=== PATIENT | male | born 1950 | race African-American/Black ===

== ENCOUNTER 2016-07-05 12:36 | Inpatient (IN) | payer MEDICARE, OTHER ==
[2016-07-05 13:51] LABS: ABSOLUTE BASOPHILS # (AUTO) 0.1 10^3/uL (0.0-0.2); ABSOLUTE LYMPHOCYTES (AUTO) 0.8 10^3/uL (0.5-4.7); ABSOLUTE MONOCYTES (AUTO) 1.4 10^3/uL (0.1-1.4); ABSOLUTE NEUT (AUTO) 6.7 10^3/uL (1.7-8.2); BASOPHILS % (AUTO) 0.9 % (0-2); EOSINOPHILS % (AUTO) 0.1 % (0-6); HEMATOCRIT 21.9 % (37.9-51.0); HGB HCT DIFFERENCE -2.1; LYMPHOCYTES % (AUTO) 8.6 % (13-45); MEAN CORPUSCULAR HEMOGLOBIN 18.8 pg (27.0-33.4); MEAN CORPUSCULAR VOLUME 63 fl (80-97); MONOCYTES % (AUTO) 15.8 % (3-13); RED BLOOD COUNT 3.49 10^6/uL (4.35-5.55); RED CELL DISTRIBUTION WIDTH 22.3 % (11.5-14.0); SEGMENTED NEUTROPHILS % (AUTO) 74.6 % (42-78)
[2016-07-05 13:55] LABS: ALANINE AMINOTRANSFERASE 21 U/L (21-72); ALKALINE PHOSPHATASE 37 U/L (38-126); ANION GAP 12 (5-19); ASPARTATE AMINO TRANSFERASE 22 U/L (17-59); BILIRUBIN,TOTAL 0.4 mg/dL (0.2-1.3); BLOOD UREA NITROGEN 18 mg/dL (7-20); CARBON DIOXIDE 23 mmol/L (22-30); CHLORIDE 106 mmol/L (98-107); CREATINE KINASE 77 U/L (55-170); CREATININE RESULT 1.38 mg/dL (0.52-1.25); GLUCOSE 97 mg/dL (75-110); POTASSIUM 4.1 mmol/L (3.6-5.0); SODIUM 140.6 mmol/L (137-145); TOTAL PROTEIN 6.3 g/dL (6.3-8.2)
[2016-07-05 13:56] LABS: APPEARANCE,URINE SLIGHTLY-CLOUDY; BILIRUBIN,URINE NEGATIVE (NEGATIVE); GLUCOSE, URINE NEGATIVE (NEGATIVE); KETONES,URINE TRACE mg/dL (NEGATIVE); LEUKOCYTE ESTERASE,URINE NEGATIVE (NEGATIVE); NITRITE,URINE NEGATIVE (NEGATIVE); PROTEIN,URINE NEGATIVE (NEGATIVE); URINE SPECIFIC GRAVITY 1.016; UROBILINOGEN,URINE NEGATIVE mg/dL (<2.0)
[2016-07-05 14:00] LABS: HEMOGLOBIN 6.6 g/dL (13.5-17.0)
--- NOTE | 2016-07-05 14:01 | ER Document Report ---
ED Dizziness/Weakness - General Chief Complaint: Dizziness Stated Complaint: DIZZINESS Mode of Arrival: Medic Information source: Patient, Emergency Med Personnel, Outside Facility Records TRAVEL OUTSIDE OF THE [place] IN LAST 30 DAYS: No - HPI Patient complains to provider of: Near-syncope - TODAY, IN WAITING ROOM @ [facility] Onset: This afternoon Onset/Duration: Sudden Quality of pain: No pain Context: denies: Chronic dizziness, Trauma, Vertigo Associated symptoms: Fainted, Lightheaded, Palpitations, Weak all over. denies : Chest pain Exacerbated by: Change in position - STANDING Baseline gait: Walks w/o assistance - Related Data Allergies/Adverse Reactions: amoxicillin [Amoxicillin] Allergy (Mild, Verified 02/11/16 14:02) diarrhea,vomiting,SOB Past Medical History - General Information source: Patient, Relative - Social History Smoking Status: Former Smoker Cigarette use (# per day): No Lives with: Spouse/Significant other Family History: CVA - MOTHER Patient has suicidal ideation: No Patient has homicidal ideation: No - Past Medical History Cardiac Medical History: Reports: Hx Coronary Artery Disease - 2 stents in legs ', Hx Hypercholesterolemia, Hx Hypertension - meds x many yrs, Hx Peripheral Vascular Disease, Other - TEMPORAL ARTERITIS Denies: Hx DVT, Hx Heart Attack Pulmonary Medical History: Reports: Hx Pneumonia Denies: Hx Asthma, Hx Bronchitis, Hx COPD - lung collapsed 1983 ,surgery , Hx Tuberculosis Neurological Medical History: Denies: Hx Cerebrovascular Accident, Hx Seizures Endocrine Medical History: Reports: Hx Diabetes Mellitus Type 2 Renal/ Medical History: Reports: None GI Medical History: Reports: Hx Hiatal Hernia Musculoskeltal Medical History: Reports Hx Arthritis - knees Skin Medical History: Reports None Psychiatric Medical History: Reports: None Past Surgical History: Reports: Hx Cardiac Surgery, Hx Orthopedic Surgery - left knee surgery, Hx Vascular Surgery - [facility] BYPASS 2004, Other - COLONOSCOPY 5-6 YRS AGO, NEG.. Denies: Hx Pacemaker - Immunizations Hx Diphtheria, Pertussis, Tetanus Vaccination: No Hx Pneumococcal Vaccination: 10/15/11 Review of Systems - Review of Systems Constitutional: See HPI EENT: No symptoms reported Cardiovascular: See HPI Respiratory: Short of breath Gastrointestinal: No symptoms reported. denies: Rectal bleeding Genitourinary: No symptoms reported. denies: Hematuria Musculoskeletal: No symptoms reported Skin: No symptoms reported Neurological/Psychological: No symptoms reported Physical Exam - Vital signs Vitals: Pulse Resp BP Pulse Ox 103 H 16 106/73 97 07/05/16 12:50 07/05/16 12:50 07/05/16 12:50 07/05/16 12:50 Interpretation: Hypotensive, Tachycardic - General General appearance: Appears well, Alert In distress: None - HEENT Head: Normocephalic Eyes: Pale conjunctiva Ears: Normal Nasal: Normal Mouth/Lips: Normal Mucous membranes: Normal Pharynx: Normal Neck: Normal - Respiratory Respiratory status: No respiratory distress Breath sounds: Normal - Cardiovascular Rhythm: Regular Heart sounds: Normal auscultation Murmur: No - Abdominal Inspection: Normal Distension: No distension Bowel sounds: Normal - Rectal Tenderness: No Hemorrhoids: None Prostate: Normal - Extremities General upper extremity: Normal inspection General lower extremity: Normal inspection. No: Edema - Neurological Neuro grossly intact: Yes Cognition: Normal Orientation: AAOx4 - Psychological Associated symptoms: Normal affect, Normal mood - Skin Skin Temperature: Warm Skin Moisture: Dry Skin Color: Normal Skin Turgor: Elastic Course - Vital Signs Vital signs: Temp Pulse Resp BP Pulse Ox 98.7 F 103 H 18 119/64 98 07/05/16 14:01 07/05/16 12:50 07/05/16 14:01 07/05/16 14:01 07/05/16 14:01 - Laboratory Result Diagrams: 07/05/16 12:50 07/05/16 12:50 Laboratory results interpreted by me: 07/05/16 07/05/16 07/05/16 12:50 12:50 13:28 RBC 3.49 L Hgb 6.6 L Hct 21.9 L MCV 63 L MCH 18.8 L MCHC 30.0 L RDW 22.3 H Lymphocytes % 8.6 L Monocytes % 15.8 H Creatinine 1.38 H Est GFR (Non-Af Amer) 51 L Alkaline Phosphatase 37 L Urine Ketones TRACE H Urine Ascorbic Acid 40 H Crossmatch 07/05/16 15:00 RBC Hgb Hct MCV MCH MCHC RDW Lymphocytes % Monocytes % Creatinine Est GFR (Non-Af Amer) Alkaline Phosphatase Urine Ketones Urine Ascorbic Acid Crossmatch See Detail - Diagnostic Test Radiology reviewed: Image reviewed, Reports reviewed - EKG Interpretation by Me EKG shows normal: Sinus rhythm, [place], Intervals, QRS Complexes, ST-T Waves Rate: Tachycardia - Consults DR. GUZMAN Time consulted: 16:20 Consulted provider: will see as inpatient Discharge - Discharge Clinical Impression: Hx of temporal arteritis Anemia Qualifiers: Anemia type: unspecified type Qualified Code(s): D64.9 - Anemia, unspecified Syncope Qualifiers: Syncope type: unspecified Qualified Code(s): R55 - Syncope and collapse Diabetes mellitus type II, controlled Qualifiers: Diabetes mellitus complication status: with kidney complications Diabetes mellitus complication detail: with chronic kidney disease Diabetes mellitus detention insulin use: without detention use Chronic kidney disease stage: unspecified stage Qualified Code(s): E11.22 - Type 2 diabetes mellitus with diabetic chronic kidney disease Condition: Good Disposition: ADMITTED INPATIENT Admitting Provider: Walter Unit Admitted: Telemetry
[2016-07-05 14:07] LABS: CREATINE KINASE MB 0.8 ng/mL (<4.55)
[2016-07-05 14:12] LABS: HYPOCHROMASIA 1+; POLYCHROMASIA SLIGHT; TOXIC GRANULATION SLIGHT
[2016-07-05 14:13] LABS: ANISOCYTOSIS 2+; SCHISTOCYTES SLIGHT
[2016-07-05 14:15] LABS: MICROCYTOSIS 2+
[2016-07-05 14:20] LABS: TROPONIN I 0.164 ng/mL
[2016-07-05] MEDS ORDERED: NORMAL SALINE 250 ML IV PRN (14:57)
[2016-07-05 15:32] LABS: PROTHROMBIN TIME 13.2 SEC (11.4-15.4)
[2016-07-05 17:38] LABS: LIPASE 41.6 U/L (23-300); PHOSPHORUS 3.8 mg/dL (2.5-4.5)
[2016-07-05 18:09] LABS: CARCINOEMBRYONIC ANTIGEN 2.7 ng/mL (<3.0)
--- NOTE | 2016-07-05 22:13 | EKG REPORT ---
SEVERITY:- OTHERWISE NORMAL ECG - SINUS TACHYCARDIA : Confirmed by: oRbert Blas 05-Jul-2016 22:11:33
[2016-07-06] MEDS ORDERED: FOLIC ACID 1 MG TABLET PO ONE (00:15)
[2016-07-06] MEDS ORDERED: GLIPIZIDE 10 MG TABLET PO ONE (00:15)
[2016-07-06] MEDS ORDERED: ATORVASTATIN CALCIUM 10 MG TABLET PO ONE (00:15)
[2016-07-06] MEDS ORDERED: HYDROCHLOROTHIAZIDE 25 MG TABLET PO ONE (00:15)
[2016-07-06] MEDS ORDERED: LISINOPRIL 10 MG TABLET PO ONE (00:15)
[2016-07-06] MEDS ORDERED: OMEGA-3 ACID ETHYL ESTERS 1 GM CAPSULE PO ONE (00:15)
[2016-07-06] MEDS ORDERED: LANSOPRAZOLE 15 MG TAB.RAP.DR PO ONE (00:15)
[2016-07-06] MEDS ORDERED: ASPIRIN 81 MG TABLET, CHEWABLE PO ONE (00:15)
[2016-07-06] MEDS ORDERED: CLOPIDOGREL BISULFATE 75 MG TABLET PO ONE (00:15)
[2016-07-06] MEDS ORDERED: METOPROLOL SUCCINATE 25 MG TAB.SR.24H PO ONE (00:15)
[2016-07-06] MEDS ORDERED: METFORMIN HCL 500 MG TABLET PO ONE (01:00)
[2016-07-06] MEDS ORDERED: DOXAZOSIN MESYLATE 2 MG TABLET PO ONE (01:00)
[2016-07-06] MEDS: NORMAL SALINE 1000 ML 1,000 ML IV PRN ×3 (01:38→12:14)
[2016-07-06 04:40] LABS: HEMATOCRIT 25.7 % (37.9-51.0); HGB HCT DIFFERENCE -1.7; MEAN CORPUSCULAR HEMOGLOBIN 20.5 pg (27.0-33.4); MEAN CORPUSCULAR HGB CONC 31.2 g/dL (32.0-36.0); MEAN CORPUSCULAR VOLUME 66 fl (80-97); RED BLOOD COUNT 3.91 10^6/uL (4.35-5.55); RED CELL DISTRIBUTION WIDTH 26.6 % (11.5-14.0); WHITE BLOOD COUNT 5.7 10^3/uL (4.0-10.5)
[2016-07-06 04:41] LABS: ANION GAP 9 (5-19); BLOOD UREA NITROGEN 13 mg/dL (7-20); CALCIUM 8.8 mg/dL (8.4-10.2); CARBON DIOXIDE 25 mmol/L (22-30); CHLORIDE 104 mmol/L (98-107); CREATININE RESULT 1.27 mg/dL (0.52-1.25); GLUCOSE 108 mg/dL (75-110); POTASSIUM 4.1 mmol/L (3.6-5.0); SODIUM 138.3 mmol/L (137-145)
[2016-07-06 04:53] LABS: BASOPHILS % (MANUAL) 0 % (0-2); EOSINOPHILS % (MANUAL) 0 % (0-6); LYMPHOCYTES % (MANUAL) 22 % (13-45); TOTAL CELLS COUNTED 100
[2016-07-06 04:57] LABS: ANISOCYTOSIS 3+; HYPOCHROMASIA 2+; MICROCYTOSIS 2+; OVALOCYTES 1+; POIKILOCYTOSIS 1+; POLYCHROMASIA 1+; SCHISTOCYTES 1+; TOXIC GRANULATION SLIGHT
[2016-07-06 04:58] LABS: TARGET CELLS SLIGHT
[2016-07-06 05:17] LABS: FERRITIN 9.08 ng/mL (17.9-464.0)
[2016-07-06 05:52] LABS: FOLATE > 20.00 ng/mL (>2.76)
[2016-07-06] MEDS: GLIPIZIDE 10 MG TABLET PO SCH ×3 (09:16→17:45)
[2016-07-06] MEDS: METFORMIN HCL 500 MG TABLET PO SCH ×3 (09:16→17:45)
[2016-07-06] MEDS: HYDROCHLOROTHIAZIDE 25 MG TABLET PO SCH (09:17)
[2016-07-06] MEDS: LANSOPRAZOLE 15 MG TAB.RAP.DR PO SCH (09:18)
[2016-07-06] MEDS: OMEGA-3 ACID ETHYL ESTERS 1 GM CAPSULE PO SCH (09:19)
[2016-07-06] MEDS: METOPROLOL SUCCINATE 25 MG TAB.SR.24H PO SCH (09:20)
[2016-07-06] MEDS: CLOPIDOGREL BISULFATE 75 MG TABLET PO SCH (09:20)
[2016-07-06] MEDS ORDERED: CINNAMON BARK 1000 MG PO SCH (10:00)
[2016-07-06] MEDS ORDERED: ASPIRIN 81 MG TABLET, CHEWABLE PO SCH (10:00)
[2016-07-06] MEDS ORDERED: FOLIC ACID 1 MG TABLET PO SCH (10:00)
[2016-07-06] MEDS ORDERED: ATORVASTATIN CALCIUM 10 MG TABLET PO SCH (10:00)
[2016-07-06] MEDS: POTASSIUM CHLORIDE 10 MEQ TABLET.SA PO SCH ×2 (10:37→17:45)
[2016-07-06] MEDS ORDERED: PREDNISONE 1 MG TABLET PO ONE (11:00)
[2016-07-06] MEDS ORDERED: PREDNISONE 5 MG TABLET PO ONE (11:00)
[2016-07-06] MEDS: FOLIC ACID 1 MG TABLET PO SCH (12:13)
[2016-07-06] MEDS: LISINOPRIL 10 MG TABLET PO SCH (12:16)
--- NOTE | 2016-07-06 15:52 | PDOC H&P ---
History of Present Illness Admission Date/PCP: 07/05/16 16:58 JOSEPH AKINS MD History of Present Illness: JOSE GAMEZ is a 65 year old male with history of peripheral vascular disease , status post aorto- bifemoral bypass graft many years ago, he was in the waiting room of Dr. Akins's office when he had episode of a near syncope spell. He was then transferred from the urgent care to the emergency room for evaluation. In the emergency room he was evaluated he was found to have hemoglobin of 6.6 with very low MCV, subsequentl blood work revealed severe iron deficiency with low ferritin, serum iron. Patient denies any passage of black tarry stool or any hematochezia, he had colonoscopy about 5 years ago, but he admitted to having episodic epistaxis almost on a regular basis the last couple of weeks. He believes that could have been the reason for the anemia,in the emergency room cardiac enzymes drawn and it was elevated at 0.1. He denied any chest pain or any chest symptoms, he has risk factors for ischemic heart disease, he has diabetes mellitus, peripheral vascular disease. 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, he said the vessel of the scalp was biopsied, he is on tapering dose of prednisone for that Past Medical History Cardiac Medical History: Reports: Hyperlipidema, Hypertension - meds x many yrs , Peripheral Vascular Disease, Other - TEMPORAL ARTERITIS Pulmonary Medical History: Reports: Pneumonia Endocrine Medical History: Reports: Diabetes Mellitus Type 2 Renal/ Medical History: Reports: None GI Medical History: Reports: Hiatal Hernia Musculoskeltal Medical History: Reports: Arthritis - knees Skin Medical History: Reports: None Psychiatric Medical History: Reports: None Past Surgical History Past Surgical History: Reports: Orthopedic Surgery - left knee surgery, Vascular Surgery - [facility] BYPASS 2004, Other - COLONOSCOPY 5-6 YRS AGO, NEG. Social History Lives with: Spouse/Significant other Smoking Status: Former Smoker Frequency of Alcohol Use: None Hx Recreational Drug Use: No Hx Prescription Drug Abuse: No - Advance Directive Resuscitation Status: Full Code Family History Family History: CVA - MOTHER Parental Family History Reviewed: Yes Children Family History Reviewed: Yes Sibling(s) Family History Reviewed.: Yes Medication/Allergy Home Medications: Aspirin [Aspirin 81 mg Chewable Tablet] 81 mg PO 1600 10/13/11 Clopidogrel Bisulfate [Plavix 75 Mg Tablet] 75 mg PO DAILY 10/13/11 Docosahexanoic Acid/Epa [Fish Oil Softgel] 1 each PO DAILY 10/13/11 Glipizide 10 mg PO TID 10/13/11 Lisinopril/Hydrochlorothiazide [Zestoretic 20-25 Mg Tablet] 1 each PO DAILY 14/05 Metformin HCl [Glucophage] 1,000 mg PO TID 10/13/11 Metoprolol Succinate [Toprol-Xl 25 Mg Tab.Sr] 25 mg PO DAILY 10/13/11 Temazepam [Restoril] 30 mg PO QHS 10/13/11 Terazosin HCl [Hytrin] 2 mg PO QHS 10/13/11 Potassium Chloride [Klor-Con 10 Meq Tablet.sa] 10 meq PO BID 10/17/12 Atorvastatin Calcium [Lipitor 10 mg Tablet] 10 mg PO DAILY 02/11/16 Cinnamon Bark [Cinnamon Bark 500 mg Capsule] 1,000 mg PO DAILY 02/11/16 Folic Acid [Folic Acid] 1 mg PO DAILY 07/05/16 Omeprazole [Omeprazole] 20 mg PO DAILY 07/05/16 Prednisone [Prednisone] 1 mg PO DAILY 07/05/16 Prednisone [Prednisone] 5 mg PO DAILY 07/05/16 Allergies/Adverse Reactions: amoxicillin [Amoxicillin] Allergy (Mild, Verified 02/11/16 14:02) diarrhea,vomiting,SOB Review of Systems Constitutional: PRESENT: fatigue, weakness Eyes: ABSENT: visual disturbances Ears: ABSENT: hearing changes Cardiovascular: ABSENT: chest pain, dyspnea on exertion, edema, orthropnea, palpitations Respiratory: ABSENT: cough, hemoptysis Gastrointestinal: ABSENT: abdominal pain, constipation, diarrhea, hematemesis, hematochezia, nausea, vomiting Genitourinary: ABSENT: dysuria, hematuria Musculoskeletal: ABSENT: joint swelling Integumentary: ABSENT: rash, wounds Neurological: PRESENT: other - Near syncope Psychiatric: ABSENT: anxiety, depression, homidical ideation, suicidal ideation Endocrine: ABSENT: cold intolerance, heat intolerance, menstrual abnormalities, polydipsia, polyuria Hematologic/Lymphatic: ABSENT: easy bleeding, easy bruising, lymphadenopathy Physical Exam Vital Signs: Temp Pulse Resp BP Pulse Ox 97.9 F 101 H 18 117/71 98 07/06/16 12:13 07/06/16 14:00 07/06/16 12:13 07/06/16 12:13 07/06/16 12:13 Intake & Output 07/05/16 07/06/16 07/07/16 06:59 06:59 06:59 Intake Total 1360 Output Total 250 Balance 1110 Weight 87.9 kg General appearance: PRESENT: no acute distress, well-developed, well-nourished Head exam: PRESENT: atraumatic, normocephalic Eye exam: PRESENT: conjunctiva pink, EOMI, PERRLA Neck exam: PRESENT: full ROM Respiratory exam: PRESENT: clear to auscultation aurora, rhonchi Cardiovascular exam: PRESENT: RRR, +S1, +S2 GI/Abdominal exam: PRESENT: normal bowel sounds, soft Rectal exam: PRESENT: deferred Neurological exam: PRESENT: alert, awake, oriented to person, oriented to place , oriented to time, oriented to situation, CN II-XII grossly intact Psychiatric exam: PRESENT: appropriate affect, normal mood Skin exam: PRESENT: dry, intact, warm Results Laboratory Results: 07/06/16 03:58 07/06/16 03:58 07/06/16 07/06/16 03:58 03:58 WBC 5.7 RBC 3.91 L Hgb 8.0 L Hct 25.7 L MCV 66 L MCH 20.5 L MCHC 31.2 L RDW 26.6 H Plt Count 314 Seg Neutrophils % Not Reportable Lymphocytes % Not Reportable Monocytes % Not Reportable Eosinophils % Not Reportable Basophils % Not Reportable Absolute Neutrophils Not Reportable Absolute Lymphocytes Not Reportable Absolute Monocytes Not Reportable Absolute Eosinophils Not Reportable Absolute Basophils Not Reportable Retic Count (auto) 1.35 Absolute Retic 0.053 Sodium 138.3 Potassium 4.1 Chloride 104 Carbon Dioxide 25 Anion Gap 9 BUN 13 Creatinine 1.27 H Est GFR ( Amer) > 60 Est GFR (Non-Af Amer) 57 L Glucose 108 Calcium 8.8 Iron 12 L TIBC 357 % Saturation 3 Ferritin 9.08 L Vitamin B12 606.0 Folate > 20.00 07/05/16 07/06/16 07/06/16 22:06 03:58 10:21 Troponin I 0.134 0.112 0.082 Impressions: Renal Ultrasound 07/06/16 00:00 IMPRESSION: UNREMARKABLE RENAL AND BLADDER ULTRASOUND. NO OBSTRUCTIVE UROPATHY. Assessment & Plan - Diagnosis (1) Anemia Qualifiers: Anemia type: iron deficiency Iron deficiency anemia type: chronic blood loss Qualified Code(s): D50.0 - Iron deficiency anemia secondary to blood loss (chronic) Is this a current diagnosis for this admission?: YesPlan: He has severe symptomatic iron deficiency anemia with hemoglobin of 6, this is most likely from chronic blood loss, patient stated that he has been experiencing nosebleeds on a regular basis for the last couple of months, he denies passage of black tarry stool. He is on antiplatelet medication, dual therapy, with Plavix and aspirin. We will request CT of the sinuses to rule out any pathology. (2) Elevated troponin Is this a current diagnosis for this admission?: YesPlan: I am not sure what this means, he has no chest pain, the troponin is marginally elevated, he has risk factors of vascular disease, he has PAD status post aortic femoral bypass, we will request for a 2-D echo to assess wall motion and also ejection fraction of the left ventricle. (3) Temporal arteritis Is this a current diagnosis for this admission?: YesPlan: He has a history of left temporal arteritis and he is on prednisone (4) Diabetes mellitus type II, controlled Qualifiers: Diabetes mellitus complication status: with kidney complications Diabetes mellitus complication detail: with chronic kidney disease Diabetes mellitus custodial insulin use: without technician terminal and repeater use Chronic kidney disease stage: unspecified stage Qualified Code(s): E11.22 - Type 2 diabetes mellitus with diabetic chronic kidney disease; N18.1 - Chronic kidney disease, stage 1; Z79.4 - watermelon inspector (current) use of insulin Is this a current diagnosis for this admission?: Yes (5) Hx of temporal arteritis Is this a current diagnosis for this admission?: Yes (6) Acute kidney injury Is this a current diagnosis for this admission?: YesPlan: This is most likely prerenal, the kidney ultrasound did not show any hydronephrosis.
--- NOTE | 2016-07-06 15:55 | PDOC PROGRESS REPORT ---
Subjective Progress Note for:: 07/06/16 Subjective:: Patient was seen by the bedside, the posttransfusion hemoglobin is 8, he may need 2 more units of blood. We will request CT scan of the sinuses to rule out any pathology of the sinus, the troponin is on the decline Physical Exam Vital Signs: Temp Pulse Resp BP Pulse Ox 97.9 F 101 H 18 117/71 98 07/06/16 12:13 07/06/16 14:00 07/06/16 12:13 07/06/16 12:13 07/06/16 12:13 Intake & Output 07/05/16 07/06/16 07/07/16 06:59 06:59 06:59 Intake Total 1360 Output Total 250 Balance 1110 Weight 87.9 kg General appearance: PRESENT: no acute distress Eye exam: PRESENT: PERRLA Respiratory exam: PRESENT: clear to auscultation aurora Cardiovascular exam: PRESENT: +S1, +S2 Neurological exam: PRESENT: alert, CN II-XII grossly intact Results Laboratory Results: 07/06/16 03:58 07/06/16 03:58 07/06/16 07/06/16 03:58 03:58 WBC 5.7 RBC 3.91 L Hgb 8.0 L Hct 25.7 L MCV 66 L MCH 20.5 L MCHC 31.2 L RDW 26.6 H Plt Count 314 Seg Neutrophils % Not Reportable Lymphocytes % Not Reportable Monocytes % Not Reportable Eosinophils % Not Reportable Basophils % Not Reportable Absolute Neutrophils Not Reportable Absolute Lymphocytes Not Reportable Absolute Monocytes Not Reportable Absolute Eosinophils Not Reportable Absolute Basophils Not Reportable Retic Count (auto) 1.35 Absolute Retic 0.053 Sodium 138.3 Potassium 4.1 Chloride 104 Carbon Dioxide 25 Anion Gap 9 BUN 13 Creatinine 1.27 H Est GFR ( Amer) > 60 Est GFR (Non-Af Amer) 57 L Glucose 108 Calcium 8.8 Iron 12 L TIBC 357 % Saturation 3 Ferritin 9.08 L Vitamin B12 606.0 Folate > 20.00 07/05/16 07/06/16 07/06/16 22:06 03:58 10:21 Troponin I 0.134 0.112 0.082 Impressions: Renal Ultrasound 07/06/16 00:00 IMPRESSION: UNREMARKABLE RENAL AND BLADDER ULTRASOUND. NO OBSTRUCTIVE UROPATHY. Assessment & Plan - Diagnosis (1) Anemia Qualifiers: Anemia type: iron deficiency Iron deficiency anemia type: chronic blood loss Qualified Code(s): D50.0 - Iron deficiency anemia secondary to blood loss (chronic) Is this a current diagnosis for this admission?: YesPlan: Transfuse 2 more units of blood (2) Elevated troponin Is this a current diagnosis for this admission?: Yes (3) Temporal arteritis Is this a current diagnosis for this admission?: Yes (4) Diabetes mellitus type II, controlled Qualifiers: Diabetes mellitus complication status: with kidney complications Diabetes mellitus complication detail: with chronic kidney disease Diabetes mellitus detention insulin use: without detention use Chronic kidney disease stage: unspecified stage Qualified Code(s): E11.22 - Type 2 diabetes mellitus with diabetic chronic kidney disease; N18.1 - Chronic kidney disease, stage 1; Z79.4 - retirement (current) use of insulin Is this a current diagnosis for this admission?: Yes (5) Hx of temporal arteritis Is this a current diagnosis for this admission?: Yes (6) Acute kidney injury Is this a current diagnosis for this admission?: Yes
[2016-07-06] MEDS ORDERED: NORMAL SALINE 250 ML IV PRN ×2 (15:56)
[2016-07-06] MEDS: ASPIRIN 81 MG TABLET, CHEWABLE PO SCH (16:58)
[2016-07-06] MEDS ORDERED: DOXAZOSIN MESYLATE 2 MG TABLET PO SCH (22:00)
[2016-07-06] MEDS: TEMAZEPAM 15 MG CAPSULE PO SCH (22:39)
[2016-07-06] MEDS: ATORVASTATIN CALCIUM 10 MG TABLET PO SCH (22:39)
[2016-07-06] MEDS: DOXAZOSIN MESYLATE 2 MG TABLET PO SCH ×2 (22:40→23:26)
[2016-07-07 08:03] LABS: ABSOLUTE BASOPHILS # (AUTO) 0.1 10^3/uL (0.0-0.2); ABSOLUTE EOSINOPHILS # (AUTO) 0.1 10^3/uL (0.0-0.6); ABSOLUTE LYMPHOCYTES (AUTO) 1.4 10^3/uL (0.5-4.7); ABSOLUTE NEUT (AUTO) 4.3 10^3/uL (1.7-8.2); BASOPHILS % (AUTO) 0.8 % (0-2); EOSINOPHILS % (AUTO) 1.4 % (0-6); HEMATOCRIT 28.8 % (37.9-51.0); HEMOGLOBIN 9.1 g/dL (13.5-17.0); HGB HCT DIFFERENCE -1.5; LYMPHOCYTES % (AUTO) 20.9 % (13-45); MEAN CORPUSCULAR HEMOGLOBIN 21.2 pg (27.0-33.4); MEAN CORPUSCULAR HGB CONC 31.7 g/dL (32.0-36.0); MEAN CORPUSCULAR VOLUME 67 fl (80-97); MONOCYTES % (AUTO) 15.1 % (3-13); RED CELL DISTRIBUTION WIDTH 25.8 % (11.5-14.0); SEGMENTED NEUTROPHILS % (AUTO) 61.8 % (42-78); WHITE BLOOD COUNT 6.9 10^3/uL (4.0-10.5)
[2016-07-07 08:08] LABS: ALANINE AMINOTRANSFERASE 28 U/L (21-72); ALBUMIN 3.2 g/dL (3.5-5.0); ALKALINE PHOSPHATASE 36 U/L (38-126); ANION GAP 12 (5-19); ASPARTATE AMINO TRANSFERASE 21 U/L (17-59); BILIRUBIN,TOTAL 0.6 mg/dL (0.2-1.3); BLOOD UREA NITROGEN 13 mg/dL (7-20); CARBON DIOXIDE 22 mmol/L (22-30); CHLORIDE 107 mmol/L (98-107); GLUCOSE 42 mg/dL (75-110); POTASSIUM 4.1 mmol/L (3.6-5.0); SODIUM 140.5 mmol/L (137-145); TOTAL PROTEIN 5.6 g/dL (6.3-8.2)
[2016-07-07 08:19] LABS: ANISOCYTOSIS 3+; HYPOCHROMASIA 2+; MICROCYTOSIS 3+; OVALOCYTES 1+; POIKILOCYTOSIS 2+; POLYCHROMASIA 1+; SCHISTOCYTES 1+; TEAR DROP CELLS SLIGHT
[2016-07-07] MEDS: NORMAL SALINE 1000 ML 1,000 ML IV PRN (10:28)
[2016-07-07] MEDS: POTASSIUM CHLORIDE 10 MEQ TABLET.SA PO SCH ×2 (10:29→18:25)
[2016-07-07] MEDS: METFORMIN HCL 500 MG TABLET PO SCH ×3 (10:30→18:25)
[2016-07-07] MEDS: PREDNISONE 5 MG TABLET PO SCH (10:30)
[2016-07-07] MEDS: LANSOPRAZOLE 15 MG TAB.RAP.DR PO SCH (10:30)
[2016-07-07] MEDS: HYDROCHLOROTHIAZIDE 25 MG TABLET PO SCH (10:30)
[2016-07-07] MEDS: PREDNISONE 1 MG TABLET PO SCH (10:31)
[2016-07-07] MEDS: LISINOPRIL 10 MG TABLET PO SCH (10:31)
[2016-07-07] MEDS: GLIPIZIDE 10 MG TABLET PO SCH ×3 (10:31→18:26)
[2016-07-07] MEDS: CLOPIDOGREL BISULFATE 75 MG TABLET PO SCH (10:31)
[2016-07-07] MEDS: METOPROLOL SUCCINATE 25 MG TAB.SR.24H PO SCH (10:32)
[2016-07-07] MEDS: OMEGA-3 ACID ETHYL ESTERS 1 GM CAPSULE PO SCH (10:36)
[2016-07-07] MEDS: FOLIC ACID 1 MG TABLET PO SCH (12:46)
[2016-07-07] MEDS: ASPIRIN 81 MG TABLET, CHEWABLE PO SCH (16:35)
--- NOTE | 2016-07-07 19:06 | PDOC PROGRESS REPORT ---
Subjective Progress Note for:: 07/07/16 Subjective:: Patient was seen by the bedside, he was admitted because of severe iron deficiency anemia, he was transfused with 4 units of packed red blood cells, he indicated that he had epistasis, CT scan of the sinuses was done and it was negative for any acute pathology. I am not convinced that the epistasis with explain the severe iron deficiency anemia. I believe he needs to have GI endoscopy and patient is in agreement with that plan, GI consultation will be requested for GI endoscopy including EGD and colonoscopy. Physical Exam Vital Signs: Temp Pulse Resp BP Pulse Ox 98 F 85 15 105/53 L 98 07/07/16 16:00 07/07/16 16:00 07/07/16 16:00 07/07/16 16:00 07/07/16 16:00 Intake & Output 07/06/16 07/07/16 07/08/16 06:59 06:59 06:59 Intake Total 1360 3543 940 Output Total 250 1700 1100 Balance 1110 1843 -160 Weight 87.9 kg 91.1 kg General appearance: PRESENT: no acute distress Eye exam: PRESENT: PERRLA Respiratory exam: PRESENT: clear to auscultation aurora Cardiovascular exam: PRESENT: +S1, +S2 GI/Abdominal exam: PRESENT: soft Neurological exam: PRESENT: alert, CN II-XII grossly intact Results Laboratory Results: 07/07/16 07:31 07/07/16 07:31 07/07/16 07/07/16 07:31 07:31 WBC 6.9 RBC 4.30 L Hgb 9.1 L Hct 28.8 L MCV 67 L MCH 21.2 L MCHC 31.7 L RDW 25.8 H Plt Count 284 Seg Neutrophils % 61.8 Lymphocytes % 20.9 Monocytes % 15.1 H Eosinophils % 1.4 Basophils % 0.8 Absolute Neutrophils 4.3 Absolute Lymphocytes 1.4 Absolute Monocytes 1.0 Absolute Eosinophils 0.1 Absolute Basophils 0.1 Sodium 140.5 Potassium 4.1 Chloride 107 Carbon Dioxide 22 Anion Gap 12 BUN 13 Creatinine 1.10 Est GFR ( Amer) > 60 Est GFR (Non-Af Amer) > 60 Glucose 42 L Calcium 9.0 Total Bilirubin 0.6 AST 21 ALT 28 Alkaline Phosphatase 36 L Total Protein 5.6 L Albumin 3.2 L 07/05/16 07/06/16 07/06/16 22:06 03:58 10:21 Troponin I 0.134 0.112 0.082 Impressions: Renal Ultrasound 07/06/16 00:00 IMPRESSION: UNREMARKABLE RENAL AND BLADDER ULTRASOUND. NO OBSTRUCTIVE UROPATHY. Sinuses CT 07/06/16 00:00 IMPRESSION: NO EVIDENCE OF ACUTE OR CHRONIC SINUSITIS. Assessment & Plan - Diagnosis (1) Anemia Qualifiers: Anemia type: iron deficiency Iron deficiency anemia type: chronic blood loss Qualified Code(s): D50.0 - Iron deficiency anemia secondary to blood loss (chronic) Is this a current diagnosis for this admission?: Yes (2) Elevated troponin Is this a current diagnosis for this admission?: YesPlan: The 2-D echo was reviewed, it looks normal (3) Temporal arteritis Is this a current diagnosis for this admission?: Yes (4) Diabetes mellitus type II, controlled Qualifiers: Diabetes mellitus complication status: with kidney complications Diabetes mellitus complication detail: with chronic kidney disease Diabetes mellitus long term care administrator insulin use: without long term care administrator use Chronic kidney disease stage: unspecified stage Qualified Code(s): E11.22 - Type 2 diabetes mellitus with diabetic chronic kidney disease; N18.1 - Chronic kidney disease, stage 1; Z79.4 - terminologist (current) use of insulin Is this a current diagnosis for this admission?: Yes (5) Hx of temporal arteritis Is this a current diagnosis for this admission?: Yes (6) Acute kidney injury Is this a current diagnosis for this admission?: YesPlan: This is resolved
--- NOTE | 2016-07-07 19:36 | XCELERA REPORT ---
[address] [address] Transthoracic Echocardiogram Report Name: JOSE GAMEZ Age: 65 yrs Gender: Male : 1950 Patient Status: Inpatient Patient Location: 5\S\536\S\A Study Date: 07/07/2016 10:49 AM Height: 72 in Weight: 196 lb BSA: 2.1 m2 Reason For Study: elevated troponin Ordering Physician: RAVEN GUZMAN Performed By: Anam Olvera Interpretation Summary , LV = not all LV segments visualised, mary the basal lat and basal anterior arriola. there is definite hypokinetic segments. unable to assess chronicity. Overal LVEF is 55-60% with no LV enlargement.Patient has Stage I LVDD seen. Normal AV, normal MV except for mitral annular calcification. No LA enlargement. RH is normal RVSP is 31 mm Hg, No ASD. 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 Mild NM MMode/2D Measurements \T\ Calculations RVDd: 2.6 cm LVIDd: 5.2 cm FS: 33.1 % Ao root diam: 3.7 cm IVSd: 0.99 cm LVIDs: 3.5 cm EDV(Teich): 128.8 ml LVPWd: 1.0 cm ESV(Teich): 49.8 ml Ao root area: 10.9 cm2 EF(Teich): 61.3 % LA dimension: 3.5 cm Doppler Measurements \T\ Calculations MV E max salome: MV P1/2t max salome: Ao V2 max: LV V1 max P.0 cm/sec 79.0 cm/sec 149.3 cm/sec 3.8 mmHg MV A max salome: MV P1/2t: 59.2 msec Ao max PG: LV V1 max: 102.2 cm/sec 8.9 mmHg 97.2 cm/sec MV E/A: 0.77 MVA(P1/2t): 3.7 cm2 MV dec slope: 391.0 cm/sec2 MV dec time: 0.20 sec PA V2 max: PI end-d salome: TR max salome: RAP systole: 68.1 cm/sec 118.1 cm/sec 254.9 cm/sec 10.0 mmHg PA max P.9 mmHg TR max P.0 mmHg RVSP(TR): 36.0 mmHg Left Ventricle The left ventricle is normal in size. There is normal left ventricular wall thickness. The left ventricular ejection fraction is normal. LV EF is 60%. Doppler measurements suggest impaired left ventricular relaxation, which is associated with grade I/IV or mild diastolic dysfunction. There are regional wall motion abnormalities as specified. There is no thrombus. Right Ventricle The right ventricle is normal in size, thickness and function. The right ventricular systolic function is normal. Atria The right atrium is normal. The left atrial size is normal. The interatrial septum is intact with no evidence for an atrial septal defect. Mitral Valve There is mild mitral annular calcification. The mitral valve is grossly normal. There is no evidence of mitral valve prolapse. There is no vegetation seen on the mitral valve. There is no mitral valve stenosis. There is a trace amount of mitral regurgitation. Aortic Valve The aortic valve is trileaflet. The aortic valve opens well. The aortic valve is normal in structure and function. There is no aortic valvular vegetation. There is no aortic valve stenosis. There is a trace amount of aortic regurgitation. Tricuspid Valve The tricuspid valve is not well visualized, but is grossly normal. There is no tricuspid valve prolapse. There is no tricuspid stenosis. There is a trace to mild amount of tricuspid regurgitation. Right ventricular systolic pressure is estimated to be within upper limit of normal. Pulmonic Valve The pulmonic valve is not well visualized. There is a mild amount of pulmonic regurgitation. Great Vessels The aortic root is normal size. Effusions Minimal pericardial effusion. I WMSI = 1.29 % Normal = 71 Segments Size X - Cannot 1 - Normal 2 - 3 - Akinetic4 - 1-2 small Interpret Hypokinetic Dyskinetic 3-5 moderate 5 - 6-14 large Aneurysmal 15-16 diffuse : RAVEN GUZMAN > Tristin Roman
[2016-07-07] MEDS: TEMAZEPAM 15 MG CAPSULE PO SCH (22:28)
[2016-07-07] MEDS: ATORVASTATIN CALCIUM 10 MG TABLET PO SCH (22:28)
[2016-07-08 05:41] LABS: ANION GAP 13 (5-19); BLOOD UREA NITROGEN 11 mg/dL (7-20); CALCIUM 9.1 mg/dL (8.4-10.2); CARBON DIOXIDE 24 mmol/L (22-30); CHLORIDE 106 mmol/L (98-107); CREATININE RESULT 1.04 mg/dL (0.52-1.25); GLUCOSE 95 mg/dL (75-110); POTASSIUM 3.9 mmol/L (3.6-5.0); SODIUM 143.1 mmol/L (137-145)
[2016-07-08 06:02] LABS: ABSOLUTE EOSINOPHILS # (AUTO) 0.2 10^3/uL (0.0-0.6); ABSOLUTE LYMPHOCYTES (AUTO) 1.8 10^3/uL (0.5-4.7); ABSOLUTE MONOCYTES (AUTO) 0.8 10^3/uL (0.1-1.4); ABSOLUTE NEUT (AUTO) 4.7 10^3/uL (1.7-8.2); BASOPHILS % (AUTO) 0.5 % (0-2); EOSINOPHILS % (AUTO) 2.1 % (0-6); HEMATOCRIT 28.6 % (37.9-51.0); HEMOGLOBIN 9.2 g/dL (13.5-17.0); LYMPHOCYTES % (AUTO) 23.6 % (13-45); MEAN CORPUSCULAR HEMOGLOBIN 21.3 pg (27.0-33.4); MEAN CORPUSCULAR HGB CONC 32.1 g/dL (32.0-36.0); MEAN CORPUSCULAR VOLUME 66 fl (80-97); MONOCYTES % (AUTO) 11.1 % (3-13); RED BLOOD COUNT 4.31 10^6/uL (4.35-5.55); RED CELL DISTRIBUTION WIDTH 25.7 % (11.5-14.0); SEGMENTED NEUTROPHILS % (AUTO) 62.7 % (42-78); WHITE BLOOD COUNT 7.5 10^3/uL (4.0-10.5)
[2016-07-08 06:14] LABS: ACANTHOCYTES SLIGHT; ANISOCYTOSIS 3+; HYPOCHROMASIA 2+; MICROCYTOSIS 2+; OVALOCYTES 1+; POIKILOCYTOSIS 1+; POLYCHROMASIA 1+; TEAR DROP CELLS SLIGHT
[2016-07-08] MEDS: LANSOPRAZOLE 15 MG TAB.RAP.DR PO SCH (09:23)
[2016-07-08] MEDS: HYDROCHLOROTHIAZIDE 25 MG TABLET PO SCH (09:23)
[2016-07-08] MEDS: CLOPIDOGREL BISULFATE 75 MG TABLET PO SCH (09:23)
[2016-07-08] MEDS: LISINOPRIL 10 MG TABLET PO SCH (09:24)
[2016-07-08] MEDS: PREDNISONE 5 MG TABLET PO SCH (09:24)
[2016-07-08] MEDS: POTASSIUM CHLORIDE 10 MEQ TABLET.SA PO SCH ×2 (09:24→19:04)
[2016-07-08] MEDS: OMEGA-3 ACID ETHYL ESTERS 1 GM CAPSULE PO SCH (09:24)
[2016-07-08] MEDS: METFORMIN HCL 500 MG TABLET PO SCH ×3 (09:24→19:06)
[2016-07-08] MEDS: GLIPIZIDE 10 MG TABLET PO SCH ×3 (09:24→19:04)
[2016-07-08] MEDS: METOPROLOL SUCCINATE 25 MG TAB.SR.24H PO SCH (09:25)
[2016-07-08] MEDS: PREDNISONE 1 MG TABLET PO SCH (09:26)
[2016-07-08] MEDS ORDERED: TERAZOSIN PO SCH (10:00)
[2016-07-08] MEDS ORDERED: ACETAMINOPHEN 325 MG TABLET ONE (12:04)
[2016-07-08] MEDS: FOLIC ACID 1 MG TABLET PO SCH (12:07)
[2016-07-08] MEDS ORDERED: ACETAMINOPHEN 325 MG TABLET PO PRN (12:22)
--- NOTE | 2016-07-08 15:18 | PDOC CONSULTATION ---
Consultation Consult Date: 07/08/16 Attending physician:: PAM KIM Consult reason:: Iron deficiency anemia. patient required 4 units of PRBC transfusion. history of GERD. early satiety History of Present Illness Admission Date/PCP: 07/05/16 16:58 JOSEPH AKINS MD History of Present Illness: Patient was admitted by . Patient was admitted for iron deficiency anemia and weakness. He did require for unit blood transfusion. In talking to him he says that he's had a colonoscopy many years ago he cannot remember when. Patient states that he does have some gastroesophageal reflux disease and some early satiety. He denies any changes of bowel habits. He says he does not see any blood in the stools. He denies any family history of colorectal cancer. His states his appetite has been good this been no significant weight loss although he does feel full and he consumes food. He currently denies any chest pain or shortness of breath. GI consultation is requested to perform a GI evaluation for his iron deficiency anemia. Past Medical History Cardiac Medical History: Reports: Coronary Artery Disease - 2 stents in legs ', Hyperlipidema, Hypertension - meds x many yrs, Peripheral Vascular Disease, Other - TEMPORAL ARTERITIS Denies: DVT, Myocardial Infarction Pulmonary Medical History: Reports: Pneumonia Denies: Asthma, Bronchitis, Chronic Obstructive Pulmonary Disease (COPD) - lung collapsed 1983 ,surgery , Tuberculosis Neurological Medical History: Denies: Seizures Endocrine Medical History: Reports: Diabetes Mellitus Type 2 Renal/ Medical History: Reports: None GI Medical History: Reports: Hiatal Hernia Musculoskeltal Medical History: Reports: Arthritis - knees Skin Medical History: Reports: None Psychiatric Medical History: Reports: None Hematology: Denies: Anemia Past Surgical History Past Surgical History: Reports: Orthopedic Surgery - left knee surgery, Vascular Surgery - AOTOB[facility] BYPASS 2004, Other - COLONOSCOPY 5-6 YRS AGO, NEG. Denies: Pacemaker Social History Lives with: Spouse/Significant other Smoking Status: Former Smoker Frequency of Alcohol Use: None Hx Recreational Drug Use: No Hx Prescription Drug Abuse: No - Advance Directive Resuscitation Status: Full Code Family History Family History: CVA - MOTHER Parental Family History Reviewed: Yes Children Family History Reviewed: Unknown Sibling(s) Family History Reviewed.: Unknown Medication/Allergy Home Medications: Aspirin [Aspirin 81 mg Chewable Tablet] 81 mg PO 1600 10/13/11 Clopidogrel Bisulfate [Plavix 75 Mg Tablet] 75 mg PO DAILY 10/13/11 Docosahexanoic Acid/Epa [Fish Oil Softgel] 1 each PO DAILY 10/13/11 Glipizide 10 mg PO TID 10/13/11 Lisinopril/Hydrochlorothiazide [Zestoretic 20-25 Mg Tablet] 1 each PO DAILY 14/05 Metformin HCl [Glucophage] 1,000 mg PO TID 10/13/11 Metoprolol Succinate [Toprol-Xl 25 Mg Tab.Sr] 25 mg PO DAILY 10/13/11 Temazepam [Restoril] 30 mg PO QHS 10/13/11 Terazosin HCl [Hytrin] 2 mg PO QHS 10/13/11 Potassium Chloride [Klor-Con 10 Meq Tablet.sa] 10 meq PO BID 10/17/12 Atorvastatin Calcium [Lipitor 10 mg Tablet] 10 mg PO DAILY 02/11/16 Cinnamon Bark [Cinnamon Bark 500 mg Capsule] 1,000 mg PO DAILY 02/11/16 Folic Acid [Folic Acid] 1 mg PO DAILY 07/05/16 Omeprazole [Omeprazole] 20 mg PO DAILY 07/05/16 Prednisone [Prednisone] 1 mg PO DAILY 07/05/16 Prednisone [Prednisone] 5 mg PO DAILY 07/05/16 Allergies/Adverse Reactions: amoxicillin [Amoxicillin] Allergy (Mild, Verified 02/11/16 14:02) diarrhea,vomiting,SOB Review of Systems Constitutional: ABSENT: fever(s), headache(s), night sweats, weakness Eyes: ABSENT: visual disturbances Ears: ABSENT: hearing changes Cardiovascular: ABSENT: chest pain, dyspnea on exertion, orthropnea, palpitations Respiratory: ABSENT: dyspnea, hemoptysis Gastrointestinal: PRESENT: heartburn. ABSENT: coffee ground emesis, diarrhea, melena, nausea, vomiting Genitourinary: ABSENT: dysuria, hematuria Musculoskeletal: ABSENT: joint swelling Integumentary: ABSENT: lesions, pruritus Neurological: PRESENT: restless legs. ABSENT: focal weakness, paresthesias, tremor(s), vertigo Endocrine: ABSENT: polydipsia, polyphagia, polyuria Hematologic/Lymphatic: ABSENT: easy bruising Physical Exam Vital Signs: Temp Pulse Resp BP Pulse Ox 98.1 F 98 18 133/70 H 97 07/08/16 07:58 07/08/16 07:58 07/08/16 07:58 07/08/16 07:58 07/08/16 07:58 Intake & Output 07/07/16 07/08/16 07/09/16 06:59 06:59 06:59 Intake Total 3543 1825 1150 Output Total 1700 1100 Balance 5921 413 0273 Weight 91.1 kg 88.5 kg General appearance: PRESENT: no acute distress, well-developed, well-nourished Head exam: PRESENT: atraumatic, normocephalic Eye exam: PRESENT: EOMI, PERRLA. ABSENT: nystagmus, periorbital swelling Mouth exam: PRESENT: moist Throat exam: ABSENT: tonsillar exudate, tonsillogmegaly Neck exam: ABSENT: meningismus, tenderness, thyromegaly Respiratory exam: PRESENT: clear to auscultation aurora, symmetrical. ABSENT: tachypnea, wheezes Cardiovascular exam: PRESENT: RRR, +S1, +S2. ABSENT: gallop, rubs Gentrourinary exam: ABSENT: lesions, scrotal swelling Extremities exam: ABSENT: joint swelling Musculoskeletal exam: PRESENT: full ROM Neurological exam: PRESENT: oriented to time, oriented to situation, reflexes normal, CN II-XII grossly intact Psychiatric exam: PRESENT: appropriate affect Skin exam: PRESENT: normal color. ABSENT: mottled, pallor, petechiae, urticaria , vesicles Results Laboratory Results: 07/08/16 04:09 07/08/16 04:09 07/06/16 07/08/16 07/08/16 03:58 04:09 04:09 WBC 7.5 RBC 4.31 L Hgb 9.2 L Hct 28.6 L MCV 66 L MCH 21.3 L MCHC 32.1 RDW 25.7 H Plt Count 284 Seg Neutrophils % 62.7 Lymphocytes % 23.6 Monocytes % 11.1 Eosinophils % 2.1 Basophils % 0.5 Absolute Neutrophils 4.7 Absolute Lymphocytes 1.8 Absolute Monocytes 0.8 Absolute Eosinophils 0.2 Absolute Basophils 0.0 Sodium 143.1 Potassium 3.9 Chloride 106 Carbon Dioxide 24 Anion Gap 13 BUN 11 Creatinine 1.04 Est GFR ( Amer) > 60 Est GFR (Non-Af Amer) > 60 Glucose 95 Calcium 9.1 Transferrin 259 07/05/16 07/06/16 07/06/16 22:06 03:58 10:21 Troponin I 0.134 0.112 0.082 Impressions: Renal Ultrasound 07/06/16 00:00 IMPRESSION: UNREMARKABLE RENAL AND BLADDER ULTRASOUND. NO OBSTRUCTIVE UROPATHY. Sinuses CT 07/06/16 00:00 IMPRESSION: NO EVIDENCE OF ACUTE OR CHRONIC SINUSITIS. Assessment & Plan - Diagnosis (1) Anemia Qualifiers: Anemia type: unspecified type Qualified Code(s): D64.9 - Anemia, unspecified Plan: Patient has iron deficiency anemia and has required blood transfusion. He cannot remember when his last GI workup was done. He'll need to have both upper as well as lower evaluation. The risks, benefits and alternatives of the procedure including risks of bleeding, perforation requiring surgery I explained to the patient detail and informed consent is obtained. Further recommendations will follow. He could possibly have peptic ulcer disease to explain some of his symptoms. He'll need to be excluded for Helicobacter pylori. We'll try and get records from his all colonoscopy however it may be more than 10 years unless he seems to recall. - Time Time Spent: 50 to 70 Minutes
[2016-07-08] MEDS: ASPIRIN 81 MG TABLET, CHEWABLE PO SCH (15:41)
[2016-07-08] MEDS ORDERED: PEG 3350/NA SULF,BICARB,CL/KCL 4000 ML PO ONE (18:00)
--- NOTE | 2016-07-08 20:01 | PDOC PROGRESS REPORT ---
Subjective Progress Note for:: 07/08/16 Subjective:: Patient is scheduled for colonoscopy and EGD tomorrow Physical Exam Vital Signs: Temp Pulse Resp BP Pulse Ox 97.8 F 84 18 142/76 H 100 07/08/16 19:22 07/08/16 19:22 07/08/16 19:22 07/08/16 19:22 07/08/16 19:22 Intake & Output 07/07/16 07/08/16 07/09/16 06:59 06:59 06:59 Intake Total 3543 1825 1150 Output Total 1700 1100 Balance 6545 283 0928 Weight 91.1 kg 88.5 kg General appearance: PRESENT: no acute distress, well-developed, well-nourished Head exam: PRESENT: atraumatic, normocephalic Eye exam: PRESENT: conjunctiva pink, EOMI, PERRLA. ABSENT: scleral icterus Ear exam: PRESENT: normal external ear exam Mouth exam: PRESENT: moist, tongue midline Neck exam: PRESENT: full ROM Cardiovascular exam: PRESENT: RRR, +S1, +S2 Vascular exam: PRESENT: normal capillary refill GI/Abdominal exam: PRESENT: normal bowel sounds, soft Rectal exam: PRESENT: deferred Neurological exam: PRESENT: alert, awake, oriented to person, oriented to place , oriented to time, oriented to situation, CN II-XII grossly intact. ABSENT: motor sensory deficit Psychiatric exam: PRESENT: appropriate affect, normal mood. ABSENT: homicidal ideation, suicidal ideation Skin exam: PRESENT: dry, intact, warm. ABSENT: cyanosis, rash Results Laboratory Results: 07/08/16 04:09 07/08/16 04:09 07/06/16 07/08/16 07/08/16 03:58 04:09 04:09 WBC 7.5 RBC 4.31 L Hgb 9.2 L Hct 28.6 L MCV 66 L MCH 21.3 L MCHC 32.1 RDW 25.7 H Plt Count 284 Seg Neutrophils % 62.7 Lymphocytes % 23.6 Monocytes % 11.1 Eosinophils % 2.1 Basophils % 0.5 Absolute Neutrophils 4.7 Absolute Lymphocytes 1.8 Absolute Monocytes 0.8 Absolute Eosinophils 0.2 Absolute Basophils 0.0 Sodium 143.1 Potassium 3.9 Chloride 106 Carbon Dioxide 24 Anion Gap 13 BUN 11 Creatinine 1.04 Est GFR ( Amer) > 60 Est GFR (Non-Af Amer) > 60 Glucose 95 Calcium 9.1 Transferrin 259 07/05/16 07/06/16 07/06/16 22:06 03:58 10:21 Troponin I 0.134 0.112 0.082 Impressions: Renal Ultrasound 07/06/16 00:00 IMPRESSION: UNREMARKABLE RENAL AND BLADDER ULTRASOUND. NO OBSTRUCTIVE UROPATHY. Sinuses CT 07/06/16 00:00 IMPRESSION: NO EVIDENCE OF ACUTE OR CHRONIC SINUSITIS. Assessment & Plan - Diagnosis (1) Anemia Qualifiers: Anemia type: iron deficiency Iron deficiency anemia type: chronic blood loss Qualified Code(s): D50.0 - Iron deficiency anemia secondary to blood loss (chronic) Is this a current diagnosis for this admission?: Yes (2) Elevated troponin Is this a current diagnosis for this admission?: Yes (3) Temporal arteritis Is this a current diagnosis for this admission?: Yes (4) Diabetes mellitus type II, controlled Qualifiers: Diabetes mellitus complication status: with kidney complications Diabetes mellitus complication detail: with chronic kidney disease Diabetes mellitus nursing home insulin use: without nursing home use Chronic kidney disease stage: unspecified stage Qualified Code(s): E11.22 - Type 2 diabetes mellitus with diabetic chronic kidney disease; N18.1 - Chronic kidney disease, stage 1; Z79.4 - director long term care (current) use of insulin Is this a current diagnosis for this admission?: Yes (5) Hx of temporal arteritis Is this a current diagnosis for this admission?: Yes (6) Acute kidney injury Is this a current diagnosis for this admission?: Yes
[2016-07-08] MEDS: ATORVASTATIN CALCIUM 10 MG TABLET PO SCH (22:12)
[2016-07-08] MEDS: TEMAZEPAM 15 MG CAPSULE PO SCH (22:18)
[2016-07-09] MEDS ORDERED: PROMETHAZINE HCL INJ 25 MG/1 ML VIAL ONE (08:59)
[2016-07-09] MEDS ORDERED: NALOXONE HCL INJ/PF 0.4 MG/1 ML SDV ONE (08:59)
[2016-07-09] MEDS ORDERED: DIPHENHYDRAMINE HCL 50 MG/ML VIAL ONE (08:59)
[2016-07-09] MEDS ORDERED: ONDANSETRON HCL INJ/PF 4 MG/2 ML SDV ONE (08:59)
[2016-07-09] MEDS ORDERED: MIDAZOLAM 2 MG/2 ML INJ ONE (09:00)
[2016-07-09] MEDS ORDERED: FENTANYL CITRATE INJ/PF 100 MCG/2 ML AMPUL ONE (09:00)
[2016-07-09] MEDS ORDERED: FLUMAZENIL INJ 0.5 MG/5 ML VIAL IV ONE (09:00)
[2016-07-09] MEDS ORDERED: EPINEPHRINE INJ 1 MG/10 ML DISP.SYRIN ONE (09:01)
[2016-07-09] MEDS ORDERED: GLUCAGON,HUMAN RECOMB 1 MG INJ ONE (09:01)
[2016-07-09] MEDS: MIDAZOLAM 2 MG/2 ML INJ ONE ×2 (09:34→09:40)
--- NOTE | 2016-07-09 10:25 | Operative Report ---
Operative Report DATE OF SURGERY: 07/09/16 Operative Report: The risks, benefits and alternatives of the procedure including risks of bleeding, patient requiring surgery are explained to the patient in detail and informed consent is obtained. Patient is placed in a left, lateral decubital position then brought to the endoscopy suite. Conscious sedation medications are provided. Timeout is called. A rectal examination was done which did not reveal any masses, tears or fissures. An Olympus videoscope was inserted into the patient's rectum. The scope was then carefully advanced all the way to the cecum. The cecum was identified by the usual anatomical landmarks of the ileocecal valve as well as the appendiceal office. Photodocumentation is obtained. Prep is good. Of note the patient has a very spastic colon. The scope was then sequentially pulled back via the various segments of the colon including the ascending colon, hepatic flexure, transverse colon, splenic flexure, descending colon and finally into the rectosigmoid colon. Mucosa does otherwise appeared to be normal. Retroflexion maneuver is performed. Following this the patient's stretcher was turned around and an EGD performed.The risks benefits and alternatives of the procedure explained to the patient in detail and informed consent is obtained that GIF Olympus video scope was inserted into the patient's mouth and hypopharynx the esophagus is identified intubated and insufflated the scope was then advanced through the esophagus stomach and duodenum retroflexion maneuver is done the esophagus stomach and first and second portions of the duodenum examined PREOPERATIVE DIAGNOSIS: Iron deficiency anemia POSTOPERATIVE DIAGNOSIS: Sessile polyp in the sigmoid colon status post biopsy. Occasional diverticulosis. Internal hemorrhoids. Gastritis. No acute bleeding noted OPERATION: Colonoscopy with biopsy. EGD with biopsy SURGEON: PAM KIM ANESTHESIA: Moderate Sedation - 6 mg of Versed, 100 g of fentanyl. TISSUE REMOVED OR ALTERED: Gastric specimen rule out Helicobacter pylori. polyp rule out adenomatous polyp COMPLICATIONS: None. ESTIMATED BLOOD LOSS: none. INTRAOPERATIVE FINDINGS: Gastritis and mild duodenitis. Mild diverticulosis. Internal hemorrhoids. Colonoscopy completed to the cecum PROCEDURE: Patient tolerated the procedure well. No immediate postprocedure complications are noted. Patient was sent back to his room in good condition. Resume previous diet Resume previous activity level Follow-up on biopsy Outpatient follow-up will be adequate Patient can be discharged if no other medical issues We'll call the patient once biopsies are available 2-3 week follow-up outpatient
[2016-07-09] MEDS: PREDNISONE 1 MG TABLET PO SCH (11:01)
[2016-07-09] MEDS: PREDNISONE 5 MG TABLET PO SCH (11:02)
[2016-07-09] MEDS: LISINOPRIL 10 MG TABLET PO SCH (11:03)
[2016-07-09] MEDS: POTASSIUM CHLORIDE 10 MEQ TABLET.SA PO SCH (11:03)
[2016-07-09] MEDS: METFORMIN HCL 500 MG TABLET PO SCH ×2 (11:04→15:36)
[2016-07-09] MEDS: LANSOPRAZOLE 15 MG TAB.RAP.DR PO SCH (11:04)
[2016-07-09] MEDS: GLIPIZIDE 10 MG TABLET PO SCH ×2 (11:04→15:36)
[2016-07-09] MEDS: HYDROCHLOROTHIAZIDE 25 MG TABLET PO SCH (11:05)
[2016-07-09] MEDS: CLOPIDOGREL BISULFATE 75 MG TABLET PO SCH (11:05)
[2016-07-09] MEDS: METOPROLOL SUCCINATE 25 MG TAB.SR.24H PO SCH (11:05)
[2016-07-09] MEDS: OMEGA-3 ACID ETHYL ESTERS 1 GM CAPSULE PO SCH (11:05)
[2016-07-09] MEDS: FOLIC ACID 1 MG TABLET PO SCH (12:26)
--- NOTE | 2016-07-09 15:04 | PDOC DISCHARGE SUMMARY ---
General - Admit/Disc Date/PCP Admission Date/Primary Care Provider: 07/05/16 16:58 PRINCESS AKINS MD Discharge Date: 07/09/16 - Discharge Diagnosis (1) Anemia Is this a current diagnosis for this admission?: Yes (2) Elevated troponin Is this a current diagnosis for this admission?: Yes (3) Temporal arteritis Is this a current diagnosis for this admission?: Yes (4) Diabetes mellitus type II, controlled Is this a current diagnosis for this admission?: Yes (5) Hx of temporal arteritis Is this a current diagnosis for this admission?: Yes (6) Acute kidney injury Is this a current diagnosis for this admission?: YesSummary: Resolved - Additional Information Resuscitation Status: Full Code Discharge Activity: Activity As Tolerated Home Medications: Aspirin [Aspirin 81 mg Chewable Tablet] 81 mg PO 1600 10/13/11 Clopidogrel Bisulfate [Plavix 75 mg Tablet] 75 mg PO DAILY 10/13/11 Docosahexanoic Acid/Epa [Fish Oil Softgel] 1 each PO DAILY 10/13/11 Glipizide 10 mg PO TID 10/13/11 Lisinopril/Hydrochlorothiazide [Zestoretic 20-25 mg Tablet] 1 each PO DAILY 14/05 Metformin HCl [Glucophage 1000 mg Tablet] 1,000 mg PO TID 10/13/11 Metoprolol Succinate [Toprol Xl 25 mg Tab.sr] 25 mg PO DAILY 10/13/11 Temazepam [Restoril] 30 mg PO QHS 10/13/11 Terazosin HCl [Hytrin] 2 mg PO QHS 10/13/11 Potassium Chloride [Klor-Con 10 Meq Tablet.sa] 10 meq PO BID 10/17/12 Atorvastatin Calcium [Lipitor 10 mg Tablet] 10 mg PO DAILY 02/11/16 Cinnamon Bark [Cinnamon Bark 500 mg Capsule] 1,000 mg PO DAILY 02/11/16 Folic Acid 1 mg PO DAILY 07/05/16 Omeprazole 20 mg PO DAILY 07/05/16 Prednisone 1 mg PO DAILY 07/05/16 Prednisone 5 mg PO DAILY 07/05/16 Chlorpheniramine Maleate [Allergy Relief] 1 tab PO Q6 #120 pkg 07/09/16 History of Present Illness History of Present Illness: JOSE GAMEZ is a 65 year old male with history of peripheral vascular disease , status post aorto- bifemoral bypass graft many years ago, he was in the waiting room of Dr. Akins's office when he had episode of a near syncope spell. He was then transferred from the urgent care to the emergency room for evaluation. In the emergency room he was evaluated he was found to have hemoglobin of 6.6 with very low MCV, subsequentl blood work revealed severe iron deficiency with low ferritin, serum iron. Patient denies any passage of black tarry stool or any hematochezia, he had colonoscopy about 5 years ago, but he admitted to having episodic epistaxis almost on a regular basis the last couple of weeks. He believes that could have been the reason for the anemia,in the emergency room cardiac enzymes drawn and it was elevated at 0.1. He denied any chest pain or any chest symptoms, he has risk factors for ischemic heart disease, he has diabetes mellitus, peripheral vascular disease. 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 He presented with near syncope, for details check [facility]. He was transfused with 4 units of packed red blood cells and the posttransfusion hemoglobin was 9. He was seen by GI and he underwent EGD and colonoscopy that was no active bleeding. He was found to have a polyp in the sigmoid colon, diverticulosis and internal hemorrhoids. On admission he was found to have slightly elevated troponin, but he had no chest symptoms and no EKG changes. A 2-D echo was done , 2-D echo showed preserved ejection fraction of the left ventricle. there is aea of hypokinesis of the left ventricle. There is no significant valvular disease. She also had prerenal acute kidney injury, ultrasound of the kidney was done and it was normal, the acute kidney injury was corrected with IV hydration, suggesting a prerenal cause.Discharge him today is advised to see Dr. Princess Akins the office and arrange for outpatient stress test Physical Exam Vital Signs: Temp Pulse Resp BP Pulse Ox 97.8 F 85 16 124/67 95 07/09/16 09:15 07/09/16 10:25 07/09/16 10:25 07/09/16 10:25 07/09/16 10:25 Intake & Output 07/08/16 07/09/16 07/10/16 06:59 06:59 06:59 Intake Total 1825 1150 400 Output Total 1100 8 Balance 725 1142 400 Weight 88.5 kg 85.9 kg General appearance: PRESENT: no acute distress, well-developed, well-nourished Head exam: PRESENT: atraumatic, normocephalic Eye exam: PRESENT: conjunctiva pink, EOMI, PERRLA Ear exam: PRESENT: normal external ear exam Mouth exam: PRESENT: moist, tongue midline Neck exam: PRESENT: full ROM Respiratory exam: PRESENT: clear to auscultation aurora Cardiovascular exam: PRESENT: RRR, +S1, +S2 Pulses: PRESENT: normal dorsalis pedis pul, +2 pedal pulses bilateral Vascular exam: PRESENT: normal capillary refill GI/Abdominal exam: PRESENT: normal bowel sounds, soft Rectal exam: PRESENT: deferred Neurological exam: PRESENT: alert, awake, oriented to person, oriented to place , oriented to time, oriented to situation, CN II-XII grossly intact Psychiatric exam: PRESENT: appropriate affect, normal mood Skin exam: PRESENT: dry, intact, warm Results Laboratory Results: 07/08/16 04:09 07/08/16 04:09 07/05/16 07/06/16 07/06/16 22:06 03:58 10:21 Troponin I 0.134 0.112 0.082 Impressions: Renal Ultrasound 07/06/16 00:00 IMPRESSION: UNREMARKABLE RENAL AND BLADDER ULTRASOUND. NO OBSTRUCTIVE UROPATHY. Sinuses CT 07/06/16 00:00 IMPRESSION: NO EVIDENCE OF ACUTE OR CHRONIC SINUSITIS.
[2016-07-09] MEDS: ASPIRIN 81 MG TABLET, CHEWABLE PO SCH (15:36)
[2016-07-09] MEDS ORDERED: LORATADINE 10 MG TABLET PO ONE (16:00)
[2016-07-09 16:15] VITALS: BP 145/81
== END 2016-07-09 16:35 | disposition home or self-care (01) | DRG 812 ==
LOC: ER 12:36 → EH 16:34 → UNDOADMIN 16:34 → EH 16:58 → 5 07-06 00:13
PROVIDERS: ADMIT Internal Medicine; ATTEND Internal Medicine
PROC: 30233N1 Transfusion of Nonautologous Red Blood Cells into Peripheral Vein, Percutaneous Approach (ICD-10-PCS; principal; 2016-07-05)
PROC: 0DB68ZX Excision of Stomach, Via Natural or Artificial Opening Endoscopic, Diagnostic (ICD-10-PCS; 2016-07-09)
PROC: 0DBN8ZX Excision of Sigmoid Colon, Via Natural or Artificial Opening Endoscopic, Diagnostic (ICD-10-PCS; 2016-07-09 12:30)
DX: D50.0 Iron deficiency anemia secondary to blood loss (chronic) (principal); N17.9 Acute kidney failure, unspecified; D12.5 Benign neoplasm of sigmoid colon; K29.70 Gastritis, unspecified, without bleeding; R42 Dizziness and giddiness; I12.9 Hypertensive chronic kidney disease with stage 1 through stage 4 chronic kidney disease, or unspecified chronic kidney disease; E11.22 Type 2 diabetes mellitus with diabetic chronic kidney disease; N18.1 Chronic kidney disease, stage 1; I25.10 Atherosclerotic heart disease of native coronary artery without angina pectoris; E78.5 Hyperlipidemia, unspecified; I73.9 Peripheral vascular disease, unspecified; K21.9 Gastro-esophageal reflux disease without esophagitis; K64.8 Other hemorrhoids; R79.89 Other specified abnormal findings of blood chemistry; M31.6 Other giant cell arteritis; Z87.891 Personal history of nicotine dependence; Z95.5 Presence of coronary angioplasty implant and graft; Z79.01 Long term (current) use of anticoagulants; Z79.82 Long term (current) use of aspirin; Z79.84 Long term (current) use of oral hypoglycemic drugs; Z88.1 Allergy status to other antibiotic agents
CPT/HCPCS: 36415; 36430; 43239; 45380; 70486; 76770; 80048; 80053; 81001; 82150; 82272; 82378; 82550; 82553; 82607; 82728; 82746; 82962; 83036; 83540; 83550; 83690; 84100; 84466; 84484; 85025; 85045; 85610; 85730; 86850; 86900; 86901; 86920; 88305; 88342; 93005; 93010; 93306; 99285; J0171; J1200; J1610; J2250; J2310; J2405; J2550; J3010; J3490; J7030; J7512; P9016

== ENCOUNTER 2016-08-30 07:18 | Emergency (ER) | payer MEDICARE, OTHER ==
[2016-08-30] MEDS ORDERED: OXYMETAZOLINE HCL 0.05% NASAL SPRAY 15 ML BOTTLE NASL ONE (07:48)
[2016-08-30] MEDS ORDERED: THROMBIN (BOVINE) 5000 UNIT EPITAXIS KIT TP ONE (07:50)
--- NOTE | 2016-08-30 08:16 | ER Document Report ---
ED ENT - General Chief Complaint: Nose Bleed Stated Complaint: NOSE PAIN Mode of Arrival: Ambulatory Information source: Patient Notes: Patient reports waking up with a bloody nose this morning. Patient has had multiple episodes of epistaxis off and on over the past 2-3 years. Patient reports having a cauterization performed last month. Patient denies any lightheadedness or dizziness. Patient denies any nose trauma. Patient does report taking aspirin and Plavix at home. TRAVEL OUTSIDE OF THE [place] IN LAST 30 DAYS: No - HPI Patient complains to provider of: Nose problem Onset: Just prior to arrival Onset/Duration: Sudden Pain Level: Denies Context: denies: Injury Associated symptoms: Nose bleed Similar symptoms previously: Yes Recently seen / treated by doctor: No - Related Data Allergies/Adverse Reactions: amoxicillin [Amoxicillin] Allergy (Mild, Verified 02/11/16 14:02) diarrhea,vomiting,SOB Past Medical History - General Information source: Patient - Social History Smoking Status: Never Smoker Lives with: Spouse/Significant other Family History: CVA - MOTHER Patient has suicidal ideation: No Patient has homicidal ideation: No - Past Medical History Cardiac Medical History: Reports: Hx Coronary Artery Disease - 2 stents in legs ', Hx Hypercholesterolemia, Hx Hypertension - meds x many yrs, Hx Peripheral Vascular Disease Denies: Hx DVT, Hx Heart Attack Pulmonary Medical History: Reports: Hx Pneumonia Denies: Hx Asthma, Hx Bronchitis, Hx COPD - lung collapsed 1983 ,surgery , Hx Tuberculosis Neurological Medical History: Denies: Hx Cerebrovascular Accident, Hx Seizures Endocrine Medical History: Reports: Hx Diabetes Mellitus Type 2 Renal/ Medical History: Denies: Hx Peritoneal Dialysis GI Medical History: Reports: Hx Hiatal Hernia Musculoskeltal Medical History: Reports Hx Arthritis - knees Past Surgical History: Reports: Hx Cardiac Surgery, Hx Orthopedic Surgery - left knee surgery, Hx Vascular Surgery - [facility] 2004, Other - COLONOSCOPY 5-6 YRS AGO, NEG.. Denies: Hx Pacemaker - Immunizations Hx Diphtheria, Pertussis, Tetanus Vaccination: No Hx Pneumococcal Vaccination: 10/15/11 Review of Systems - Review of Systems Constitutional: No symptoms reported. denies: Fever EENT: Other - Epistaxis Cardiovascular: No symptoms reported. denies: Chest pain, Syncope, Dizziness, Lightheaded Respiratory: No symptoms reported. denies: Cough, Short of breath Gastrointestinal: Vomiting Genitourinary: No symptoms reported Male Genitourinary: No symptoms reported Musculoskeletal: No symptoms reported Skin: No symptoms reported Hematologic/Lymphatic: No symptoms reported. denies: Easy bruising Neurological/Psychological: No symptoms reported Physical Exam - Vital signs Vitals: Pulse Resp BP Pulse Ox 100 16 141/77 H 96 08/30/16 07:22 08/30/16 07:22 08/30/16 07:22 08/30/16 07:22 - General General appearance: Appears well, Alert In distress: None - HEENT Head: Normocephalic Eyes: Normal Nasal: Epistaxis. No: Septal hematoma Mouth/Lips: Normal Mucous membranes: Normal Pharynx: Normal Neck: Normal, Supple. No: Lymphadenopathy - Respiratory Respiratory status: No respiratory distress Chest status: Nontender Breath sounds: Normal. No: Rales, Rhonchi, Stridor, Wheezing Chest palpation: Normal - Cardiovascular Rhythm: Regular Heart sounds: S1 appreciated, S2 appreciated Murmur: No - Back Back: Normal - Extremities General upper extremity: Normal inspection, Normal strength General lower extremity: Normal inspection, Normal strength - Neurological Neuro grossly intact: Yes Cognition: Normal [place]aria Coma Scale Eye Opening: Spontaneous [place]aria Coma Scale Verbal: Oriented [place] Coma Scale Motor: Obeys Commands [place] Coma Scale Total: 15 - Psychological Associated symptoms: Normal affect, Normal mood - Skin Skin Temperature: Warm Skin Moisture: Dry Skin Color: Normal Course - Re-evaluation Re-evalutation: 08/30/16 08:14 Dr. Ring to bedside for examination and treatment. Afrin applied intranasally per Dr. Ring and nose packed with cotton swabs. Patient without any obvious active bleeding at this time 08/30/16 09:11 no bleeding noted with packing in place. Dr Ring to bedside, packing removed and small area noted to septum that continues to bleed. Packing replaced per Dr Ring 08/30/16 09:47 Patient without any active bleeding after packing was removed per Dr. Ring. Dr. Ring advises outpatient follow-up with ENT and giving patient return precautions. Patient given cotton balls as well as Afrin nasal spray with instructions on how to use. Dr. Ring advises having patient discontinue his Plavix as well as aspirin and follow-up with his primary care provider for further instructions regarding his daily aspirin use. - Vital Signs Vital signs: Temp Pulse Resp BP Pulse Ox 90 18 128/72 H 96 08/30/16 10:03 08/30/16 10:03 08/30/16 10:03 08/30/16 10:03 - Laboratory Result Diagrams: 08/30/16 08:15 Laboratory results interpreted by me: 08/30/16 08:15 Hgb 10.2 L Hct 33.0 L MCV 71 L MCH 22.0 L MCHC 30.9 L RDW 27.2 H Labs- Entire Visit 08/30/16 08/30/16 08:15 08:15 WBC 9.2 RBC 4.65 Hgb 10.2 L Hct 33.0 L MCV 71 L MCH 22.0 L MCHC 30.9 L RDW 27.2 H Plt Count 436 Seg Neutrophils % 67.2 Lymphocytes % 20.1 Monocytes % 11.0 Eosinophils % 1.0 Basophils % 0.7 Absolute Neutrophils 6.2 Absolute Lymphocytes 1.9 Absolute Monocytes 1.0 Absolute Eosinophils 0.1 Absolute Basophils 0.1 Platelet Comment ADEQUATE Hypochromasia 2+ Poikilocytosis 1+ Anisocytosis 2+ Microcytosis 2+ Tear Drop Cells SLIGHT Ovalocytes SLIGHT PT 12.4 INR 0.90 APTT 27.8 Reviewed patient's previous CBC results 08/30/16 12:57 Discharge - Discharge Clinical Impression: Epistaxis Condition: Stable Disposition: HOME, SELF-CARE Instructions: Nosebleed Instructions ([facility]) Additional Instructions: Return immediately for any new or worsening symptoms Followup with your primary care provider, call tomorrow to make a followup appointment Stop taking your aspirin and Plavix. Follow-up with your primary for recheck, call Thursday for an appointment Follow-up with your ear nose and throat doctor, call Thursday for an appointment time. Referrals: JOSEPH AKINS MD [Primary Care Provider] - 09/01/16
[2016-08-30 08:33] LABS: ABSOLUTE BASOPHILS # (AUTO) 0.1 10^3/uL (0.0-0.2); ABSOLUTE EOSINOPHILS # (AUTO) 0.1 10^3/uL (0.0-0.6); ABSOLUTE LYMPHOCYTES (AUTO) 1.9 10^3/uL (0.5-4.7); ABSOLUTE NEUT (AUTO) 6.2 10^3/uL (1.7-8.2); BASOPHILS % (AUTO) 0.7 % (0-2); HEMOGLOBIN 10.2 g/dL (13.5-17.0); HGB HCT DIFFERENCE -2.4; LYMPHOCYTES % (AUTO) 20.1 % (13-45); MEAN CORPUSCULAR HGB CONC 30.9 g/dL (32.0-36.0); MEAN CORPUSCULAR VOLUME 71 fl (80-97); RED BLOOD COUNT 4.65 10^6/uL (4.35-5.55); RED CELL DISTRIBUTION WIDTH 27.2 % (11.5-14.0); SEGMENTED NEUTROPHILS % (AUTO) 67.2 % (42-78); WHITE BLOOD COUNT 9.2 10^3/uL (4.0-10.5)
[2016-08-30 08:46] LABS: PROTHROMBIN TIME 12.4 SEC (11.4-15.4)
[2016-08-30 08:47] LABS: PARTIAL THROMBOPLASTIN TIME 27.8 SEC (23.5-35.8)
[2016-08-30 08:53] LABS: ANISOCYTOSIS 2+; HYPOCHROMASIA 2+; MICROCYTOSIS 2+; OVALOCYTES SLIGHT; POIKILOCYTOSIS 1+; TEAR DROP CELLS SLIGHT
[2016-08-30 10:04] VITALS: BP 128/72
--- NOTE | 2016-08-30 12:06 | ER Document Report ---
Doctor's Note Notes: 08/30/16 12:01 I was the consulted provider on the patient's case. I did the procedure to control the epistaxis. PROCEDURE: Each nostril was sprayed with Afrin nose spray tip of to provide a stream while the patient sniffed. He was able to sniff and expel the clots. Afrin soaked cotton balls were then inserted into each nostril. After about an hour the cotton balls were removed and there was no active bleeding. There was noted a rather large area on the right nasal septum inferiorly and posteriorly which was the bleeding source. The patient confirms this is the area that the ENT doctor cauterized recently. The patient complained of severe pain with the cotton balls. He was absolutely unwilling to try nasal packing or inflatable balloons if it could be avoided. Bacitracin ointment was placed in each nostril. The patient and family were taught how to do the procedure using the Afrin being sprayed is a stream into the nostril and how to properly pinch it off at the nasal bone. Also shown how to soak the cotton ball with Afrin and placed in 2012 by mouth shape and insert with a rotating motion into the nostril if needed. They are comfortable going home and doing this if necessary. He will stop the aspirin and Plavix for the next few days(he reports his doctor was planning to stop his Plavix in the near future, as he has been on it since 1997 for stents in the lower extremities). He denies a history of coronary artery disease.
== END 2016-08-30 10:03 | disposition home or self-care (01) ==
LOC: ER 07:18
PROC: 2Y41X5Z Packing of Nasal Region using Packing Material (ICD-10-PCS; principal; 2016-08-30)
DX: R04.0 Epistaxis (principal); I10 Essential (primary) hypertension; I25.10 Atherosclerotic heart disease of native coronary artery without angina pectoris; E11.9 Type 2 diabetes mellitus without complications; Z98.890 Other specified postprocedural states; Z79.02 Long term (current) use of antithrombotics/antiplatelets; Z79.82 Long term (current) use of aspirin; Z88.0 Allergy status to penicillin
CPT/HCPCS: 99283; 36415; 85025; 85610; 85730; 30901; J3490

== ENCOUNTER 2018-01-22 16:53 | Emergency (ER) | payer MEDICARE ==
[2018-01-22] MEDS ORDERED: HYDROCODONE/ACETAMINOPHEN 5-325 MG TABLET PO ONE (17:16)
--- NOTE | 2018-01-22 17:18 | ER Document Report ---
HPI - HPI Patient complains to provider of: Shoulder injury Onset: Just prior to arrival Onset/Duration: Sudden Quality of pain: Sharp Pain Level: 5 Context: Patient states he was outside working and tripped falling against an air conditioning unit. Patient complains of left shoulder and upper arm pain. Patient denies any head injury. Patient denies any loss of consciousness nausea or vomiting. Associated Symptoms: Other - Shoulder and arm pain Exacerbated by: Movement Relieved by: Denies Similar symptoms previously: No Recently seen / treated by doctor: No - ROS ROS below otherwise negative: Yes Systems Reviewed and Negative: Yes All other systems reviewed and negative - NEURO Neurology: DENIES: Headache, Weakness - CARDIOVASCULAR Cardiovascular: DENIES: Chest pain - RESPIRATORY Respiratory: DENIES: Coughing - GASTROINTESTINAL Gastrointestinal: DENIES: Nausea, Patient vomiting - REPRODUCTIVE Reproductive: DENIES: : - MUSCULOSKELETAL Musculoskeletal: REPORTS: Extremity pain - DERM Skin Color: Normal Skin Problems: None Past Medical History - General Information source: Patient - Social History Smoking Status: Never Smoker Frequency of alcohol use: None Drug Abuse: None Occupation: Retired Lives with: Spouse/Significant other Family History: Reviewed & Not Pertinent, CVA - MOTHER - Past Medical History Cardiac Medical History: Reports: Hx Coronary Artery Disease - 2 stents in legs ', Hx Hypercholesterolemia, Hx Hypertension - meds x many yrs, Hx Peripheral Vascular Disease Denies: Hx DVT, Hx Heart Attack Pulmonary Medical History: Reports: Hx Pneumonia Denies: Hx Asthma, Hx Bronchitis, Hx COPD - lung collapsed 1983 ,surgery 84, Hx Tuberculosis Neurological Medical History: Denies: Hx Cerebrovascular Accident, Hx Seizures Endocrine Medical History: Reports: Hx Diabetes Mellitus Type 2 Renal/ Medical History: Denies: Hx Peritoneal Dialysis GI Medical History: Reports: Hx Hiatal Hernia Musculoskeletal Medical History: Reports Hx Arthritis - knees Past Surgical History: Reports: Hx Cardiac Surgery, Hx Orthopedic Surgery - left knee surgery, Hx Vascular Surgery - [facility] 2004, Other - COLONOSCOPY 5-6 YRS AGO, NEG.. Denies: Hx Pacemaker - Immunizations Hx Diphtheria, Pertussis, Tetanus Vaccination: No Hx Pneumococcal Vaccination: 10/15/11 Vertical Provider Document - CONSTITUTIONAL Agree With Documented VS: Yes Exam Limitations: No Limitations General Appearance: WD/WN, No Apparent Distress - INFECTION CONTROL TRAVEL OUTSIDE OF THE [place] IN LAST 30 DAYS: No - HEENT HEENT: Atraumatic, Normocephalic - NECK Neck: Normal Inspection, Supple - RESPIRATORY Respiratory: Breath Sounds Normal, No Respiratory Distress - CARDIOVASCULAR Cardiovascular: Regular Rate, Regular Rhythm Pulses: Normal: Radial - BACK Back: Abnormal Inspection - Left trapezius muscle tenderness - MUSCULOSKELETAL/EXTREMETIES Musculoskeletal/Extremeties: Tender - Left shoulder joint tenderness worse with range of motion. Patient unable to abduct and extend due to pain. Notes: Patient with upper extremity tenderness along proximal two thirds left humerus - NEURO Level of Consciousness: Awake, Alert, Appropriate Motor/Sensory: No Motor Deficit - DERM Integumentary: Warm, Dry, No Rash Course - Vital Signs Vital signs: Temp Pulse Resp BP Pulse Ox 98.7 F 78 18 148/104 H 97 01/22/18 17:02 01/22/18 17:02 01/22/18 17:02 01/22/18 17:02 01/22/18 17:02 - Diagnostic Test Radiology reviewed: Image reviewed, Reports reviewed Procedures - Immobilization Left Arm Pre-Proc Neuro Vasc Exam: Normal Immobilizer type: Sling Performed by: PCT Post-Proc Neuro Vasc Exam: Normal Alignment checked and good: Yes Discharge - Discharge Clinical Impression: Fall Qualifiers: Encounter type: initial encounter Qualified Code(s): W19.XXXA - Unspecified fall, initial encounter Fracture of humeral head, left, closed Qualifiers: Encounter type: initial encounter Qualified Code(s): S42.292A - Other displaced fracture of upper end of left humerus, initial encounter for closed fracture Condition: Stable Disposition: HOME, SELF-CARE Instructions: Oral Narcotic Medication ([facility]), Fracture Proximal Humerus, Sling as Treatment ([facility]) Additional Instructions: Return immediately for any new or worsening symptoms Followup with your primary care provider, call tomorrow to make a followup appointment Follow up with orthopedics for further evaluation, call Thursday for an appointment time. Prescriptions: Hydrocodone/Acetaminophen [[place] 5-325 Tablet] 1 each PO Q6 PRN #15 tablet PRN Reason: Referrals: JOSEPH AKINS MD [Primary Care Provider] - Follow up as needed [facility] [Provider Group] - 01/25/18
--- NOTE | 2018-01-22 18:05 | RADIOLOGY REPORT (SQ) ---
EXAM DESCRIPTION: SHOULDER LEFT 2 OR MORE VIEWS COMPLETED DATE/TIME: 01/22/2018 5:46 pm REASON FOR STUDY: fall, left shoulder/LUE pain COMPARISON: None. NUMBER OF VIEWS: Two views. TECHNIQUE: Frontal and lateral images acquired of the left shoulder. LIMITATIONS: None. FINDINGS: MINERALIZATION: Normal. BONES: Nondisplaced fracture of the humeral head and neck. No dislocation. JOINTS: No dislocation. VISUALIZED LUNGS AND RIBS: No pneumothorax. No rib fracture. SOFT TISSUES: No radiopaque foreign body. OTHER: No other significant finding. IMPRESSION: Proximal humeral fracture. No dislocation. TECHNICAL DOCUMENTATION: JOB ID: [id number] [employer]- All Rights Reserved Reading location - IP/workstation name: [email or web address]
--- NOTE | 2018-01-22 18:06 | RADIOLOGY REPORT (SQ) ---
EXAM DESCRIPTION: HUMERUS LEFT COMPLETED DATE/TIME: 01/22/2018 5:46 pm REASON FOR STUDY: fall, left shoulder/LUE pain COMPARISON: None. NUMBER OF VIEWS: Two views. TECHNIQUE: Two radiographic images were acquired of the left humerus to include elbow and shoulder i n at least one projection. LIMITATIONS: None. FINDINGS: MINERALIZATION: Normal. BONES: Comminuted fracture of the humeral head and neck. Remainder of the humerus is intact. SOFT TISSUES: No obvious swelling or foreign body. OTHER: No other significant finding. IMPRESSION: COMMINUTED FRACTURE OF THE HUMERAL HEAD AND NECK. REMAINDER OF THE HUMERUS IS INTACT. TECHNICAL DOCUMENTATION: JOB ID: [id number] [employer]- All Rights Reserved Reading location - IP/workstation name: [email or web address]
[2018-01-22 18:37] VITALS: BP 129/85
== END 2018-01-22 18:38 | disposition home or self-care (01) ==
LOC: ER 16:53
DX: S42.202A Unspecified fracture of upper end of left humerus, initial encounter for closed fracture (principal); W19.XXXA Unspecified fall, initial encounter; W22.09XA Striking against other stationary object, initial encounter; I25.10 Atherosclerotic heart disease of native coronary artery without angina pectoris; I10 Essential (primary) hypertension; J44.9 Chronic obstructive pulmonary disease, unspecified
CPT/HCPCS: 99283; 73060; 73030; A9270; L3650

== ENCOUNTER → 2018-04-16 | Outpatient (CLI) | payer MEDICARE, OTHER ==
--- NOTE | 2018-04-16 17:03 | RADIOLOGY REPORT (SQ) ---
EXAM DESCRIPTION: MRI LT UPPER JOINT WITHOUT COMPLETED DATE/TIME: 04/16/2018 4:45 pm REASON FOR STUDY: PAIN IN LEFT SHOULDER M25.512 PAIN IN LEFT SHOULDER COMPARISON: Plain radiographs TECHNIQUE: Left shoulder images acquired and stored on PACS. Multiplanar imaging to include fat sens itive sequences such as T1, water sensitive sequences such as FST2/STIR, cartilage sensitive sequence s such as FSPD/gradient-echo sequences. LIMITATIONS: None. FINDINGS: BONE MARROW AND CORTEX: Extensive patchy marrow edema of the proximal humerus related to u nderlying fracture. 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 No generalized marrow replacement. JOINT OR BURSAL EFFUSION: No significant joint or bursal fluid. No suggestion of loose bodies. GLENO-HUMERAL ARTICULATION: Normal articulation. No subluxation. No cystic change. No osteophytes or cartilage loss. ACROMION AND AC JOINT: Type 2 acromion. AC joint arthropathy. Distal acromial spur. ROTATOR CUFF AND INTERVAL: Tendinopathy of the supraspinatus. No partial or full-thickness tear. No cuff muscle atrophy. No rotator interval tear. No rotator interval thickening to suggest adhesive capsulitis. LABRUM AND BICEPS LABRAL COMPLEX: No definitive labral tear. Biceps tendon is very poorly seen and likely torn proximally with retraction. REMAINDER OF LABRUM AND IGHL : No gross tear or paralabral cyst formation. Labral evaluation is less than optimal without joint distention. No thickening of IGHL to suggest adhesive capsulitis. PERIARTICULAR AND ADJACENT SOFT TISSUES: No masses or abnormal nodes. OTHER: No other significant finding. IMPRESSION: Healing nondisplaced fracture of the proximal humerus. 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 Tendinopathy of the supraspinatus without full-thickness tear. Suspect biceps tendon tear proximally with retraction. TECHNICAL DOCUMENTATION: JOB ID: [id number] [employer]- All Rights Reserved Reading location - IP/workstation name: [email or web address]
== END ==
LOC: RAD 16:02
PROVIDERS: ATTEND Physician Assistant
DX: M25.512 Pain in left shoulder (principal); Z87.81 Personal history of (healed) traumatic fracture

== ENCOUNTER → 2018-09-10 | Outpatient (CLI) | payer MEDICARE, OTHER ==
--- NOTE | 2018-09-10 09:15 | RADIOLOGY REPORT (SQ) ---
EXAM DESCRIPTION: MRI LT UPPER JOINT WITHOUT COMPLETED DATE/TIME: 09/10/2018 7:55 am REASON FOR STUDY: PAIN IN LEFT SHOULDER (M25.512) M25.512 PAIN IN LEFT SHOULDER COMPARISON: 2018. TECHNIQUE: Left shoulder images acquired and stored on PACS. Multiplanar imaging to include fat sens itive sequences such as T1, water sensitive sequences such as FST2/STIR, cartilage sensitive sequence s such as FSPD/gradient-echo sequences. LIMITATIONS: None. FINDINGS: BONE MARROW AND CORTEX: Improved patchy marrow edema related to previous fracture. Mild d eformity in the humeral head now largely looks like healed fracture. JOINT OR BURSAL EFFUSION: No significant joint or bursal fluid. No suggestion of loose bodies. GLENO-HUMERAL ARTICULATION: Normal articulation. No subluxation. No cystic change. No osteophytes or cartilage loss. ACROMION AND AC JOINT: Mild -moderate AC overgrowth. Secondary to acromial morphology and humeral he ad fracture deformity with superior anterior spurring, there is pronounced focal subacromial narrowin g with probable partial thickness cuff tear through this region. Tendinosis in the posterior cuff. Subscapularis looks grossly intact. Mild muscular atrophy. ROTATOR CUFF AND INTERVAL: As above. LABRUM AND BICEPS LABRAL COMPLEX: Blunted appearance of the superior labrum with nonvisualization o f the proximal biceps tendon, likely disrupted. The tendon does appear to be present within the daniel ps groove, however. REMAINDER OF LABRUM AND IGHL : Generally intact. PERIARTICULAR AND ADJACENT SOFT TISSUES: No masses or abnormal nodes. OTHER: No other significant finding. IMPRESSION: 1. Largely healed fracture deformities through the proximal humerus. Persistent patchy marrow edema. Largely related to the posttraumatic humeral head deformity, there is marked subacromial narrowing with what appears to be at least partial tear of the anterior fibers of the supraspinatus. Tendinosi s otherwise. 2. Potential biceps disruption. TECHNICAL DOCUMENTATION: JOB ID: [id number] [employer]- All Rights Reserved Reading location - IP/workstation name: [email or web address]
== END ==
LOC: RAD 06:49
PROVIDERS: ATTEND Physician Assistant
DX: M25.512 Pain in left shoulder (principal)

== ENCOUNTER 2020-05-26 14:56 | Emergency (ER) | payer MEDICARE, OTHER ==
[2020-05-26] MEDS ORDERED: ACETAMINOPHEN 325 MG TABLET PO ONE (15:54)
--- NOTE | 2020-05-26 15:59 | ER Document Report ---
ED Medical Screen (RME) - General Chief Complaint: Low Back Pain Stated Complaint: LOW BACK PAIN Time Seen by Provider: 05/26/20 15:49 Primary Care Provider: RAMONA PAT PA [Primary Care Provider] - Follow up as needed Mode of Arrival: Ambulatory Information source: Patient Notes: 69-year-old male presented to ED for complaint of upper and lower back pain. He states he had a little bit of a cough but he was tested negative for Covid 2 weeks ago. He does have a fever of 100.7 pulse of 124 respirations of 20. I have ordered a sepsis work-up to be started. I have also ordered a low back x- ray. Patient is alert oriented states he has pain across the upper and lower back. I have greeted and performed a rapid initial assessment of this patient. A comprehensive ED assessment and evaluation of the patient, analysis of test results and completion of medical decision making process will be conducted by an additional ED providers. TRAVEL OUTSIDE OF THE [place] IN LAST 30 DAYS: No - Related Data Allergies/Adverse Reactions: amoxicillin [Amoxicillin] Allergy (Mild, Verified 02/11/16 14:02) diarrhea,vomiting,SOB Past Medical History - Past Medical History Cardiac Medical History: Reports: Hx Coronary Artery Disease - 2 stents in legs ', Hx Hypercholesterolemia, Hx Hypertension - meds x many yrs, Hx Peripheral Vascular Disease Denies: Hx DVT, Hx Heart Attack Pulmonary Medical History: Reports: Hx Pneumonia Denies: Hx Asthma, Hx Bronchitis, Hx COPD - lung collapsed 1983 ,surgery 84, Hx Tuberculosis Neurological Medical History: Denies: Hx Cerebrovascular Accident, Hx Seizures Endocrine Medical History: Reports: Hx Diabetes Mellitus Type 2 Renal/ Medical History: Denies: Hx Peritoneal Dialysis GI Medical History: Reports: Hx Hiatal Hernia Musculoskeltal Medical History: Reports Hx Arthritis - knees Past Surgical History: Reports: Hx Cardiac Surgery, Hx Orthopedic Surgery - left knee surgery, Hx Vascular Surgery - [facility] 2004, Other - COLONOSCOPY 5-6 YRS AGO, NEG.. Denies: Hx Pacemaker - Immunizations Hx Diphtheria, Pertussis, Tetanus Vaccination: No Physical Exam - Vital signs Vitals: Temp Pulse Resp BP Pulse Ox 100.7 F H 122 H 20 149/96 H 94 05/26/20 15:52 05/26/20 15:52 05/26/20 15:52 05/26/20 15:52 05/26/20 15:52 Course - Vital Signs Vital signs: Temp Pulse Resp BP Pulse Ox 100.7 F H 122 H 20 149/96 H 94 05/26/20 15:52 05/26/20 15:52 05/26/20 15:52 05/26/20 15:52 05/26/20 15:52 Doctor's Discharge - Discharge Referrals: RAMONA PAT PA [Primary Care Provider] - Follow up as needed
--- NOTE | 2020-05-26 16:33 | ER Document Report ---
ED Fever - General Chief Complaint: Fever Stated Complaint: LOW BACK PAIN Time Seen by Provider: 05/26/20 15:49 Primary Care Provider: RAMONA PAT PA [Primary Care Provider] - Follow up as needed Mode of Arrival: Ambulatory Notes: CHIEF COMPLAINT: Low back pain, cough, fever HPI: 69-year-old male presenting to the emergency department with multiple complaints. Developed pain across the lower back without incontinence of urine or bowel or trauma 2 weeks ago. States it has continued to ache and has progressively gotten worse. Denies weakness numbness or tingling in the legs. Denies abdominal pain. Denies dysuria. Patient states he developed a cough approximately a week ago has COPD history but does not actively smoke. Patient reports mild shortness of breath. Patient developed a fever last night. ROS: See HPI - all other systems were reviewed and are otherwise negative Constitutional: Positive fever Eyes: no drainage, no blurred vision ENT: no runny nose, no sore throat Cardiovascular: no chest pain Resp: intermittent SOB, positive cough GI: no vomiting, no diarrhea, no abdominal pain : no dysuria Integumentary: no rash Allergy: no hives Musculoskeletal: no extremity pain or swelling, positive low back pain Neurological: no numbness/tingling, no weakness MEDICATIONS: I agree with the patient medications as charted by the RN. ALLERGIES: I agree with the allergies as charted by the RN. PAST MEDICAL HISTORY/PAST SURGICAL HISTORY: Reviewed and agree as charted by RN. SOCIAL HISTORY: Reviewed and agree as charted by RN. FAMILY HISTORY: No significant familial comorbid conditions directly related to patient complaint EXAM: Reviewed vital signs as charted by RN. CONSTITUTIONAL: Alert and oriented and responds appropriately to questions. Wel l-appearing; well-nourished HEAD: Normocephalic; atraumatic EYES: PERRL; Conjunctivae clear, sclerae non-icteric ENT: normal nose; no rhinorrhea; moist mucous membranes; pharynx without lesions noted, no uvula edema or deviation, no tonsillar hypertrophy, phonation normal NECK: Supple without meningismus; non-tender; no cervical lymphadenopathy, no masses CARD: RRR; no murmurs, no clicks, no rubs, no gallops; symmetric distal pulses RESP: Normal chest excursion without splinting or tachypnea; breath sounds clear although decreased and equal bilaterally; no wheezes, no rhonchi, no rales, pulse oximetry 94% on room air not hypoxic ABD/GI: Normal bowel sounds; non-distended; soft, non-tender, no rebound, no guarding; no palpable organomegaly or masses. BACK: The back appears normal and is non-tender to palpation, there is no CVA tenderness EXT: Normal ROM in all joints; non-tender to palpation; no cyanosis, no effusions, no edema SKIN: Normal color for age and race; warm; dry; good turgor; no acute lesions noted NEURO: Moves all extremities equally; Motor and sensory function intact PSYCH: The patient's mood and manner are appropriate. Grooming and personal hygiene are appropriate. MDM: 69-year-old male presenting for evaluation of low back pain for 2 weeks, cough for 1 week, fever for 1 day. Intermittent shortness of breath but no chest pain no abdominal pain no dysuria. Initial screening labs for sepsis placed via triage process. Patient had a negative Covid screening 2 weeks ago but given the cough and fever onset for 1 week we will recheck Covid The patient was evaluated during the global COVID-19 pandemic and that diagnosis was suspected/considered upon their initial presentation. Their evaluation, treatment and testing was consistent with current guidelines for patients who present with complaints or symptoms that may be related to COVID-19 TRAVEL OUTSIDE OF THE [place] IN LAST 30 DAYS: No - Related Data Allergies/Adverse Reactions: amoxicillin [Amoxicillin] Allergy (Mild, Verified 02/11/16 14:02) diarrhea,vomiting,SOB Past Medical History - General Information source: Patient - Social History Smoking Status: Unknown if Ever Smoked Family History: Reviewed & Not Pertinent, CVA - MOTHER - Past Medical History Cardiac Medical History: Reports: Hx Coronary Artery Disease - 2 stents in legs ', Hx Hypercholesterolemia, Hx Hypertension - meds x many yrs, Hx Peripheral Vascular Disease Denies: Hx DVT, Hx Heart Attack Pulmonary Medical History: Reports: Hx Pneumonia Denies: Hx Asthma, Hx Bronchitis, Hx COPD - lung collapsed 1983 ,surgery , Hx Tuberculosis Neurological Medical History: Denies: Hx Cerebrovascular Accident, Hx Seizures Endocrine Medical History: Reports: Hx Diabetes Mellitus Type 2 Renal/ Medical History: Denies: Hx Peritoneal Dialysis GI Medical History: Reports: Hx Hiatal Hernia Musculoskeletal Medical History: Reports Hx Arthritis - knees Past Surgical History: Reports: Hx Cardiac Surgery, Hx Orthopedic Surgery - left knee surgery, Hx Vascular Surgery - [facility] BYPASS 2004, Other - COLONOSCOPY 5-6 YRS AGO, NEG.. Denies: Hx Pacemaker - Immunizations Hx Diphtheria, Pertussis, Tetanus Vaccination: No Hx Pneumococcal Vaccination: 10/15/11 Physical Exam - Vital signs Vitals: Temp Pulse Resp BP Pulse Ox 100.7 F H 122 H 20 149/96 H 94 05/26/20 15:52 05/26/20 15:52 05/26/20 15:52 05/26/20 15:52 05/26/20 15:52 Course - Re-evaluation Re-evalutation: 05/26/20 16:58 I went to speak with the patient about his chest x-ray results with suggest multi lobar pneumonia. Patient has been placed on the monitor now and appears to be in a bigeminal rhythm. He reports no heart or cardiac problems. Nursing will obtain EKG. Will order Rocephin given the likelihood of pneumonia 05/26/20 17:31 EKG sinus tachycardia with a ventricular rate of 114. Ventricular bigeminy is noted. MO 136, QT 312, QTc 430, abnormal EKG. Interpreted by emergency department physicians. 05/26/20 18:[address] Viera, attending. Patient's lactic acid is normal. Magnesium is normal. Patient still throwing multiple PVCs but not bigeminal. Patient maintaining pulse oximetry 96% on room air ambulating around the room. Attempting to give urine specimen. Patient creatinine is elevated from baseline at 1.69 will give additional IV fluids. Have ordered antibiotics for pneumonia. 05/26/20 19:22 I spoke with the patient at length. He has a known irregular heartbeat. He follows with Dr. Crews cardiology. States he saw him last month. Discussed with Dr. Viera attending. Patient looks well. Not hypoxic. Will discharge home with antibiotics steroids albuterol - Vital Signs Vital signs: Temp Pulse Resp BP Pulse Ox 100.7 F H 122 H 23 H 130/82 H 95 05/26/20 15:52 05/26/20 15:52 05/26/20 18:21 05/26/20 18:21 05/26/20 18:21 - Laboratory Results Result Diagrams: 05/26/20 16:55 05/26/20 16:55 Laboratory Results Interpreted: 05/26/20 05/26/20 05/26/20 16:55 16:55 18:23 RDW 15.1 H Lymph % (Auto) 9.8 L [place] % (Auto) 17.3 H Sodium 135.6 L Creatinine 1.69 H Est GFR ( Amer) 49 L Est GFR (MDRD) Non-Af 40 L Glucose 177 H ALT 77 H Urine Protein 100 H Urine Ketones 20 H Urine Ascorbic Acid 20 H Critical Laboratory Results Reviewed: No Critical Results - Radiology Results Critical Radiology Results Reviewed: No Critical Results Discharge - Discharge Clinical Impression: Person under investigation for COVID-19, PVC (premature ventricular co ntraction), Acute kidney injury, Fever in adult Pneumonia Qualifiers: Pneumonia type: due to unspecified organism Laterality: bilateral Lung location: unspecified part of lung Qualified Code(s): J18.9 - Pneumonia, unspecified organism Condition: Stable Disposition: HOME, SELF-CARE Additional Instructions: You are considered a person under investigation for COVID-19 at this time self quarantine at home pending your test results. Use the albuterol inhaler 2 puffs every 4 hours for cough or shortness of breath. Take the Zithromax to treat the pneumonia that was noted on your x-ray. Take the Decadron to decrease the inflammatory changes in your lungs. Follow-up with your primary care provider for reevaluation of symptoms call for appointment. If you have worsening symptoms return to the emergency department for reevaluation. Make sure that you are hydrating well at home. Take Tylenol or ibuprofen for fevers Prescriptions: Dexamethasone [Decadron 4 Mg Tablet] 4 mg PO DAILY #7 tablet Albuterol Sulfate [Proair HFA Inhalation Aerosol 8.5 gm MDI] 2 puff IH Q4H PRN #1 mdi PRN Reason: Azithromycin [Zithromax 250 mg Tablet] 250 mg PO ASDIR PRN #6 tablet PRN Reason: Referrals: RAMONA PAT PA [Primary Care Provider] - Follow up as needed
[2020-05-26] MEDS ORDERED: NORMAL SALINE 1000 ML 1,000 ML IV ONE ×2 (16:40→18:05)
--- NOTE | 2020-05-26 16:45 | RADIOLOGY REPORT (SQ) ---
EXAM DESCRIPTION: CHEST 2 VIEWS IMAGES COMPLETED DATE/TIME: 05/26/2020 4:18 pm REASON FOR STUDY: Back pain fever COMPARISON: 06/27/2015 EXAM PARAMETERS: NUMBER OF VIEWS: two views TECHNIQUE: Digital Frontal and Lateral radiographic views of the chest acquired. RADIATION DOSE: NA LIMITATIONS: none FINDINGS: LUNGS AND PLEURA: Subtle mixed interstitial and airspace opacities involving the lung base s. No pleural effusion or pneumothorax. Chain sutures are seen at the left apex. MEDIASTINUM AND HILAR STRUCTURES: No masses or contour abnormalities. HEART AND VASCULAR STRUCTURES: Heart normal size. No evidence for failure. BONES: No acute findings. HARDWARE: None in the chest. OTHER: No other significant finding. IMPRESSION: In the appropriate clinical setting, findings are consistent with developing multi lobar pneumonia. TECHNICAL DOCUMENTATION: JOB ID: [id number] 2010 [employer]- All Rights Reserved Reading location - IP/workstation name: [email or web address]
--- NOTE | 2020-05-26 16:48 | RADIOLOGY REPORT (SQ) ---
EXAM DESCRIPTION: L SPINE WHOLE IMAGES COMPLETED DATE/TIME: 05/26/2020 4:18 pm REASON FOR STUDY: Upper and lower back pain fever COMPARISON: None. NUMBER OF VIEWS: Five views including obliques. TECHNIQUE: AP, lateral, oblique, and sacral radiographic images acquired of the lumbar spine. LIMITATIONS: None. FINDINGS: MINERALIZATION: Normal. SEGMENTATION: Normal. No transitional anatomy. ALIGNMENT: Normal. VERTEBRAE: Maintained height. No fracture or worrisome bone lesion. DISCS: The intervertebral disc heights appear largely preserved. Marginal osteophytes are seen at th e L4/5 and L5/S1 levels. Mild degenerative changes are noted of the lower thoracic vertebral bodies as well. POSTERIOR ELEMENTS: Pedicles and facets are intact. No pars defect or posterior arch defects. Facet arthropathy is present. HARDWARE: Multiple surgical clips localize to the abdomen. PARASPINAL SOFT TISSUES: Normal. PELVIS: Intact as visualized. No fractures or worrisome bone lesions. SI joints intact. OTHER: No other significant finding. IMPRESSION: No acute findings. Background of multilevel spondylotic changes most significantly invo lving the lumbosacral junction. TECHNICAL DOCUMENTATION: JOB ID: [id number] [employer]- All Rights Reserved Reading location - IP/workstation name: [email or web address]
[2020-05-26] MEDS ORDERED: CEFTRIAXONE 1 GM/D5W RTU 1 GM/50 ML RTUPB IV ONE (17:15)
[2020-05-26 17:31] LABS: VENOUS BLOOD BASE EXCESS 0.7 mmol/L; VENOUS BLOOD HCO3 26.9 mmol/L (20-32); VENOUS BLOOD PCO2 47.8 mmHg (35-63); VENOUS BLOOD PH 7.37 (7.30-7.42)
[2020-05-26 17:33] LABS: ABSOLUTE LYMPHOCYTES (AUTO) 0.5 10^3/uL (0.5-4.7); ABSOLUTE MONOCYTES (AUTO) 0.9 10^3/uL (0.1-1.4); ABSOLUTE NEUT (AUTO) 3.9 10^3/uL (1.7-8.2); BASOPHILS % (AUTO) 0.5 % (0-2); HEMOGLOBIN 14.8 g/dL (13.5-17.0); LYMPHOCYTES % (AUTO) 9.8 % (13-45); MEAN CORPUSCULAR HEMOGLOBIN 28.6 pg (27.0-33.4); MEAN CORPUSCULAR HGB CONC 33.6 g/dL (32.0-36.0); MEAN CORPUSCULAR VOLUME 85 fl (80-97); MONOCYTES % (AUTO) 17.3 % (3-13); PLATELET COUNT 193 10^3/uL (150-450); RED BLOOD COUNT 5.16 10^6/uL (4.35-5.55); RED CELL DISTRIBUTION WIDTH 15.1 % (11.5-14.0); SEGMENTED NEUTROPHILS % (AUTO) 72.4 % (42-78); TOTAL CELLS COUNTED % (AUTO) 100 %; WHITE BLOOD COUNT 5.4 10^3/uL (4.0-10.5)
[2020-05-26 17:39] LABS: INTERNATIONAL RATION (INR) 0.92; PROTHROMBIN TIME 12.6 SEC (11.4-15.4)
[2020-05-26] MEDS ORDERED: FENTANYL CITRATE INJ/PF 100 MCG/2 ML AMPUL IV ONE (17:39)
[2020-05-26 17:48] LABS: ALKALINE PHOSPHATASE 66 U/L (38-126); ANION GAP 12 (5-19); ASPARTATE AMINO TRANSFERASE 55 U/L (17-59); BILIRUBIN,DIRECT 0.2 mg/dL (0.0-0.4); BILIRUBIN,TOTAL 0.8 mg/dL (0.2-1.3); BLOOD UREA NITROGEN 18 mg/dL (7-20); CALCIUM 9.2 mg/dL (8.4-10.2); CARBON DIOXIDE 24 mmol/L (22-30); CHLORIDE 100 mmol/L (98-107); GLUCOSE 177 mg/dL (75-110); POTASSIUM 4.5 mmol/L (3.6-5.0); TOTAL PROTEIN 6.9 g/dL (6.3-8.2)
[2020-05-26 18:47] LABS: APPEARANCE,URINE SLIGHTLY-CLOUDY; BILIRUBIN,URINE NEGATIVE (NEGATIVE); COLOR,URINE AMBER; GLUCOSE, URINE NEGATIVE (NEGATIVE); KETONES,URINE 20 mg/dL (NEGATIVE); LEUKOCYTE ESTERASE,URINE NEGATIVE (NEGATIVE); NITRITE,URINE NEGATIVE (NEGATIVE); PROTEIN,URINE 100 mg/dL (NEGATIVE); URINE SPECIFIC GRAVITY 1.027; UROBILINOGEN,URINE NEGATIVE mg/dL (<2.0)
[2020-05-26] MEDS ORDERED: AZITHROMYCIN 250 MG TABLET PO ONE (18:49)
[2020-05-26] MEDS ORDERED: IPRATROPIUM/ALBUTEROL 0.5-2.5 MG/3 ML AMPUL NEB ONE (18:50)
[2020-05-26 19:55] VITALS: BP 139/95
--- NOTE | 2020-05-26 22:06 | EKG REPORT ---
SEVERITY:- ABNORMAL ECG - SINUS TACHYCARDIA VENTRICULAR BIGEMINY PROMINENT P WAVES, NONDIAGNOSTIC NONSPECIFIC ST-T CHANGES, DIFFUSE : Confirmed by: Tristin Roman MD 26-May-2020 22:06:03
== END 2020-05-26 20:15 | disposition home or self-care (01) ==
LOC: ER 14:56
DX: U07.1 COVID-19 (principal); J18.9 Pneumonia, unspecified organism; I49.3 Ventricular premature depolarization; N17.9 Acute kidney failure, unspecified; R50.9 Fever, unspecified; M54.5 Low back pain; E78.00 Pure hypercholesterolemia, unspecified; I10 Essential (primary) hypertension; E11.9 Type 2 diabetes mellitus without complications; Z95.1 Presence of aortocoronary bypass graft
CPT/HCPCS: 93005; 94640; 99285; 96361; 96374; 96375; 36415; 87040; 87086; 83605; 83735; 85025; 85610; 80053; 81001; 84484; 82803; 71046; 72110; 93010; U0003; A9270 ×2; J3010; J7030; J0696; C9803; 87635

== ENCOUNTER 2020-05-30 09:15 | Inpatient (IN) | payer MEDICARE, OTHER ==
--- NOTE | 2020-05-30 09:28 | ER Document Report ---
ED General - General Stated Complaint: SHORTNESS OF BREATH Time Seen by Provider: 05/30/20 09:25 Notes: 69-year-old male with recent Covid diagnosis on day 5 of illness, was seen here for low back pain but had cough and shortness of breath Covid was sent as an outpatient and came back positive after he was discharged. He returns today with worsening cough shortness of breath generalized fatigue with decreased oral intake. Denies leg swelling, he denies a history of CHF or chest pain. Symptoms are moderate and increasing. No other alleviating factors. TRAVEL OUTSIDE OF THE [place] IN LAST 30 DAYS: No - Related Data Allergies/Adverse Reactions: amoxicillin [Amoxicillin] Allergy (Mild, Verified 05/30/20 16:14) diarrhea,vomiting,SOB Past Medical History - General Information source: Patient Cannot obtain history due to: Unstable vital signs - Social History Smoking Status: Never Smoker Family History: Reviewed & Not Pertinent, CVA - MOTHER - Past Medical History Cardiac Medical History: Reports: Hx Coronary Artery Disease - 2 stents in legs ', Hx Hypercholesterolemia, Hx Hypertension - meds x many yrs, Hx Peripheral Vascular Disease Denies: Hx DVT, Hx Heart Attack Pulmonary Medical History: Reports: Hx Pneumonia Denies: Hx Asthma, Hx Bronchitis, Hx COPD - lung collapsed 1983 ,surgery , Hx Tuberculosis Neurological Medical History: Denies: Hx Cerebrovascular Accident, Hx Seizures Endocrine Medical History: Reports: Hx Diabetes Mellitus Type 2 Renal/ Medical History: Denies: Hx Peritoneal Dialysis GI Medical History: Reports: Hx Hiatal Hernia Musculoskeletal Medical History: Reports Hx Arthritis - knees Past Surgical History: Reports: Hx Cardiac Surgery, Hx Orthopedic Surgery - left knee surgery, Hx Vascular Surgery - [facility] 2004, Other - COLONOSCOPY 5-6 YRS AGO, NEG.. Denies: Hx Pacemaker - Immunizations Hx Diphtheria, Pertussis, Tetanus Vaccination: No Hx Pneumococcal Vaccination: 10/15/11 Review of Systems - Review of Systems Notes: REVIEW OF SYSTEMS Acutely ill PHYSICAL EXAMINATION General: Pale mild distress Head: Atraumatic, normocephalic ENT: Mouth normal, oropharynx moist, no exudates or tonsillar enlargement Eyes: Conjunctiva normal, pupils equal, lids normal Neck: No JVD, supple, no guarding CVS: Tachycardic Resp: Neck with mild accessory muscle use GI: Nondistended, soft, no tenderness to palpation, no rebound or guarding Ext: No deformities, no edema, normal range of motion in upper and lower ext Back: No CVA or midline TTP Skin: No rash, warm Lymphatic: No lymphadeopathy noted Neuro: Awake, alert. Face symmetric. GCS 15. Physical Exam - Vital signs Vitals: Pulse Ox 91 L 05/30/20 09:20 Course - Re-evaluation Re-evalutation: 05/30/20 17:08 COVID-19, fifth day in not requiring oxygen CT was done for PE which is negative but confirms Covid-like infiltrates, labs are essentially unremarkable. We will not hydrate as I would like him a little bit dry given his Covid. Given oral Decadron and discussed with Dr. Tomas for admission. Stable on nasal cannula throughout - Vital Signs Vital signs: Temp Pulse Resp BP Pulse Ox 102.3 F H 101 H 23 H 132/70 H 95 05/30/20 10:05 05/30/20 10:28 05/30/20 15:00 05/30/20 14:01 05/30/20 14:00 - Laboratory Results Result Diagrams: 05/30/20 09:31 05/30/20 09:31 Laboratory Results Interpreted: 05/30/20 05/30/20 05/30/20 09:31 09:31 09:31 RDW 15.0 H Seg Neuts % (Manual) 83 H Lymphocytes % (Manual) 3 L Abs Lymphs (Manual) 0.4 L VBG pCO2 Sodium 134.5 L BUN 29 H Creatinine 1.81 H Est GFR ( Amer) 45 L Est GFR (MDRD) Non-Af 37 L Glucose 279 H POC Glucose Lactic Acid 2.4 H AST 68 H ALT 70 H 05/30/20 05/30/20 09:31 09:32 RDW Seg Neuts % (Manual) Lymphocytes % (Manual) Abs Lymphs (Manual) VBG pCO2 33.7 L Sodium BUN Creatinine Est GFR ( Amer) Est GFR (MDRD) Non-Af Glucose POC Glucose 273 H Lactic Acid AST ALT Critical Laboratory Results Reviewed: No Critical Results - Radiology Results Critical Radiology Results Reviewed: No Critical Results Critical Care Note - Critical Care Note Total time excluding time spent on procedures (mins): 32 Comments: The above patient is critically ill. Not including procedures, but including direct re-evaluations, speaking with patient and/or consultants, interpreting results, and documenting, I spent the total amount of minute listed listed above on critical care time Discharge - Discharge Clinical Impression: Pulmonary infiltrate, Person under investigation for COVID-19 Condition: Fair Disposition: ADMITTED INPATIENT Admitting Provider: Pao (Hospitalist) Unit Admitted: [facility]
--- NOTE | 2020-05-30 09:55 | RADIOLOGY REPORT (SQ) ---
EXAM DESCRIPTION: CHEST SINGLE VIEW IMAGES COMPLETED DATE/TIME: 05/30/2020 9:46 am REASON FOR STUDY: shortness of breath COMPARISON: 05/26/2020 EXAM PARAMETERS: NUMBER OF VIEWS: One view. TECHNIQUE: Single frontal radiographic view of the chest acquired. RADIATION DOSE: NA LIMITATIONS: None. FINDINGS: LUNGS AND PLEURA: Slight increase in the basilar interstitial airspace disease when compar ed to prior study. No other interval change. No pneumothorax or effusion. MEDIASTINUM AND HILAR STRUCTURES: No masses. Contour normal. HEART AND VASCULAR STRUCTURES: Heart normal in size. Normal vasculature. BONES: No acute findings. HARDWARE: None in the chest. OTHER: No other significant finding. IMPRESSION: Slight increase in basilar interstitial airspace disease when compared to prior exam. TECHNICAL DOCUMENTATION: JOB ID: [id number] [employer]- All Rights Reserved Reading location - IP/workstation name: [email or web address]
--- NOTE | 2020-05-30 10:11 | EKG REPORT ---
SEVERITY:- BORDERLINE ECG - SINUS TACHYCARDIA PROBABLE LEFT ATRIAL ABNORMALITY BORDERLINE T WAVE ABNORMALITIES : Confirmed by: Serg Borges MD 30-May-2020 10:11:25
[2020-05-30 10:15] LABS: VENOUS BLOOD BASE EXCESS -2.7 mmol/L; VENOUS BLOOD HCO3 20.8 mmol/L (20-32); VENOUS BLOOD PCO2 33.7 mmHg (35-63); VENOUS BLOOD PH 7.41 (7.30-7.42)
[2020-05-30 10:21] LABS: HEMATOCRIT 40.6 % (37.9-51.0); MEAN CORPUSCULAR HEMOGLOBIN 28.9 pg (27.0-33.4); MEAN CORPUSCULAR HGB CONC 34.5 g/dL (32.0-36.0); MEAN CORPUSCULAR VOLUME 84 fl (80-97); PLATELET COUNT 216 10^3/uL (150-450); RED BLOOD COUNT 4.84 10^6/uL (4.35-5.55); WHITE BLOOD COUNT 8.1 10^3/uL (4.0-10.5)
[2020-05-30 10:33] LABS: ALBUMIN 3.6 g/dL (3.5-5.0); ALKALINE PHOSPHATASE 58 U/L (38-126); ANION GAP 10 (5-19); ASPARTATE AMINO TRANSFERASE 68 U/L (17-59); BILIRUBIN,DIRECT 0.1 mg/dL (0.0-0.4); BILIRUBIN,TOTAL 0.6 mg/dL (0.2-1.3); BLOOD UREA NITROGEN 29 mg/dL (7-20); CALCIUM 9.1 mg/dL (8.4-10.2); CARBON DIOXIDE 25 mmol/L (22-30); CHLORIDE 100 mmol/L (98-107); GLUCOSE 279 mg/dL (75-110); POTASSIUM 4.6 mmol/L (3.6-5.0); TOTAL PROTEIN 6.4 g/dL (6.3-8.2)
[2020-05-30 10:59] LABS: ABSOLUTE LYMPHOCYTES# (MANUAL) 0.4 10^3/uL (0.5-4.7); ABSOLUTE MONOCYTES # (MANUAL) 0.6 10^3/uL (0.1-1.4); BAND NEUTROPHILS % (MANUAL) 3 % (3-5); BASOPHILS % (MANUAL) 1 % (0-2); EOSINOPHILS % (MANUAL) 0 % (0-6); LYMPHOCYTES % (MANUAL) 3 % (13-45); MONOCYTES % (MANUAL) 8 % (3-13); SEGMENTED NEUTROPHILS % (MAN) 83 % (42-78); TOTAL CELLS COUNTED 100
[2020-05-30 11:00] LABS: ANISOCYTOSIS SLIGHT; PLATELET CLUMPS PRESENT; PLATELET COMMENT ADEQUATE
--- NOTE | 2020-05-30 11:27 | RADIOLOGY REPORT (SQ) ---
EXAM DESCRIPTION: CTA CHEST IMAGES COMPLETED DATE/TIME: 05/30/2020 11:05 am REASON FOR STUDY: SOB, recent covid COMPARISON: Chest x-ray done earlier the same day. TECHNIQUE: CT scan of the chest performed using helical scanning technique with dynamic intravenous contrast injection. Images reviewed with lung, soft tissue and bone windows. Reconstructed coronal and sagittal MPR images reviewed. Additional 3 dimensional post-processing performed to develop Maximal Intensity Projection images (VT P). All images stored on PACS. All CT scanners at this facility use dose modulation, iterative reconstruction, and/or weight based d osing when appropriate to reduce radiation dose to as low as reasonably achievable (ALARA). [facility]: Dose Right [facility]: CareDose [facility]: Dose Right [facility]: Teradose 4D [facility]: [employer] CONTRAST TYPE AND DOSE: contrast/concentration: Isovue 300.00 mmol/ml; Total Contrast Delivered: 78. 0 ml; Total Saline Delivered: 60.4 ml Contrast bolus optimized for the pulmonary arteries. Not diagnostic for the aorta. RENAL FUNCTION: BUN 29, creatinine 1.1 RADIATION DOSE: CT Rad equipment meets quality standard of care and radiation dose reduction techniq ues were employed. CTDIvol: 13.2 - 20.4 mGy. DLP: 743 mGy-cm. . LIMITATIONS: None. FINDINGS: LUNGS AND PLEURA: Diffuse bilateral airspace disease more prominent periphery. Probable u nderlying chronic interstitial lung disease. AORTA AND GREAT VESSELS: No aneurysm. Contrast bolus not optimized for the aorta. HEART: No pericardial effusion. No significant coronary artery calcifications. PULMONARY ARTERIES: No emboli visualized in the main pulmonary arteries or the segmental branches. HILAR AND MEDIASTINAL STRUCTURES: Enlarged peritracheal lymph nodes. The largest measures approximat ronny 2.2 cm. This could be reactive or neoplastic. There prominent right hilar nodes as well. HARDWARE: None in the chest. UPPER ABDOMEN: No significant findings. Limited exam. THYROID AND OTHER SOFT TISSUES: No masses. No adenopathy. BONES: No acute or significant finding. 3D MIPS: Confirm above findings. OTHER: No other significant finding. IMPRESSION: Patchy bilateral airspace disease most marked in the periphery consistent with [place] 19. Probable underlying interstitial fibrosis. No pulmonary emboli. Mediastinal and right hilar adenopathy this could be reactive or neoplastic. COMMENT: Quality ID # [id number]: Final reports with documentation of one or more dose reduction techniques (e.g., Automated exposure control, adjustment of the mA and/or kV according to patient size, use of iterative reconstruction technique) TECHNICAL DOCUMENTATION: JOB ID: [id number] 2010 [employer]- All Rights Reserved Reading location - IP/workstation name: [email or web address]
[2020-05-30] MEDS ORDERED: DEXAMETHASONE 4 MG TABLET PO ONE (11:53)
[2020-05-30] MEDS ORDERED: ACETAMINOPHEN 325 MG TABLET PO PRN (14:08)
[2020-05-30] MEDS ORDERED: ONDANSETRON HCL INJ/PF 4 MG/2 ML SDV IV PRN (14:08)
[2020-05-30] MEDS ORDERED: DEXTROSE 50%-WATER 25 GM/50 ML DISP.SYRIN IV PRN ×2 (14:22)
[2020-05-30] MEDS ORDERED: GLUCAGON,HUMAN RECOMB 1 MG INJ IM PRN (14:22)
[2020-05-30] MEDS ORDERED: DEXTROSE 40% GEL 15 GM TUBE PO PRN ×2 (14:22)
[2020-05-30] MEDS ORDERED: ALBUTEROL SULFATE HFA (90 MCG/PUFF) 8 GM MDI IH PRN (14:23)
--- NOTE | 2020-05-30 14:42 | PDOC H&P ---
History of Present Illness Admission Date/PCP: 05/30/20 11:56 JALIL DELA CRUZ Patient complains of: sob, weakness History of Present Illness: JOSE GAMEZ is a 69 year old male with hx of DM2, Htn, irregular heart beat not on anticoagulation, who presents to the hospital via EMS for evaluation of hypoxia and weakness. Patient has been having shortness of breath and cough for the past 1 week. 4 days ago, he tested positive for COVID-19. He has been u nder home isolation. In the past week he has been having increasing fatigue and weakness in all extremities that has led to a couple of falls. Today EMS arrived after a fall. He denied hitting his head. He was found to be hypoxic at 86 to 88% on room air. In the ER he was noted to be 88% on room air and improved to 92% on 2 L. He is otherwise very comfortable. He denies using oxygen at home. He denies any history of COPD or asthma but does have extensive smoking history of about 30 to 40 years. Past Medical History Cardiac Medical History: Reports: Hyperlipidema, Hypertension - meds x many yrs, Peripheral Vascular Disease Denies: DVT, Myocardial Infarction Pulmonary Medical History: Reports: Pneumonia Denies: Asthma, Bronchitis, Chronic Obstructive Pulmonary Disease (COPD) - lung collapsed 1983 ,surgery 84, Tuberculosis Neurological Medical History: Denies: Seizures Endocrine Medical History: Reports: Diabetes Mellitus Type 2 GI Medical History: Reports: Hiatal Hernia Musculoskeltal Medical History: Reports: Arthritis - knees Hematology: Denies: Anemia Past Surgical History Past Surgical History: Reports: Orthopedic Surgery - left knee surgery, Vascular Surgery - AOTOBIFEM BYPASS 2004, Other - COLONOSCOPY 5-6 YRS AGO, NEG. Denies: Pacemaker Social History Smoking Status: Former Smoker Frequency of Alcohol Use: None Hx Recreational Drug Use: No Hx Prescription Drug Abuse: No - Advance Directive Resuscitation Status: Full Code Family History Family History: CVA - MOTHER Parental Family History Reviewed: Yes Children Family History Reviewed: Yes Sibling(s) Family History Reviewed.: Yes Medication/Allergy Home Medications: Aspirin [Aspirin 81 mg Chewable Tablet] 81 mg PO 1600 10/13/11 Clopidogrel Bisulfate [Plavix 75 mg Tablet] 75 mg PO DAILY 10/13/11 Docosahexanoic Acid/Epa [Fish Oil Softgel] 1 each PO DAILY 10/13/11 Glipizide 10 mg PO TID 10/13/11 Lisinopril/Hydrochlorothiazide [Zestoretic 20-25 mg Tablet] 1 each PO DAILY 10/13/11 Metformin HCl [Glucophage 1000 mg Tablet] 1,000 mg PO TID 10/13/11 Metoprolol Succinate [Toprol Xl 25 mg Tab.sr] 25 mg PO DAILY 10/13/11 Temazepam [Restoril] 30 mg PO QHS 10/13/11 Terazosin HCl [Hytrin] 2 mg PO QHS 10/13/11 Potassium Chloride [Klor-Con 10 Meq Tablet ER] 10 meq PO BID 10/17/12 Atorvastatin Calcium [Lipitor 10 mg Tablet] 10 mg PO DAILY 02/11/16 Cinnamon Bark [Cinnamon Bark 500 mg Capsule] 1,000 mg PO DAILY 02/11/16 Folic Acid 1 mg PO DAILY 07/05/16 Omeprazole 20 mg PO DAILY 07/05/16 Prednisone 1 mg PO DAILY 07/05/16 Prednisone 5 mg PO DAILY 07/05/16 Chlorpheniramine Maleate [Allergy Relief] 1 tab PO Q6 #120 pkg 07/09/16 Hydrocodone/Acetaminophen [[place] 5-325 Tablet] 1 each PO Q6 PRN #15 tablet 01/22/18 Albuterol Sulfate [Proair HFA Inhalation Aerosol 8.5 gm MDI] 2 puff IH Q4H PRN #1 mdi 05/26/20 Azithromycin [Zithromax 250 mg Tablet] 250 mg PO ASDIR PRN #6 tablet 05/26/20 Dexamethasone [Decadron 4 Mg Tablet] 4 mg PO DAILY #7 tablet 05/26/20 Allergies/Adverse Reactions: amoxicillin [Amoxicillin] Allergy (Mild, Verified 02/11/16 14:02) diarrhea,vomiting,SOB Review of Systems Constitutional: PRESENT: chills, fever(s) Eyes: ABSENT: visual disturbances Ears: ABSENT: hearing changes Nose, Mouth, and Throat: ABSENT: headache(s) Cardiovascular: ABSENT: chest pain Respiratory: PRESENT: cough, dyspnea Gastrointestinal: ABSENT: abdominal pain, nausea, vomiting Genitourinary: ABSENT: dysuria Musculoskeletal: PRESENT: muscle weakness Integumentary: ABSENT: diaphoresis Neurological: ABSENT: dizziness Endocrine: ABSENT: polyuria Hematologic/Lymphatic: ABSENT: easy bleeding Physical Exam Vital Signs: Temp Pulse Resp BP Pulse Ox 102.3 F H 101 H 23 H 128/64 H 94 05/30/20 10:05 05/30/20 10:28 05/30/20 13:01 05/30/20 13:01 05/30/20 13:01 Intake & Output 05/29/20 05/30/20 05/31/20 06:59 06:59 06:59 Weight 85.5 kg General appearance: PRESENT: no acute distress, cooperative Head exam: PRESENT: normocephalic Eye exam: PRESENT: EOMI Mouth exam: PRESENT: moist Neck exam: ABSENT: JVD Respiratory exam: PRESENT: crackles, symmetrical, unlabored. ABSENT: tachypnea, wheezes Cardiovascular exam: PRESENT: RRR, +S1, +S2. ABSENT: tachycardia GI/Abdominal exam: PRESENT: soft. ABSENT: rebound, rigid, tenderness Extremities exam: ABSENT: pedal edema Neurological exam: PRESENT: alert, awake, oriented to person, oriented to place, oriented to time. ABSENT: motor sensory deficit Psychiatric exam: ABSENT: agitated, anxious Focused psych exam: ABSENT: pressured speech Skin exam: ABSENT: jaundice Results Laboratory Results: 05/30/20 09:31 05/30/20 09:31 05/30/20 05/30/20 05/30/20 09:31 09:31 09:31 WBC 8.1 RBC 4.84 Hgb 14.0 Hct 40.6 MCV 84 MCH 28.9 MCHC 34.5 RDW 15.0 H Plt Count 216 Seg Neutrophils % Not Reportable VBG pH VBG pCO2 VBG HCO3 VBG Base Excess Sodium 134.5 L Potassium 4.6 Chloride 100 Carbon Dioxide 25 Anion Gap 10 BUN 29 H Creatinine 1.81 H Est GFR ( Amer) 45 L Glucose 279 H Lactic Acid 2.4 H Calcium 9.1 Total Bilirubin 0.6 AST 68 H Alkaline Phosphatase 58 Total Protein 6.4 Albumin 3.6 05/30/20 09:31 WBC RBC Hgb Hct MCV MCH MCHC RDW Plt Count Seg Neutrophils % VBG pH 7.41 VBG pCO2 33.7 L VBG HCO3 20.8 VBG Base Excess -2.7 Sodium Potassium Chloride Carbon Dioxide Anion Gap BUN Creatinine Est GFR ( Amer) Glucose Lactic Acid Calcium Total Bilirubin AST Alkaline Phosphatase Total Protein Albumin 05/30/20 09:31 NT-Pro-B Natriuret Pep 26 Impressions: Chest X-Ray 05/30/20 09:16 IMPRESSION: Slight increase in basilar interstitial airspace disease when compared to prior exam. Chest/Abdomen CTA 05/30/20 09:26 IMPRESSION: Patchy bilateral airspace disease most marked in the periphery consistent with Coban 19. Probable underlying interstitial fibrosis. No pulmonary emboli. Mediastinal and right hilar adenopathy this could be reactive or neoplastic. Assessment and Plan - Diagnosis (1) Pneumonia due to COVID-19 virus Is this a current diagnosis for this admission?: Yes Plan: Start on ivermectin, Decadron, remdesivir Isolation (2) Acute respiratory failure with hypoxia Is this a current diagnosis for this admission?: Yes Plan: We will keep patient on 2 L nasal cannula. Will monitor. Likely secondary to COVID-19. CTA chest shows no evidence of PE. (3) CKD (chronic kidney disease) stage 3, GFR 30-59 ml/min Is this a current diagnosis for this admission?: Yes Plan: Creatinine does not seem too far from patient's baseline. I will give some IV fluids and see if any improvement. (4) Type 2 diabetes mellitus with hyperglycemia Qualifiers: Diabetes mellitus manager intermediate insulin use: without halfway use Qualified Code(s): E11.65 - Type 2 diabetes mellitus with hyperglycemia Is this a current diagnosis for this admission?: Yes Plan: Takes metformin and glipizide at home. Resume glipizide. Hold Metformin for 48 hours given contrast study. Sliding scale insulin. Diabetic diet (5) Lactic acid acidosis Is this a current diagnosis for this admission?: Yes Plan: Secondary to pneumonia. Currently not septic. Administer IV fluids. (6) Weakness Is this a current diagnosis for this admission?: Yes Plan: Likely another effect of patient's COVID-19 infection. Has led to multiple falls. We will have physical therapy evaluate - Time Time Spent with patient: 35 or more minutes Anticipated Discharge Disposition: Home, Self Care Anticipated Discharge Timeframe: within 72 hours
--- NOTE | 2020-05-30 14:44 | ADVANCED CARE ---
- Diagnosis (1) Pneumonia due to COVID-19 virus Diagnosis Current: Yes (2) Acute respiratory failure with hypoxia Diagnosis Current: Yes Resuscitation Status: Full Code Discussion: Wants full treatment. Wants to be full code. Also okay with intubation in the absence of cardiac arrest. Agreeable to pressors if needed. Time Spent: 16min
[2020-05-30] MEDS ORDERED: NORMAL SALINE 1000 ML 1,000 ML IV ONE (14:45)
[2020-05-30 15:00] LABS: PHOSPHORUS 2.7 mg/dL (2.5-4.5)
[2020-05-30] MEDS: IVERMECTIN 3 MG TABLET PO SCH (16:43)
[2020-05-30] MEDS: GLIPIZIDE 5 MG TABLET PO SCH (16:44)
[2020-05-30 16:45] LABS: BILIRUBIN,URINE NEGATIVE (NEGATIVE); COLOR,URINE YELLOW; GLUCOSE, URINE 50 mg/dL (NEGATIVE); KETONES,URINE NEGATIVE (NEGATIVE); LEUKOCYTE ESTERASE,URINE NEGATIVE (NEGATIVE); NITRITE,URINE NEGATIVE (NEGATIVE); PROTEIN,URINE 100 mg/dL (NEGATIVE); URINE SPECIFIC GRAVITY 1.056; UROBILINOGEN,URINE NEGATIVE mg/dL (<2.0)
[2020-05-30] MEDS: INSULIN LISPRO 100 UNIT/ML 3 ML VIAL SUBCUT SCH ×2 (16:56→23:14)
[2020-05-30 16:59] LABS: APPEARANCE,URINE SLIGHTLY-CLOUDY
[2020-05-30] MEDS ORDERED: REMDESIVIR 200 MG in NORMAL SALINE 250 ML IV ONE (17:00)
[2020-05-30] MEDS: ALBUTEROL SULFATE HFA (90 MCG/PUFF) 8 GM MDI IH SCH (18:01)
[2020-05-30] MEDS: ASCORBIC ACID 500 MG TABLET PO SCH (18:02)
[2020-05-30] MEDS: FAMOTIDINE 20 MG TABLET PO SCH (23:14)
[2020-05-30] MEDS: HEPARIN SOD (PORCINE) 5,000 UNIT/ML 1 ML VIAL SUBCUT SCH (23:15)
[2020-05-31] MEDS: ALBUTEROL SULFATE HFA (90 MCG/PUFF) 8 GM MDI IH SCH ×4 (00:12→18:35)
[2020-05-31] MEDS: HEPARIN SOD (PORCINE) 5,000 UNIT/ML 1 ML VIAL SUBCUT SCH (05:24)
[2020-05-31 06:32] LABS: ABSOLUTE LYMPHOCYTES (AUTO) 0.5 10^3/uL (0.5-4.7); ABSOLUTE MONOCYTES (AUTO) 0.9 10^3/uL (0.1-1.4); ABSOLUTE NEUT (AUTO) 4.5 10^3/uL (1.7-8.2); BASOPHILS % (AUTO) 0.3 % (0-2); HEMATOCRIT 40.6 % (37.9-51.0); HEMOGLOBIN 13.8 g/dL (13.5-17.0); MEAN CORPUSCULAR HEMOGLOBIN 28.6 pg (27.0-33.4); MEAN CORPUSCULAR HGB CONC 34.1 g/dL (32.0-36.0); MEAN CORPUSCULAR VOLUME 84 fl (80-97); MONOCYTES % (AUTO) 14.5 % (3-13); PLATELET COUNT 230 10^3/uL (150-450); RED BLOOD COUNT 4.84 10^6/uL (4.35-5.55); RED CELL DISTRIBUTION WIDTH 15.2 % (11.5-14.0); SEGMENTED NEUTROPHILS % (AUTO) 76.2 % (42-78); TOTAL CELLS COUNTED % (AUTO) 100 %; WHITE BLOOD COUNT 5.9 10^3/uL (4.0-10.5)
[2020-05-31 06:50] LABS: ALBUMIN 3.5 g/dL (3.5-5.0); ALKALINE PHOSPHATASE 52 U/L (38-126); ANION GAP 10 (5-19); ASPARTATE AMINO TRANSFERASE 51 U/L (17-59); BILIRUBIN,DIRECT 0.3 mg/dL (0.0-0.4); BILIRUBIN,TOTAL 0.7 mg/dL (0.2-1.3); BLOOD UREA NITROGEN 22 mg/dL (7-20); CALCIUM 8.9 mg/dL (8.4-10.2); CARBON DIOXIDE 23 mmol/L (22-30); CHLORIDE 104 mmol/L (98-107); CREATINE KINASE 106 U/L (55-170); GLUCOSE 130 mg/dL (75-110); POTASSIUM 4.7 mmol/L (3.6-5.0); TOTAL PROTEIN 6.4 g/dL (6.3-8.2)
[2020-05-31 07:05] LABS: C-REACTIVE PROTEIN 132.9 mg/L (<10.0)
[2020-05-31] MEDS ORDERED: ALBUTEROL SULFATE HFA (90 MCG/PUFF) 8 GM MDI (1 MDI/ER DISP) IH PRN (08:14)
[2020-05-31] MEDS: CHOLECALCIFEROL (D3) 1,000 UNIT (25 MCG) TABLET PO SCH (09:04)
[2020-05-31] MEDS: ASPIRIN 81 MG TABLET, ENT COATED PO SCH (09:04)
[2020-05-31] MEDS: LOSARTAN POTASSIUM 25 MG TABLET PO SCH (09:08)
[2020-05-31] MEDS: GLIPIZIDE 5 MG TABLET PO SCH ×2 (09:08→18:35)
[2020-05-31] MEDS: INSULIN LISPRO 100 UNIT/ML 3 ML VIAL SUBCUT SCH ×4 (09:08→22:08)
[2020-05-31] MEDS: ZINC SULFATE 220 MG CAPSULE PO SCH (09:08)
[2020-05-31] MEDS: FAMOTIDINE 20 MG TABLET PO SCH ×2 (09:08→22:08)
[2020-05-31] MEDS: METOPROLOL TARTRATE 25 MG TABLET PO SCH (09:29)
[2020-05-31] MEDS: CETIRIZINE 10 MG TABLET PO SCH (09:29)
[2020-05-31] MEDS: HYDROCHLOROTHIAZIDE 12.5 MG TABLET PO SCH (09:29)
[2020-05-31] MEDS: FERROUS SULFATE 325 MG TABLET PO SCH (09:29)
[2020-05-31] MEDS: METHYLPREDNISOLONE INJ 40 MG/1 ML SDV IV SCH ×2 (09:29→22:08)
[2020-05-31] MEDS: FOLIC ACID 1 MG TABLET PO SCH (09:29)
[2020-05-31] MEDS: ASCORBIC ACID 500 MG TABLET PO SCH ×2 (09:29→18:35)
[2020-05-31] MEDS ORDERED: DEXAMETHASONE SOD PHOS INJ 10 MG/1 ML VIAL IV SCH (10:00)
[2020-05-31] MEDS: BENZONATATE 100 MG CAPSULE PO SCH ×2 (13:28→22:08)
[2020-05-31] MEDS: REMDESIVIR 100 MG in NORMAL SALINE 250 ML IV SCH (13:28)
[2020-05-31] MEDS ORDERED: NORMAL SALINE 1000 ML 1,000 ML IV PRN (16:04)
--- NOTE | 2020-05-31 16:13 | PDOC PROGRESS REPORT ---
Subjective Date:: 05/31/20 Subjective:: Patient feels the same. He is not having much shortness of breath. Denies any fever or chills. Reason For Visit: COVID PNA, HYPOXIA Physical Exam Vital Signs: Temp Pulse Resp BP Pulse Ox 97.9 F 96 22 H 146/77 H 90 L 05/31/20 03:54 05/31/20 03:54 05/31/20 03:54 05/31/20 03:54 05/31/20 03:54 Intake & Output 05/30/20 05/31/20 06/01/20 06:59 06:59 06:59 Intake Total 1250 Output Total 350 Balance 900 Weight 81.3 kg General appearance: PRESENT: no acute distress, cooperative Neck exam: ABSENT: JVD Respiratory exam: PRESENT: crackles, symmetrical, unlabored. ABSENT: tachypnea, wheezes Cardiovascular exam: PRESENT: RRR, +S1, +S2. ABSENT: tachycardia GI/Abdominal exam: PRESENT: soft. ABSENT: rebound, rigid, tenderness Neurological exam: PRESENT: alert, awake, oriented to person, oriented to place, oriented to time Results Laboratory Results: 05/31/20 05:52 05/31/20 05:52 05/30/20 05/31/20 05/31/20 14:30 05:52 05:52 WBC 5.9 RBC 4.84 Hgb 13.8 Hct 40.6 MCV 84 MCH 28.6 MCHC 34.1 RDW 15.2 H Plt Count 230 Seg Neutrophils % 76.2 Sodium 137.1 Potassium 4.7 Chloride 104 Carbon Dioxide 23 Anion Gap 10 BUN 22 H Creatinine 1.30 H Est GFR ( Amer) > 60 Glucose 130 H Lactic Acid Calcium 8.9 Ferritin 550.00 H Total Bilirubin 0.7 AST 51 Alkaline Phosphatase 52 C-Reactive Protein 132.9 H Total Protein 6.4 Albumin 3.5 Urine Color YELLOW Urine Appearance SLIGHTLY-CLOUDY Urine pH 5.0 Ur Specific [place] 1.056 Urine Protein 100 H Urine Glucose (UA) 50 H Urine Ketones NEGATIVE Urine Blood NEGATIVE Urine Nitrite NEGATIVE Ur Leukocyte Esterase NEGATIVE Urine WBC (Auto) 0 Urine RBC (Auto) 1 05/31/20 05:52 WBC RBC Hgb Hct MCV MCH MCHC RDW Plt Count Seg Neutrophils % Sodium Potassium Chloride Carbon Dioxide Anion Gap BUN Creatinine Est GFR ( Amer) Glucose Lactic Acid 0.9 Calcium Ferritin Total Bilirubin AST Alkaline Phosphatase C-Reactive Protein Total Protein Albumin Urine Color Urine Appearance Urine pH Ur Specific [place] Urine Protein Urine Glucose (UA) Urine Ketones Urine Blood Urine Nitrite Ur Leukocyte Esterase Urine WBC (Auto) Urine RBC (Auto) 05/30/20 05/30/20 05/31/20 09:31 09:31 05:52 Creatine Kinase 106 Troponin I < 0.012 NT-Pro-B Natriuret Pep 26 Impressions: Chest X-Ray 05/30/20 09:16 IMPRESSION: Slight increase in basilar interstitial airspace disease when compared to prior exam. Chest/Abdomen CTA 05/30/20 09:26 IMPRESSION: Patchy bilateral airspace disease most marked in the periphery consistent with Coban 19. Probable underlying interstitial fibrosis. No pulmonary emboli. Mediastinal and right hilar adenopathy this could be reactive or neoplastic. Assessment and Plan - Diagnosis (1) Pneumonia due to COVID-19 virus Is this a current diagnosis for this admission?: Yes Plan: On ivermectin, Decadron, remdesivir, vitamin and zinc supplements, therapeutic Lovenox Isolation (2) Acute respiratory failure with hypoxia Is this a current diagnosis for this admission?: Yes Plan: On 3 L nasal cannula (3) CKD (chronic kidney disease) stage 3, GFR 30-59 ml/min Is this a current diagnosis for this admission?: Yes Plan: Creatinine improved. We will try another liter of IV fluids today and check renal function in the morning (4) Type 2 diabetes mellitus with hyperglycemia Qualifiers: Diabetes mellitus buttermaker continuous churn insulin use: without intermediate use Qualified Code(s): E11.65 - Type 2 diabetes mellitus with hyperglycemia Is this a current diagnosis for this admission?: Yes Plan: Takes metformin and glipizide at home. Resume glipizide. Hold Metformin for 48 hours given contrast study. Sliding scale insulin. Diabetic diet (5) Lactic acid acidosis Is this a current diagnosis for this admission?: Yes Plan: Resolved (6) Weakness Is this a current diagnosis for this admission?: Yes Plan: Likely another effect of patient's COVID-19 infection. Has led to multiple falls. We will have physical therapy evaluate (7) PVC (premature ventricular contraction) Is this a current diagnosis for this admission?: Yes Plan: chronic - Time Time Spent with patient: Less than 15 minutes Anticipated Discharge Disposition: Home, Self Care Anticipated Discharge Timeframe: unknown
[2020-05-31] MEDS: ENOXAPARIN SODIUM INJ 80 MG/0.8 ML DISP.SYRIN SUBCUT SCH (18:35)
[2020-05-31] MEDS: MAG HYDROX/AL HYDROX/SIMETH SUSP 30 ML UDCUP PO PRN (22:08)
[2020-05-31] MEDS: ATORVASTATIN CALCIUM 10 MG TABLET PO SCH (22:08)
[2020-06-01] MEDS: ALBUTEROL SULFATE HFA (90 MCG/PUFF) 8 GM MDI IH SCH ×4 (00:10→18:05)
[2020-06-01] MEDS: BENZONATATE 100 MG CAPSULE PO SCH ×3 (05:33→21:37)
[2020-06-01] MEDS: ENOXAPARIN SODIUM INJ 80 MG/0.8 ML DISP.SYRIN SUBCUT SCH ×2 (05:33→18:04)
[2020-06-01 06:55] LABS: HEMATOCRIT 41.9 % (37.9-51.0); HEMOGLOBIN 14.6 g/dL (13.5-17.0); MEAN CORPUSCULAR HGB CONC 34.9 g/dL (32.0-36.0); MEAN CORPUSCULAR VOLUME 83 fl (80-97); PLATELET COUNT 280 10^3/uL (150-450); RED BLOOD COUNT 5.04 10^6/uL (4.35-5.55); RED CELL DISTRIBUTION WIDTH 15.1 % (11.5-14.0)
[2020-06-01 07:30] LABS: ANION GAP 12 (5-19); BLOOD UREA NITROGEN 25 mg/dL (7-20); CALCIUM 9.2 mg/dL (8.4-10.2); CARBON DIOXIDE 22 mmol/L (22-30); CHLORIDE 101 mmol/L (98-107); CREATINE KINASE 81 U/L (55-170); GLUCOSE 210 mg/dL (75-110); POTASSIUM 4.8 mmol/L (3.6-5.0)
[2020-06-01] MEDS: CETIRIZINE 10 MG TABLET PO SCH (09:45)
[2020-06-01] MEDS: LOSARTAN POTASSIUM 25 MG TABLET PO SCH (09:45)
[2020-06-01] MEDS: METOPROLOL TARTRATE 25 MG TABLET PO SCH (09:45)
[2020-06-01] MEDS: ZINC SULFATE 220 MG CAPSULE PO SCH (09:45)
[2020-06-01] MEDS: CHOLECALCIFEROL (D3) 1,000 UNIT (25 MCG) TABLET PO SCH (09:45)
[2020-06-01] MEDS: FERROUS SULFATE 325 MG TABLET PO SCH (09:45)
[2020-06-01] MEDS: GLIPIZIDE 5 MG TABLET PO SCH ×2 (09:45→16:12)
[2020-06-01] MEDS: HYDROCHLOROTHIAZIDE 12.5 MG TABLET PO SCH (09:45)
[2020-06-01] MEDS: FAMOTIDINE 20 MG TABLET PO SCH ×2 (09:45→21:37)
[2020-06-01] MEDS: FOLIC ACID 1 MG TABLET PO SCH (09:45)
[2020-06-01] MEDS: ASPIRIN 81 MG TABLET, ENT COATED PO SCH (09:46)
[2020-06-01] MEDS: INSULIN LISPRO 100 UNIT/ML 3 ML VIAL SUBCUT SCH ×4 (09:46→21:38)
[2020-06-01] MEDS: METHYLPREDNISOLONE INJ 40 MG/1 ML SDV IV SCH ×2 (10:11→21:38)
[2020-06-01] MEDS: ASCORBIC ACID 500 MG TABLET PO SCH ×2 (10:12→18:04)
[2020-06-01] MEDS: REMDESIVIR 100 MG in NORMAL SALINE 250 ML IV SCH (12:52)
[2020-06-01] MEDS: IVERMECTIN 3 MG TABLET PO SCH (16:12)
[2020-06-01 17:03] LABS: APPEARANCE,URINE CLEAR; BILIRUBIN,URINE NEGATIVE (NEGATIVE); COLOR,URINE YELLOW; GLUCOSE, URINE NEGATIVE (NEGATIVE); KETONES,URINE NEGATIVE (NEGATIVE); LEUKOCYTE ESTERASE,URINE NEGATIVE (NEGATIVE); NITRITE,URINE NEGATIVE (NEGATIVE); PROTEIN,URINE 30 mg/dL (NEGATIVE); URINE SPECIFIC GRAVITY 1.013; UROBILINOGEN,URINE NEGATIVE mg/dL (<2.0)
--- NOTE | 2020-06-01 18:39 | PDOC PROGRESS REPORT ---
Subjective Date:: 06/01/20 Subjective:: No complaints today. No savage or SOB. Ambulates freely. Reason For Visit: COVID PNA, HYPOXIA Physical Exam Vital Signs: Temp Pulse Resp BP Pulse Ox 97.5 F 80 22 H 124/66 86 L 06/01/20 10:00 06/01/20 14:00 06/01/20 09:03 06/01/20 09:03 06/01/20 09:03 Intake & Output 05/31/20 06/01/20 06/02/20 06:59 06:59 06:59 Intake Total 1250 790 Output Total 350 1450 Balance 900 -660 Weight 81.3 kg 84.3 kg General appearance: PRESENT: no acute distress, cooperative Neck exam: ABSENT: JVD Respiratory exam: PRESENT: symmetrical, unlabored. ABSENT: accessory muscle use, tachypnea, wheezes Cardiovascular exam: PRESENT: RRR, +S1, +S2. ABSENT: tachycardia GI/Abdominal exam: PRESENT: soft. ABSENT: tenderness Results Laboratory Results: 06/01/20 06:11 06/01/20 06:11 06/01/20 06/01/20 06/01/20 06:11 06:11 16:20 WBC 7.0 RBC 5.04 Hgb 14.6 Hct 41.9 MCV 83 MCH 29.0 MCHC 34.9 RDW 15.1 H Plt Count 280 Sodium 135.4 L Potassium 4.8 Chloride 101 Carbon Dioxide 22 Anion Gap 12 BUN 25 H Creatinine 1.31 H Est GFR ( Amer) > 60 Glucose 210 H Calcium 9.2 Urine Color YELLOW Urine Appearance CLEAR Urine pH 5.0 Ur Specific [place] 1.013 Urine Protein 30 H Urine Glucose (UA) NEGATIVE Urine Ketones NEGATIVE Urine Blood NEGATIVE Urine Nitrite NEGATIVE Ur Leukocyte Esterase NEGATIVE Urine RBC (Auto) 0 05/30/20 05/30/20 05/31/20 09:31 09:31 05:52 Creatine Kinase 106 Troponin I < 0.012 NT-Pro-B Natriuret Pep 26 06/01/20 06:11 Creatine Kinase 81 Troponin I NT-Pro-B Natriuret Pep Impressions: Chest X-Ray 05/30/20 09:16 IMPRESSION: Slight increase in basilar interstitial airspace disease when compared to prior exam. Chest/Abdomen CTA 05/30/20 09:26 IMPRESSION: Patchy bilateral airspace disease most marked in the periphery consistent with Coban 19. Probable underlying interstitial fibrosis. No pulmonary emboli. Mediastinal and right hilar adenopathy this could be reactive or neoplastic. Assessment and Plan - Diagnosis (1) Pneumonia due to COVID-19 virus Is this a current diagnosis for this admission?: Yes Plan: On ivermectin, Decadron, remdesivir, vitamin and zinc supplements, therapeutic Lovenox Isolation (2) Acute respiratory failure with hypoxia Is this a current diagnosis for this admission?: Yes Plan: On simple facemask 6L with spo2 of 94% this evening. Encourage OOB and ambulation. (3) CKD (chronic kidney disease) stage 3, GFR 30-59 ml/min Is this a current diagnosis for this admission?: Yes Plan: Creatinine improved seems at baseline now around 1.3 (4) Type 2 diabetes mellitus with hyperglycemia Qualifiers: Diabetes mellitus petroleum terminal plant operator insulin use: without usp use Qualified Code(s): E11.65 - Type 2 diabetes mellitus with hyperglycemia Is this a current diagnosis for this admission?: Yes (5) Lactic acid acidosis Is this a current diagnosis for this admission?: Yes Plan: Resolved (6) Weakness Is this a current diagnosis for this admission?: Yes (7) PVC (premature ventricular contraction) Is this a current diagnosis for this admission?: Yes - Time Time Spent with patient: Less than 15 minutes Anticipated Discharge Disposition: Home with Home Health Anticipated Discharge Timeframe: within 72 hours
[2020-06-01] MEDS: ATORVASTATIN CALCIUM 10 MG TABLET PO SCH (21:37)
[2020-06-02] MEDS: ALBUTEROL SULFATE HFA (90 MCG/PUFF) 8 GM MDI IH SCH ×4 (01:40→17:30)
[2020-06-02] MEDS: ENOXAPARIN SODIUM INJ 80 MG/0.8 ML DISP.SYRIN SUBCUT SCH (05:09)
[2020-06-02] MEDS: BENZONATATE 100 MG CAPSULE PO SCH ×3 (05:09→21:23)
[2020-06-02 06:07] LABS: C-REACTIVE PROTEIN 33.2 mg/L (<10.0)
[2020-06-02 06:52] LABS: ALBUMIN 3.5 g/dL (3.5-5.0); ALKALINE PHOSPHATASE 58 U/L (38-126); ANION GAP 12 (5-19); ASPARTATE AMINO TRANSFERASE 54 U/L (17-59); BILIRUBIN,DIRECT 0.3 mg/dL (0.0-0.4); BILIRUBIN,TOTAL 0.9 mg/dL (0.2-1.3); BLOOD UREA NITROGEN 31 mg/dL (7-20); CALCIUM 9.4 mg/dL (8.4-10.2); CARBON DIOXIDE 22 mmol/L (22-30); CHLORIDE 101 mmol/L (98-107); GLUCOSE 225 mg/dL (75-110); POTASSIUM 4.9 mmol/L (3.6-5.0); TOTAL PROTEIN 6.4 g/dL (6.3-8.2)
--- NOTE | 2020-06-02 07:50 | EKG REPORT ---
SEVERITY:- ABNORMAL ECG - SINUS RHYTHM VENTRICULAR TRIGEMINY PROBABLE LEFT ATRIAL ABNORMALITY : Confirmed by: Serg Borges MD 02-Jun-2020 07:50:17
[2020-06-02] MEDS: GLIPIZIDE 5 MG TABLET PO SCH ×2 (08:32→17:29)
[2020-06-02] MEDS: INSULIN LISPRO 100 UNIT/ML 3 ML VIAL SUBCUT SCH ×4 (08:32→21:23)
[2020-06-02] MEDS: METHYLPREDNISOLONE INJ 40 MG/1 ML SDV IV SCH ×3 (08:35→21:23)
[2020-06-02] MEDS: ASCORBIC ACID 500 MG TABLET PO SCH ×2 (11:31→17:29)
[2020-06-02] MEDS: ZINC SULFATE 220 MG CAPSULE PO SCH (11:31)
[2020-06-02] MEDS: HYDROCHLOROTHIAZIDE 12.5 MG TABLET PO SCH (11:31)
[2020-06-02] MEDS: LOSARTAN POTASSIUM 25 MG TABLET PO SCH (11:31)
[2020-06-02] MEDS: CETIRIZINE 10 MG TABLET PO SCH (11:32)
[2020-06-02] MEDS: METOPROLOL TARTRATE 25 MG TABLET PO SCH ×2 (11:32→21:23)
[2020-06-02] MEDS: FERROUS SULFATE 325 MG TABLET PO SCH (11:32)
[2020-06-02] MEDS: CHOLECALCIFEROL (D3) 1,000 UNIT (25 MCG) TABLET PO SCH (11:32)
[2020-06-02] MEDS: FAMOTIDINE 20 MG TABLET PO SCH ×2 (11:32→21:23)
[2020-06-02] MEDS: ASPIRIN 81 MG TABLET, ENT COATED PO SCH (11:32)
[2020-06-02] MEDS: FOLIC ACID 1 MG TABLET PO SCH (11:32)
[2020-06-02] MEDS: REMDESIVIR 100 MG in NORMAL SALINE 250 ML IV SCH (11:34)
[2020-06-02] MEDS: ENOXAPARIN SODIUM INJ 40 MG/0.4 ML DISP.SYRIN SUBCUT SCH (17:27)
--- NOTE | 2020-06-02 17:50 | PDOC PROGRESS REPORT ---
Subjective Date:: 06/02/20 Subjective:: Patient continues to feel comfortable. However his oxygen requirement has gone up. He denies any chest pain. Ambulated with me while in the room. Reason For Visit: COVID PNA, HYPOXIA Physical Exam Vital Signs: Temp Pulse Resp BP Pulse Ox 98.8 F 96 18 152/66 H 99 06/02/20 16:00 06/02/20 16:00 06/02/20 16:00 06/02/20 16:00 06/02/20 16:00 Intake & Output 06/01/20 06/02/20 06/03/20 06:59 06:59 06:59 Intake Total 790 1170 720 Output Total 1450 1275 400 Balance -660 -105 320 Weight 84.3 kg 84.3 kg General appearance: PRESENT: no acute distress, cooperative Neck exam: ABSENT: JVD Respiratory exam: PRESENT: crackles, symmetrical, unlabored. ABSENT: tachypnea, wheezes Cardiovascular exam: PRESENT: RRR, +S1, +S2. ABSENT: tachycardia GI/Abdominal exam: PRESENT: soft. ABSENT: rebound, rigid, tenderness Extremities exam: ABSENT: pedal edema Neurological exam: PRESENT: alert, awake, oriented to person, oriented to place, oriented to time, oriented to situation Psychiatric exam: ABSENT: agitated, anxious Results Laboratory Results: 06/01/20 06:11 06/02/20 05:12 06/02/20 06/02/20 05:12 05:12 Sodium 134.9 L Potassium 4.9 Chloride 101 Carbon Dioxide 22 Anion Gap 12 BUN 31 H Creatinine 1.30 H Est GFR ( Amer) > 60 Glucose 225 H Calcium 9.4 Magnesium 2.1 Ferritin 662.00 H Total Bilirubin 0.9 AST 54 Alkaline Phosphatase 58 C-Reactive Protein 33.2 H Total Protein 6.4 Albumin 3.5 05/30/20 05/30/20 05/31/20 09:31 09:31 05:52 Creatine Kinase 106 Troponin I < 0.012 NT-Pro-B Natriuret Pep 26 06/01/20 06/02/20 06:11 05:12 Creatine Kinase 81 51 L Troponin I NT-Pro-B Natriuret Pep Impressions: Chest X-Ray 05/30/20 09:16 IMPRESSION: Slight increase in basilar interstitial airspace disease when compared to prior exam. Chest/Abdomen CTA 05/30/20 09:26 IMPRESSION: Patchy bilateral airspace disease most marked in the periphery consistent with Coban 19. Probable underlying interstitial fibrosis. No pulmonary emboli. Mediastinal and right hilar adenopathy this could be reactive or neoplastic. Assessment and Plan - Diagnosis (1) Pneumonia due to COVID-19 virus Is this a current diagnosis for this admission?: Yes Plan: Status post ivermectin. Ferritin is going up-we will switch from Decadron to Solu-Medrol Continue remdesivir Continue vitamin and zinc supplements high prophylactic dose Lovenox Isolation (2) Acute respiratory failure with hypoxia Is this a current diagnosis for this admission?: Yes Plan: Hypoxia has worsened. Now requiring Oxymizer at 15 L. Will monitor closely. Not in respiratory distress however. (3) CKD (chronic kidney disease) stage 3, GFR 30-59 ml/min Is this a current diagnosis for this admission?: Yes Plan: Creatinine seems to be at baseline now around 1.3 (4) Type 2 diabetes mellitus with hyperglycemia Qualifiers: Diabetes mellitus jail insulin use: without jail use Qualified Code(s): E11.65 - Type 2 diabetes mellitus with hyperglycemia Is this a current diagnosis for this admission?: Yes Plan: Takes metformin and glipizide at home. Continue glipizide and sliding scale insulin. Diabetic diet (5) Lactic acid acidosis Is this a current diagnosis for this admission?: Yes Plan: Resolved (6) PVC (premature ventricular contraction) Is this a current diagnosis for this admission?: Yes Plan: He will need she has history of irregular heart beat. However notably first time I have seen this on his EKG was a few days before admission. He does have an ongoing infection which could contribute. Increase Lopressor to twice daily. Electrolytes are adequate. Cardiology consulted. (7) Weakness Is this a current diagnosis for this admission?: Yes - Time Time Spent with patient: 15-24 minutes Anticipated Discharge Disposition: Home, Self Care Anticipated Discharge Timeframe: Unknown
[2020-06-02] MEDS ORDERED: ENOXAPARIN SODIUM INJ 80 MG/0.8 ML DISP.SYRIN SUBCUT SCH (18:00)
[2020-06-02] MEDS: ATORVASTATIN CALCIUM 10 MG TABLET PO SCH (21:23)
[2020-06-03] MEDS: ALBUTEROL SULFATE HFA (90 MCG/PUFF) 8 GM MDI IH SCH ×4 (00:35→17:34)
[2020-06-03] MEDS: ENOXAPARIN SODIUM INJ 40 MG/0.4 ML DISP.SYRIN SUBCUT SCH ×2 (05:09→17:32)
[2020-06-03] MEDS: METHYLPREDNISOLONE INJ 40 MG/1 ML SDV IV SCH ×3 (05:10→21:49)
[2020-06-03] MEDS: BENZONATATE 100 MG CAPSULE PO SCH ×3 (05:10→21:50)
[2020-06-03] MEDS: FOLIC ACID 1 MG TABLET PO SCH (09:04)
[2020-06-03] MEDS: CHOLECALCIFEROL (D3) 1,000 UNIT (25 MCG) TABLET PO SCH (09:04)
[2020-06-03] MEDS: HYDROCHLOROTHIAZIDE 12.5 MG TABLET PO SCH (09:04)
[2020-06-03] MEDS: FERROUS SULFATE 325 MG TABLET PO SCH (09:04)
[2020-06-03] MEDS: ASCORBIC ACID 500 MG TABLET PO SCH ×2 (09:04→17:32)
[2020-06-03] MEDS: FAMOTIDINE 20 MG TABLET PO SCH ×2 (09:04→21:49)
[2020-06-03] MEDS: ZINC SULFATE 220 MG CAPSULE PO SCH (09:04)
[2020-06-03] MEDS: LOSARTAN POTASSIUM 25 MG TABLET PO SCH (09:05)
[2020-06-03] MEDS: METOPROLOL TARTRATE 25 MG TABLET PO SCH ×2 (09:05→21:50)
[2020-06-03] MEDS: ASPIRIN 81 MG TABLET, ENT COATED PO SCH (09:05)
[2020-06-03] MEDS: INSULIN LISPRO 100 UNIT/ML 3 ML VIAL SUBCUT SCH ×4 (09:05→21:49)
[2020-06-03] MEDS: GLIPIZIDE 5 MG TABLET PO SCH ×2 (09:05→17:32)
[2020-06-03] MEDS: CETIRIZINE 10 MG TABLET PO SCH (09:05)
[2020-06-03] MEDS ORDERED: INSULIN GLARGINE,HUM.REC.ANLOG 1,000 UNIT/10 ML VIAL SUBCUT SCH (10:00)
--- NOTE | 2020-06-03 10:33 | PDOC CONSULTATION ---
Consultation Consult Date: 06/03/20 Attending physician:: MILANA HUFFMAN Provider Consulted: MERARI ADKINS Consult reason:: Frequent PVC History of Present Illness Admission Date/PCP: 05/30/20 11:56 JALIL DELA CRUZ Patient complains of: Dyspnea History of Present Illness: JOSE GAMEZ is a 69 year old male With the following active problems 1. Diabetes mellitus 2. Systemic hypertension 3. COVID-19 pneumonia 4. Hypoxic respiratory failure 5. Chronic kidney disease 69-year-old male with problems as above with been admitted to the hospital on account of COVID-19 respiratory infection with hypoxic respiratory failure. Admits to medical problems including hypertension and diabetes mellitus. No prior cardiac problems reported. Specifically there is no report of coronary artery disease or myocardial infarction. Patient reports a history of irregular heartbeat although further details not very forthcoming. He is not on systemic anticoagulation. Does not report any recent cardiac work-up. Does not report any chest pain. Presently short of breath and is on supplemental oxygen. He does admit to some fatigue. Does not smoke cigarettes or use alcohol. He is retired. No familial illnesses reported Review of systems is positive for history of irregular heartbeat. Respiratory distress and dyspnea is reported. No chest pain is reported at the moment. No syncope is reported. Full 11 review systems was asked. Pertinent positives noted here in the HPI all systems appear to be negative. Past Medical History Cardiac Medical History: Reports: Coronary Artery Disease - 2 stents in legs ', Hyperlipidema, Hypertension - meds x many yrs, Peripheral Vascular Disease Denies: DVT, Myocardial Infarction Pulmonary Medical History: Reports: Pneumonia Denies: Asthma, Bronchitis, Chronic Obstructive Pulmonary Disease (COPD) - lung collapsed 1983 ,surgery 84, Tuberculosis Neurological Medical History: Denies: Seizures Endocrine Medical History: Reports: Diabetes Mellitus Type 2 GI Medical History: Reports: Hiatal Hernia Musculoskeltal Medical History: Reports: Arthritis - knees Hematology: Denies: Anemia Past Surgical History Past Surgical History: Reports: Orthopedic Surgery - left knee surgery, Vascular Surgery - AOTOBIFEM BYPASS 2004, Other - COLONOSCOPY 5-6 YRS AGO, NEG. Denies: Pacemaker Social History Smoking Status: Never Smoker Electronic Cigarette use?: No Number of Years Smokin Last Time Smoked: 13-14 YRS AGO Frequency of Alcohol Use: None Hx Recreational Drug Use: No Drugs: None Hx Prescription Drug Abuse: No - Advance Directive Resuscitation Status: Full Code Family History Family History: Reviewed & Not Pertinent, CVA - MOTHER Parental Family History Reviewed: Yes - No familial illnesses Children Family History Reviewed: NA Sibling(s) Family History Reviewed.: NA Medication/Allergy Home Medications: Glipizide 10 mg PO DAILY 10/13/11 Temazepam [Restoril] 30 mg PO QHS 10/13/11 Potassium Chloride [Klor-Con 10 Meq Tablet ER] 10 meq PO DAILY 10/17/12 Atorvastatin Calcium [Lipitor 10 mg Tablet] 10 mg PO DAILY 02/11/16 Cinnamon Bark [Cinnamon Bark 500 mg Capsule] 1,000 mg PO DAILY 02/11/16 Folic Acid 1 mg PO DAILY 07/05/16 Omeprazole 20 mg PO DAILY 07/05/16 Dexamethasone [Decadron 4 Mg Tablet] 4 mg PO DAILY #7 tablet MDD FILLED 05/27 FOR 7 DAY SUPPLY 05/26/20 Albuterol Sulfate [Proair HFA Inhalation Aerosol 8.5 gm MDI] 2 puff IH Q4HP PRN 05/30/20 Azithromycin [Zithromax 250 mg Tablet] 250 mg PO DAILY MDD FILLED 05/27 FOR 5 DAY SUPPLY 05/30/20 Benzonatate [Tessalon Perles 100 mg Capsule] 200 mg PO Q8 05/30/20 Cetirizine HCl [Zyrtec 10 mg Tablet] 10 mg PO DAILY 05/30/20 Ferrous Sulfate [Feosol 325 mg Tablet] 325 mg PO BID 05/30/20 Hydrochlorothiazide [Hydrodiuril 12.5 mg Tablet] 12.5 mg PO QAM 05/30/20 Metformin HCl [Glucophage 500 mg Tablet] 1,000 mg PO BIDACBS 05/30/20 Methotrexate Sodium [Rheumatrex 2.5 mg Tablet] 2.5 mg PO .QWEEKLY 05/30/20 Metoprolol Tartrate [Lopressor 25 mg Tablet] 25 mg PO DAILY 05/30/20 [place]-3/Dha/Epa/Fish Oil [Fish Oil 1,000 mg Softgel] 1,000 mg PO DAILY 05/30/20 Telmisartan 20 mg PO DAILY 05/30/20 Allergies/Adverse Reactions: amoxicillin [Amoxicillin] Allergy (Mild, Verified 05/30/20 16:14) diarrhea,vomiting,SOB Review of Systems Constitutional: PRESENT: as per HPI, fatigue, headache(s), other - Fatigue Eyes: PRESENT: as per HPI Ears: PRESENT: as per HPI Cardiovascular: PRESENT: other - Irregular heartbeat is reported. ABSENT: as per HPI, chest pain, dyspnea on exertion, edema, orthropnea, palpitations Respiratory: PRESENT: cough, dyspnea Gastrointestinal: ABSENT: as per HPI, abdominal pain, bloating, coffee ground emesis, constipation, diarrhea, dysphagia, heartburn, hematemesis, hematochezia, melena, nausea, vomiting, other Genitourinary: ABSENT: as per HPI, difficulty urinating, dysuria, hematuria, nocturia, other Neurological: ABSENT: as per HPI, abnormal gait, abnormal movements, abnormal speech, confusion, convulsions, dizziness, focal weakness, frequent falls, lack of coordination, memory loss, numbness, paresthesias, restless legs, syncope, tingling, tremor(s), vertigo, weakness, other Physical Exam Vital Signs: Temp Pulse Resp BP Pulse Ox 97.9 F 73 19 158/87 H 81 L 06/03/20 04:52 06/03/20 07:00 06/03/20 04:52 06/03/20 04:52 06/03/20 04:52 Intake & Output 06/02/20 06/03/20 06/04/20 06:59 06:59 06:59 Intake Total 1170 980 Output Total 1275 1256 Balance -105 -276 Weight 84.3 kg 84.5 kg General appearance: PRESENT: cooperative, mild distress, thin, well-developed, well-nourished Head exam: PRESENT: atraumatic, normocephalic Eye exam: PRESENT: conjunctiva pink Mouth exam: PRESENT: moist Respiratory exam: PRESENT: crackles, decreased breath sounds, symmetrical Cardiovascular exam: PRESENT: RRR, +S1, +S2 GI/Abdominal exam: PRESENT: soft Rectal exam: PRESENT: deferred Musculoskeletal exam: PRESENT: normal inspection Neurological exam: PRESENT: alert, awake, oriented to person, oriented to place, oriented to time, oriented to situation, CN II-XII grossly intact Psychiatric exam: PRESENT: appropriate affect Skin exam: PRESENT: dry, intact, normal color Results Laboratory Results: 06/01/20 06:11 06/02/20 05:12 05/30/20 05/30/20 05/31/20 09:31 09:31 05:52 Creatine Kinase 106 Troponin I < 0.012 NT-Pro-B Natriuret Pep 06/01/20 06/02/20 06/03/20 06:11 05:12 04:58 Creatine Kinase 81 51 L 30 L Troponin I NT-Pro-B Natriuret Pep EKG Comments: Lead EKG 06/02/2020 6:03 AM. Sinus rhythm, 87 bpm, frequent PVCs in a trigeminal pattern, likely outflow tract PVCs, left atrial abnormality, QTC is 429 ms Transthoracic echocardiogram 07/07/2016 left ventricular ejection fraction 55 to 60%. There is no aortic stenosis mentioned. Trace mitral regurgitation is mentioned RV is normal in size and function COVID-19 detected 05/26/2020 troponin negative x2 on 05/26/2020 and 05/30/2020 Impressions: Chest X-Ray 05/30/20 09:16 IMPRESSION: Slight increase in basilar interstitial airspace disease when compared to prior exam. Chest/Abdomen CTA 05/30/20 09:26 IMPRESSION: Patchy bilateral airspace disease most marked in the periphery consistent with Coban 19. Probable underlying interstitial fibrosis. No pulmonary emboli. Mediastinal and right hilar adenopathy this could be reactive or neoplastic. Assessment & Plan - Diagnosis (1) COVID-19 Is this a current diagnosis for this admission?: Yes Plan: Supportive care for COVID-19 pneumonia Supplemental oxygen (2) PVC (premature ventricular contraction) Is this a current diagnosis for this admission?: Yes Plan: Premature ventricular contractions noted on telemetry and on EKG These appear to be outflow tract PVCs Will require 24-hour Holter for quantitation of premature ventricular contractions It is possible that the PVC are occurring on account of myocardial irritation with concurrent ongoing viral infection with COVID-19. However patient also reports prior history of irregular heartbeat which could potentially have been due to premature ventricular contractions although patient is not quite knowledgeable regarding this At the present time he does not appear to be in heart failure clinically Would recommend obtaining transthoracic echocardiogram At the present time it would be reason to continue beta-blockade to suppress PVCs. Also make sure electrolytes including potassium and magnesium are within normal limits. (3) HTN (hypertension) Qualifiers: Hypertension type: essential hypertension Qualified Code(s): I10 - Essential (primary) hypertension Is this a current diagnosis for this admission?: Yes Plan: Continue losartan 25 mg daily Continue metoprolol tartrate 25 mg twice daily Continue hydrochlorothiazide 12.5 mg once daily (4) Dyslipidemia Is this a current diagnosis for this admission?: Yes Plan: Continue atorvastatin 10 mg daily (5) Diabetes mellitus type II, controlled Is this a current diagnosis for this admission?: Yes Plan: Diabetes mellitus Continue Lantus insulin Continue glipizide to 5 mg twice daily - Notes Notes: We will review echocardiogram. Further management of premature ventricular contractions will require outpatient Holter monitoring to quantitate PVCs to assess PVC burden which can help target therapy. At the present time patient does not seem to be symptomatic on account of PVCs.
[2020-06-03] MEDS: REMDESIVIR 100 MG in NORMAL SALINE 250 ML IV SCH (10:40)
[2020-06-03 11:18] LABS: ARTERIAL BLOOD FIO2 100%; ARTERIAL BLOOD H2CO3 0.95 mmol/L (1.05-1.35); ARTERIAL BLOOD HCO3 20.9 mmol/L (20-24); ARTERIAL BLOOD O2 SATURATION 93.1 % (94-98); ARTERIAL BLOOD PCO2 31.5 mmHg (35-45); ARTERIAL BLOOD PH 7.44 (7.35-7.45); ARTERIAL BLOOD PO2 62.7 mmHg (80-100); ARTERIAL BLOOD TOTAL CO2 21.9 mmol/L (23-27)
--- NOTE | 2020-06-03 17:48 | PDOC PROGRESS REPORT ---
Subjective Date:: 06/03/20 Subjective:: Still feels well but hypoxia has worsened. Reason For Visit: COVID PNA, HYPOXIA Physical Exam Vital Signs: Temp Pulse Resp BP Pulse Ox 97.5 F 73 18 134/79 H 92 06/03/20 11:26 06/03/20 11:26 06/03/20 11:26 06/03/20 11:26 06/03/20 13:39 Intake & Output 06/02/20 06/03/20 06/04/20 06:59 06:59 06:59 Intake Total 1170 980 Output Total 1275 1256 Balance -105 -276 Weight 84.3 kg 84.5 kg General appearance: PRESENT: no acute distress, cooperative Neck exam: ABSENT: JVD Respiratory exam: PRESENT: clear to auscultation aurora, symmetrical, unlabored. ABSENT: tachypnea, wheezes Cardiovascular exam: PRESENT: RRR, +S1, +S2. ABSENT: tachycardia GI/Abdominal exam: PRESENT: soft. ABSENT: rebound, rigid, tenderness Extremities exam: ABSENT: calf tenderness Neurological exam: PRESENT: alert, awake, oriented to person, oriented to place, oriented to time, oriented to situation Results Laboratory Results: 06/01/20 06:11 06/02/20 05:12 06/03/20 10:58 Carbonic Acid 0.95 L HCO3/H2CO3 Ratio 22:1 ABG pH 7.44 ABG pCO2 31.5 L ABG pO2 62.7 L ABG HCO3 20.9 ABG O2 Saturation 93.1 L ABG Base Excess -2.0 FiO2 100% 05/30/20 05/30/20 05/31/20 09:31 09:31 05:52 Creatine Kinase 106 Troponin I < 0.012 NT-Pro-B Natriuret Pep 06/01/20 06/02/20 06/03/20 06:11 05:12 04:58 Creatine Kinase 81 51 L 30 L Troponin I NT-Pro-B Natriuret Pep Impressions: Chest X-Ray 05/30/20 09:16 IMPRESSION: Slight increase in basilar interstitial airspace disease when compared to prior exam. Chest/Abdomen CTA 05/30/20 09:26 IMPRESSION: Patchy bilateral airspace disease most marked in the periphery consistent with Coban 19. Probable underlying interstitial fibrosis. No pulmonary emboli. Mediastinal and right hilar adenopathy this could be reactive or neoplastic. Assessment and Plan - Diagnosis (1) Pneumonia due to COVID-19 virus Is this a current diagnosis for this admission?: Yes Plan: Status post ivermectin, remedesvir. Continue Solu-Medrol Continue vitamin and zinc supplements high prophylactic dose Lovenox Discussed with patients (2) Acute respiratory failure with hypoxia Is this a current diagnosis for this admission?: Yes Plan: Hypoxia has worsened. Now requiring Oxymizer at 15 L. Will monitor closely. Not in respiratory distress however. (3) CKD (chronic kidney disease) stage 3, GFR 30-59 ml/min Is this a current diagnosis for this admission?: Yes Plan: Creatinine seems to be at baseline now around 1.3 (4) Type 2 diabetes mellitus with hyperglycemia Qualifiers: Diabetes mellitus manager terminal insulin use: without manager terminal use Qualified Code(s): E11.65 - Type 2 diabetes mellitus with hyperglycemia Is this a current diagnosis for this admission?: Yes Plan: Takes metformin and glipizide at home. Continue glipizide and sliding scale insulin. Diabetic diet. Still quite hyperglycemic likely from steroids. Will start lantus (5) PVC (premature ventricular contraction) Is this a current diagnosis for this admission?: Yes Plan: on lopressor. cards consulted. Echo tomorrow. (6) Lactic acid acidosis Is this a current diagnosis for this admission?: Yes (7) Weakness Is this a current diagnosis for this admission?: Yes - Time Time Spent with patient: 25-34 minutes Anticipated Discharge Disposition: Home, Self Care Anticipated Discharge Timeframe: unknown
[2020-06-03] MEDS: INSULIN GLARGINE,HUM.REC.ANLOG 1,000 UNIT/10 ML VIAL SUBCUT SCH (21:49)
[2020-06-03] MEDS: ATORVASTATIN CALCIUM 10 MG TABLET PO SCH (21:50)
[2020-06-04] MEDS: ALBUTEROL SULFATE HFA (90 MCG/PUFF) 8 GM MDI IH SCH ×4 (01:54→17:15)
[2020-06-04] MEDS: MAG HYDROX/AL HYDROX/SIMETH SUSP 30 ML UDCUP PO PRN (03:49)
[2020-06-04] MEDS: ENOXAPARIN SODIUM INJ 40 MG/0.4 ML DISP.SYRIN SUBCUT SCH (05:10)
[2020-06-04] MEDS: BENZONATATE 100 MG CAPSULE PO SCH ×3 (05:10→22:01)
[2020-06-04] MEDS: METHYLPREDNISOLONE INJ 40 MG/1 ML SDV IV SCH ×3 (05:11→22:01)
[2020-06-04 06:58] LABS: HEMATOCRIT 47.8 % (37.9-51.0); HEMOGLOBIN 16.3 g/dL (13.5-17.0); MEAN CORPUSCULAR HEMOGLOBIN 28.4 pg (27.0-33.4); MEAN CORPUSCULAR VOLUME 84 fl (80-97); PLATELET COUNT 420 10^3/uL (150-450); RED BLOOD COUNT 5.72 10^6/uL (4.35-5.55); RED CELL DISTRIBUTION WIDTH 15.3 % (11.5-14.0)
[2020-06-04 07:00] LABS: APPEARANCE,URINE SLIGHTLY-CLOUDY; BILIRUBIN,URINE NEGATIVE (NEGATIVE); COLOR,URINE YELLOW; GLUCOSE, URINE NEGATIVE (NEGATIVE); KETONES,URINE NEGATIVE (NEGATIVE); LEUKOCYTE ESTERASE,URINE NEGATIVE (NEGATIVE); NITRITE,URINE NEGATIVE (NEGATIVE); PROTEIN,URINE 30 mg/dL (NEGATIVE); URINE SPECIFIC GRAVITY 1.024; UROBILINOGEN,URINE NEGATIVE mg/dL (<2.0)
[2020-06-04 07:00] LABS: WHITE BLOOD COUNT 15.4 10^3/uL (4.0-10.5)
[2020-06-04] MEDS: METFORMIN HCL 500 MG TABLET PO SCH ×2 (08:20→17:15)
[2020-06-04] MEDS: INSULIN LISPRO 100 UNIT/ML 3 ML VIAL SUBCUT SCH ×4 (08:20→22:02)
[2020-06-04] MEDS: GLIPIZIDE 5 MG TABLET PO SCH ×2 (08:20→17:14)
[2020-06-04] MEDS: FAMOTIDINE 20 MG TABLET PO SCH ×2 (09:06→22:01)
[2020-06-04] MEDS: FERROUS SULFATE 325 MG TABLET PO SCH (09:06)
[2020-06-04] MEDS: HYDROCHLOROTHIAZIDE 12.5 MG TABLET PO SCH (09:06)
[2020-06-04] MEDS: CHOLECALCIFEROL (D3) 1,000 UNIT (25 MCG) TABLET PO SCH (09:06)
[2020-06-04] MEDS: METOPROLOL TARTRATE 25 MG TABLET PO SCH ×2 (09:06→22:01)
[2020-06-04] MEDS: ASCORBIC ACID 500 MG TABLET PO SCH ×2 (09:07→17:14)
[2020-06-04] MEDS: LOSARTAN POTASSIUM 25 MG TABLET PO SCH (09:07)
[2020-06-04] MEDS: ASPIRIN 81 MG TABLET, ENT COATED PO SCH (09:07)
[2020-06-04] MEDS: FOLIC ACID 1 MG TABLET PO SCH (09:07)
[2020-06-04] MEDS: CETIRIZINE 10 MG TABLET PO SCH (09:07)
[2020-06-04] MEDS: INSULIN GLARGINE,HUM.REC.ANLOG 1,000 UNIT/10 ML VIAL SUBCUT SCH ×3 (09:11→22:01)
[2020-06-04] MEDS: ZINC SULFATE 220 MG CAPSULE PO SCH (09:11)
--- NOTE | 2020-06-04 11:26 | PDOC PROGRESS REPORT ---
Subjective Date:: 06/04/20 Subjective:: Patient had gross hematuria today. He complains of the nasal oxygen drying out his nose too much. Reason For Visit: COVID PNA, HYPOXIA Physical Exam Vital Signs: Temp Pulse Resp BP Pulse Ox 97.3 F 75 20 132/53 H 89 L 06/04/20 07:56 06/04/20 07:41 06/04/20 07:41 06/04/20 07:41 06/04/20 07:41 Intake & Output 06/03/20 06/04/20 06/05/20 06:59 06:59 06:59 Intake Total 980 1160 Output Total 1256 2675 Balance -276 -1515 Weight 84.5 kg 85.1 kg General appearance: PRESENT: no acute distress, cooperative Neck exam: ABSENT: JVD Respiratory exam: PRESENT: symmetrical, unlabored. ABSENT: accessory muscle use, tachypnea Cardiovascular exam: PRESENT: irregular rhythm. ABSENT: bradycardia, RRR, tachycardia GI/Abdominal exam: PRESENT: soft. ABSENT: rebound, rigid, tenderness Neurological exam: PRESENT: alert, awake, oriented to person, oriented to place, oriented to time, oriented to situation Results Laboratory Results: 06/04/20 05:47 06/02/20 05:12 06/04/20 06/04/20 06/04/20 05:47 05:47 06:21 WBC 15.4 H D RBC 5.72 H Hgb 16.3 Hct 47.8 MCV 84 MCH 28.4 MCHC 34.0 RDW 15.3 H Plt Count 420 Ferritin 561.00 H C-Reactive Protein 10.0 Urine Color YELLOW Urine Appearance SLIGHTLY-CLOUDY Urine pH 6.0 Ur Specific [place] 1.024 Urine Protein 30 H Urine Glucose (UA) NEGATIVE Urine Ketones NEGATIVE Urine Blood LARGE H Urine Nitrite NEGATIVE Ur Leukocyte Esterase NEGATIVE Urine WBC (Auto) 73 Urine RBC (Auto) >182 05/30/20 09:31 Blood Blood Culture - Final NO GROWTH IN 5 DAYS 05/30/20 05/30/20 05/31/20 09:31 09:31 05:52 Creatine Kinase 106 Troponin I < 0.012 NT-Pro-B Natriuret Pep 26 06/01/20 06/02/20 06/03/20 06:11 05:12 04:58 Creatine Kinase 81 51 L 30 L Troponin I NT-Pro-B Natriuret Pep 06/04/20 05:47 Creatine Kinase 33 L Troponin I NT-Pro-B Natriuret Pep Impressions: Chest X-Ray 05/30/20 09:16 IMPRESSION: Slight increase in basilar interstitial airspace disease when compared to prior exam. Chest/Abdomen CTA 05/30/20 09:26 IMPRESSION: Patchy bilateral airspace disease most marked in the periphery consistent with Coban 19. Probable underlying interstitial fibrosis. No pulmonary emboli. Mediastinal and right hilar adenopathy this could be reactive or neoplastic. Assessment and Plan - Diagnosis (1) Pneumonia due to COVID-19 virus Is this a current diagnosis for this admission?: Yes (2) Acute respiratory failure with hypoxia Is this a current diagnosis for this admission?: Yes (3) CKD (chronic kidney disease) stage 3, GFR 30-59 ml/min Is this a current diagnosis for this admission?: Yes (4) Type 2 diabetes mellitus with hyperglycemia Qualifiers: Diabetes mellitus chcf insulin use: without chcf use Qualified Code(s): E11.65 - Type 2 diabetes mellitus with hyperglycemia Is this a current diagnosis for this admission?: Yes (5) PVC (premature ventricular contraction) Is this a current diagnosis for this admission?: Yes (6) Lactic acid acidosis Is this a current diagnosis for this admission?: Yes (7) Weakness Is this a current diagnosis for this admission?: Yes - Plan Summary Summary: Patient developed some gross hematuria last night. Was unable to see her body look this morning in his urinal but it was quite significant. His H&H shows stable hemoglobin. We will discontinue his Lovenox for now. SCDs only for prophylaxis. He is on 10 L Oxymizer but will try to bump it up to 12 to keep his sats at 90% or above. Continue with steroids. Resume Metformin. A1c today 7.2. Likely hyperglycemia is a lot from his steroids. Echo today to evaluate PVCs. - Time Time Spent with patient: 15-24 minutes Anticipated Discharge Disposition: Home, Self Care Anticipated Discharge Timeframe: unknown
[2020-06-04] MEDS: SODIUM CHLORIDE NASAL SPRAY 44 ML NASL SCH ×3 (12:08→22:03)
--- NOTE | 2020-06-04 18:49 | XCELERA REPORT ---
[address] [address] Transthoracic Echocardiogram Report Name: JOSE GAMEZ Age: 69 yrs Gender: Male : 1950 Patient Status: Inpatient Patient Location: [address] [place] [address] Study Date: 06/04/2020 10:22 AM History: COVID 19 Pneumonia Frequent PVC Height: 72 in Weight: 186 lb BSA: 2.1 m2 Procedure: A complete two-dimensional transthoracic echocardiogram was performed (2D, M-mode, spectral and color flow Doppler). The study was technically adequate with some images being suboptimal in quality. Reason For Study: Frequent PVCs Previous Evaluation: A previous study was performed on 07/07/2016 :LVEF was normal. Ordering Physician: MILANA HUFFMAN Performed By: Pravin Clark Interpretation Summary Left ventricular systolic function is normal. The Ejection Fraction estimate is 55-60% The right ventricle is normal in size and function. There is a mild amount of mitral regurgitation There is no aortic valve stenosis There is a trace amount of tricuspid regurgitation There is mild pulmonary hypertension by echo There is no pericardial effusion. MMode/2D Measurements & Calculations RVDd: 2.7 cm LVIDd: 4.3 cm FS: 33.4 % Ao root diam: 2.9 cm IVSd: 1.2 cm LVIDs: 2.9 cm EDV(Teich): 84.1 ml Ao root area: 6.7 cm2 LVPWd: 1.2 cm ESV(Teich): 31.6 ml LA dimension: 3.5 cm EF(Teich): 62.4 % Doppler Measurements & Calculations MV E max salome: MV P1/2t max salome: Ao V2 max: LV V1 max P.1 cm/sec 50.1 cm/sec 91.8 cm/sec 1.7 mmHg MV A max salome: MV P1/2t: 75.4 msec Ao max PG: LV V1 max: 96.0 cm/sec MVA(P1/2t): 2.9 cm2 3.4 mmHg 66.0 cm/sec MV E/A: 0.53 MV dec slope: 194.7 cm/sec2 MV dec time: 0.39 sec PA V2 max: PI end-d salome: TR max salome: MV P1/2t-pr_phl: 73.3 cm/sec 93.8 cm/sec 265.0 cm/sec 75.4 msec PA max PG: TR max P.1 mmHg 28.1 mmHg Left Ventricle The left ventricle is normal in size. There is moderate concentric left ventricular hypertrophy. Left ventricular systolic function is normal. The Ejection Fraction estimate is 55-60%. Doppler measurements suggest impaired left ventricular relaxation, which is associated with grade I/IV or mild diastolic dysfunction. No regional wall motion abnormalities noted. Right Ventricle The right ventricle is normal in size and function. Atria The right atrium is normal. The left atrium is borderline dilated. Mitral Valve Calcified mitral apparatus. There is a mild amount of mitral regurgitation. Aortic Valve The aortic valve is mildly calcified. The aortic valve is sclerotic, but shows no functional abnormality. The aortic valve opens well. The aortic valve is trileaflet. There is no aortic valve stenosis. No aortic regurgitation is present. Tricuspid Valve The tricuspid valve is normal in structure and function. There is no tricuspid stenosis. There is a trace amount of tricuspid regurgitation. Right ventricular systolic pressure is estimated to be elevated at 30-40mmHg. There is mild pulmonary hypertension by echo. Pulmonic Valve The pulmonic valve is normal in structure and function. There is no pulmonic valvular stenosis. There is a mild amount of pulmonic regurgitation. Great Vessels The aortic root is normal size. Effusions There is no pericardial effusion. : MILANA HUFFMAN Anil
[2020-06-04] MEDS: ATORVASTATIN CALCIUM 10 MG TABLET PO SCH (22:01)
[2020-06-05] MEDS: ALBUTEROL SULFATE HFA (90 MCG/PUFF) 8 GM MDI IH SCH ×4 (00:42→17:11)
[2020-06-05] MEDS: METHYLPREDNISOLONE INJ 40 MG/1 ML SDV IV SCH ×3 (05:18→22:24)
[2020-06-05] MEDS: BENZONATATE 100 MG CAPSULE PO SCH ×3 (05:18→22:24)
[2020-06-05 08:17] LABS: ALBUMIN 3.4 g/dL (3.5-5.0); ALKALINE PHOSPHATASE 51 U/L (38-126); ANION GAP 12 (5-19); ASPARTATE AMINO TRANSFERASE 38 U/L (17-59); BILIRUBIN,DIRECT 0.4 mg/dL (0.0-0.4); BILIRUBIN,TOTAL 0.9 mg/dL (0.2-1.3); BLOOD UREA NITROGEN 43 mg/dL (7-20); CALCIUM 9.6 mg/dL (8.4-10.2); CARBON DIOXIDE 19 mmol/L (22-30); CHLORIDE 103 mmol/L (98-107); GLUCOSE 187 mg/dL (75-110); TOTAL PROTEIN 6.2 g/dL (6.3-8.2)
[2020-06-05] MEDS: INSULIN LISPRO 100 UNIT/ML 3 ML VIAL SUBCUT SCH ×4 (08:45→22:20)
[2020-06-05] MEDS: METFORMIN HCL 500 MG TABLET PO SCH ×2 (08:45→17:10)
[2020-06-05] MEDS: GLIPIZIDE 5 MG TABLET PO SCH ×2 (08:45→17:10)
[2020-06-05] MEDS: FERROUS SULFATE 325 MG TABLET PO SCH (09:15)
[2020-06-05] MEDS: ASCORBIC ACID 500 MG TABLET PO SCH ×2 (09:16→17:10)
[2020-06-05] MEDS: HYDROCHLOROTHIAZIDE 12.5 MG TABLET PO SCH (09:16)
[2020-06-05] MEDS: CHOLECALCIFEROL (D3) 1,000 UNIT (25 MCG) TABLET PO SCH (09:16)
[2020-06-05] MEDS: FOLIC ACID 1 MG TABLET PO SCH (09:16)
[2020-06-05] MEDS: METOPROLOL TARTRATE 25 MG TABLET PO SCH ×2 (09:16→22:24)
[2020-06-05] MEDS: LOSARTAN POTASSIUM 25 MG TABLET PO SCH (09:17)
[2020-06-05] MEDS: ASPIRIN 81 MG TABLET, ENT COATED PO SCH (09:17)
[2020-06-05] MEDS: FAMOTIDINE 20 MG TABLET PO SCH ×2 (09:17→22:25)
[2020-06-05] MEDS: ZINC SULFATE 220 MG CAPSULE PO SCH (09:18)
[2020-06-05] MEDS: CETIRIZINE 10 MG TABLET PO SCH (09:18)
[2020-06-05] MEDS: INSULIN GLARGINE,HUM.REC.ANLOG 1,000 UNIT/10 ML VIAL SUBCUT SCH ×2 (09:18→22:25)
[2020-06-05] MEDS: SODIUM CHLORIDE NASAL SPRAY 44 ML NASL SCH ×4 (09:19→22:26)
--- NOTE | 2020-06-05 13:18 | PDOC PROGRESS REPORT ---
Subjective Date:: 06/05/20 Subjective:: Patient states he feels better. His hematuria has resolved. States his breathi ng is good. Wanting to know when he can go home. Reason For Visit: COVID PNA, HYPOXIA Physical Exam Vital Signs: Temp Pulse Resp BP Pulse Ox 97.5 F 75 18 118/81 94 06/05/20 08:22 06/05/20 08:22 06/05/20 08:22 06/05/20 08:22 06/05/20 08:22 Intake & Output 06/04/20 06/05/20 06/06/20 06:59 06:59 06:59 Intake Total 1160 1100 Output Total 2675 600 Balance -1515 500 Weight 85.1 kg 82.6 kg General appearance: PRESENT: no acute distress, cooperative Neck exam: ABSENT: JVD Respiratory exam: PRESENT: symmetrical, unlabored. ABSENT: accessory muscle use, tachypnea Cardiovascular exam: ABSENT: tachycardia GI/Abdominal exam: PRESENT: soft. ABSENT: tenderness Neurological exam: PRESENT: alert, awake, oriented to person, oriented to place, oriented to time Psychiatric exam: ABSENT: agitated, anxious Results Laboratory Results: 06/04/20 05:47 06/05/20 05:20 06/05/20 05:20 Sodium 134.2 L Potassium 5.0 Chloride 103 Carbon Dioxide 19 L Anion Gap 12 BUN 43 H Creatinine 1.35 H Est GFR ( Amer) > 60 Glucose 187 H Calcium 9.6 Magnesium 2.3 Total Bilirubin 0.9 AST 38 Alkaline Phosphatase 51 Total Protein 6.2 L Albumin 3.4 L 05/30/20 12:15 Blood Blood Culture - Final NO GROWTH IN 5 DAYS 05/30/20 09:31 Blood Blood Culture - Final NO GROWTH IN 5 DAYS 05/30/20 05/30/20 05/31/20 09:31 09:31 05:52 Creatine Kinase 106 Troponin I < 0.012 NT-Pro-B Natriuret Pep 06/01/20 06/02/20 06/03/20 06:11 05:12 04:58 Creatine Kinase 81 51 L 30 L Troponin I NT-Pro-B Natriuret Pep 06/04/20 06/05/20 05:47 05:20 Creatine Kinase 33 L 41 L Troponin I NT-Pro-B Natriuret Pep Impressions: Chest X-Ray 05/30/20 09:16 IMPRESSION: Slight increase in basilar interstitial airspace disease when compared to prior exam. Chest/Abdomen CTA 05/30/20 09:26 IMPRESSION: Patchy bilateral airspace disease most marked in the periphery consistent with Coban 19. Probable underlying interstitial fibrosis. No pulmonary emboli. Mediastinal and right hilar adenopathy this could be reactive or neoplastic. Assessment and Plan - Diagnosis (1) Pneumonia due to COVID-19 virus Is this a current diagnosis for this admission?: Yes (2) Acute respiratory failure with hypoxia Is this a current diagnosis for this admission?: Yes (3) CKD (chronic kidney disease) stage 3, GFR 30-59 ml/min Is this a current diagnosis for this admission?: Yes (4) Type 2 diabetes mellitus with hyperglycemia Qualifiers: Diabetes mellitus intermediate project manager insulin use: without intermediate project manager use Qualified Code(s): E11.65 - Type 2 diabetes mellitus with hyperglycemia Is this a current diagnosis for this admission?: Yes (5) PVC (premature ventricular contraction) Is this a current diagnosis for this admission?: Yes (6) Lactic acid acidosis Is this a current diagnosis for this admission?: Yes (7) Weakness Is this a current diagnosis for this admission?: Yes - Plan Summary Summary: Echocardiogram done yesterday was unremarkable. Evaluated by babysitter who recommends continuation of metoprolol at current dosing. His gross hematuria has resolved since discontinuation of Lovenox. We will use SCDs for DVT prophylaxis for now and encourage ambulation. His oxygenation is actually quite better and he is down to 5 L nasal cannula. We will continue to monitor him to see how his oxygen requirements go over the next couple of days. Continue steroids. - Time Time Spent with patient: Less than 15 minutes Anticipated Discharge Disposition: Home, Self Care Anticipated Discharge Timeframe: within 72 hours
--- NOTE | 2020-06-05 16:03 | Progress Note ---
Provider Note Provider Note: Transthoracic echocardiogram 06/04/2020 Left ventricular ejection fraction is estimated at 55 to 60% and is within normal range RV is normal in size and function There is no significant valve lesion There is mild pulmonary hypertension There is no pericardial effusion Asymptomatic premature ventricular contractions were noticed during this hospital admission which is primarily for COVID-19 viral infection and pneumonia. Chart review was performed and I also discussed the patient with the attending physician managing his care. Patient's respiratory status and hematuria which had occurred have all improved Would recommend suppression of PVCs with beta-winter therapy. Further management in terms of PVCs should involve an outpatient 24-hour ambulatory cardiac monitoring to quantitate the number of premature ventricular contractions to further titrate therapy. At the present time no other inter vention or work-up is indicated as the patient continues to recover from his viral infection.
[2020-06-05] MEDS: ATORVASTATIN CALCIUM 10 MG TABLET PO SCH (22:24)
[2020-06-06 05:05] LABS: HEMATOCRIT 47.5 % (37.9-51.0); MEAN CORPUSCULAR HEMOGLOBIN 28.2 pg (27.0-33.4); MEAN CORPUSCULAR HGB CONC 33.8 g/dL (32.0-36.0); MEAN CORPUSCULAR VOLUME 84 fl (80-97); PLATELET COUNT 443 10^3/uL (150-450); RED BLOOD COUNT 5.69 10^6/uL (4.35-5.55); WHITE BLOOD COUNT 18.8 10^3/uL (4.0-10.5)
[2020-06-06 05:32] LABS: C-REACTIVE PROTEIN < 5.0 mg/L (<10.0)
[2020-06-06] MEDS: ALBUTEROL SULFATE HFA (90 MCG/PUFF) 8 GM MDI IH SCH ×5 (05:35→23:44)
[2020-06-06] MEDS: BENZONATATE 100 MG CAPSULE PO SCH ×3 (05:39→22:22)
[2020-06-06] MEDS: METHYLPREDNISOLONE INJ 40 MG/1 ML SDV IV SCH (05:39)
[2020-06-06] MEDS: CETIRIZINE 10 MG TABLET PO SCH (09:52)
[2020-06-06] MEDS: FOLIC ACID 1 MG TABLET PO SCH (09:52)
[2020-06-06] MEDS: FERROUS SULFATE 325 MG TABLET PO SCH (09:52)
[2020-06-06] MEDS: GLIPIZIDE 5 MG TABLET PO SCH ×2 (09:52→17:19)
[2020-06-06] MEDS: LOSARTAN POTASSIUM 25 MG TABLET PO SCH (09:53)
[2020-06-06] MEDS: METFORMIN HCL 500 MG TABLET PO SCH ×2 (09:53→17:19)
[2020-06-06] MEDS: ASPIRIN 81 MG TABLET, ENT COATED PO SCH (09:53)
[2020-06-06] MEDS: METOPROLOL TARTRATE 25 MG TABLET PO SCH ×2 (09:53→22:22)
[2020-06-06] MEDS: CHOLECALCIFEROL (D3) 1,000 UNIT (25 MCG) TABLET PO SCH (09:53)
[2020-06-06] MEDS: FAMOTIDINE 20 MG TABLET PO SCH ×2 (09:53→22:22)
[2020-06-06] MEDS: INSULIN LISPRO 100 UNIT/ML 3 ML VIAL SUBCUT SCH ×4 (09:54→22:18)
[2020-06-06] MEDS: HYDROCHLOROTHIAZIDE 12.5 MG TABLET PO SCH (09:54)
[2020-06-06] MEDS: ZINC SULFATE 220 MG CAPSULE PO SCH (09:59)
[2020-06-06] MEDS ORDERED: METHYLPREDNISOLONE INJ 40 MG/1 ML SDV IV SCH ×2 (10:00)
[2020-06-06] MEDS: ASCORBIC ACID 500 MG TABLET PO SCH ×2 (10:01→17:19)
[2020-06-06] MEDS: SODIUM CHLORIDE NASAL SPRAY 44 ML NASL SCH ×4 (10:12→22:23)
--- NOTE | 2020-06-06 11:46 | PDOC PROGRESS REPORT ---
Subjective Date:: 06/06/20 Subjective:: Patient feels well today. He remains eager to go back home. Does not have much of an appetite but is still eating a bit. Denies any hematuria. His hematuria has remained resolved since discontinuation of Lovenox. I have encouraged him to do frequent ambulation and discussed with the nurse about ensuring that he has his SCDs on for DVT prophylaxis. Reason For Visit: COVID PNA, HYPOXIA Physical Exam Vital Signs: Temp Pulse Resp BP Pulse Ox 98.1 F 68 18 110/59 L 93 06/06/20 08:26 06/06/20 08:26 06/06/20 08:26 06/06/20 08:26 06/06/20 08:26 Intake & Output 06/05/20 06/06/20 06/07/20 06:59 06:59 06:59 Intake Total 1100 1080 Output Total 600 1375 Balance 500 -295 Weight 82.6 kg 81.4 kg General appearance: PRESENT: no acute distress, cooperative Neck exam: ABSENT: JVD Respiratory exam: PRESENT: symmetrical, unlabored. ABSENT: tachypnea, wheezes Cardiovascular exam: PRESENT: RRR, +S1, +S2. ABSENT: tachycardia GI/Abdominal exam: PRESENT: soft. ABSENT: rebound, rigid, tenderness Musculoskeletal exam: PRESENT: ambulatory Neurological exam: PRESENT: alert, awake, oriented to person, oriented to place, oriented to time, oriented to situation Results Laboratory Results: 06/06/20 04:14 06/05/20 05:20 06/06/20 06/06/20 04:14 04:14 WBC 18.8 H RBC 5.69 H Hgb 16.0 Hct 47.5 MCV 84 MCH 28.2 MCHC 33.8 RDW 15.0 H Plt Count 443 Ferritin 590.00 H C-Reactive Protein < 5.0 05/30/20 05/30/20 05/31/20 09:31 09:31 05:52 Creatine Kinase 106 Troponin I < 0.012 NT-Pro-B Natriuret Pep 06/01/20 06/02/20 06/03/20 06:11 05:12 04:58 Creatine Kinase 81 51 L 30 L Troponin I NT-Pro-B Natriuret Pep 06/04/20 06/05/20 05:47 05:20 Creatine Kinase 33 L 41 L Troponin I NT-Pro-B Natriuret Pep Impressions: Chest X-Ray 05/30/20 09:16 IMPRESSION: Slight increase in basilar interstitial airspace disease when compared to prior exam. Chest/Abdomen CTA 05/30/20 09:26 IMPRESSION: Patchy bilateral airspace disease most marked in the periphery consistent with Coban 19. Probable underlying interstitial fibrosis. No pulmonary emboli. Mediastinal and right hilar adenopathy this could be reactive or neoplastic. Assessment and Plan - Diagnosis (1) Pneumonia due to COVID-19 virus Is this a current diagnosis for this admission?: Yes Plan: Status post ivermectin, remedesvir. Decrease Solu-Medrol to daily dosing. Continue vitamin and zinc supplements SCDs and frequent ambulation for DVT prophylaxis-had gross hematuria a few days back which is resolved since discontinuation of Lovenox (2) Acute respiratory failure with hypoxia Is this a current diagnosis for this admission?: Yes Plan: This morning, his oxygenation was 98 to 100% on 5 L so I decrease his oxygen down to 2 L. (3) Type 2 diabetes mellitus with hyperglycemia Qualifiers: Diabetes mellitus intermediate project manager insulin use: without intermediate project manager use Qualified Code(s): E11.65 - Type 2 diabetes mellitus with hyperglycemia Is this a current diagnosis for this admission?: Yes Plan: Takes metformin and glipizide at home. A1c of 7.2. Now that I am weaning his Solu-Medrol and his sugars have improved, I will decrease his Lantus from every 12 hours to nightly. Could probably be discontinued soon. Continue glipizide and Metformin. Sliding scale and Accu-Cheks. (4) CKD (chronic kidney disease), stage II Is this a current diagnosis for this admission?: Yes Plan: Creatinine remains at baseline 1.3 (5) PVC (premature ventricular contraction) Is this a current diagnosis for this admission?: Yes Plan: Echo done with no evidence of heart failure. Evaluated by cardiology. Recommended Lopressor every 12 hours and following up as outpatient for Holter monitor for quantification of his PVCs. Patient has a servicing rep. (6) Lactic acid acidosis Is this a current diagnosis for this admission?: Yes Plan: Resolved (7) Weakness Is this a current diagnosis for this admission?: Yes Plan: Likely another effect of patient's COVID-19 infection. Has led to multiple falls. Cleared by PT. Has been ambulating by himself adequately. - Time Time Spent with patient: 15-24 minutes Anticipated Discharge Disposition: Home, Self Care Anticipated Discharge Timeframe: 24-48h
[2020-06-06] MEDS: INSULIN GLARGINE,HUM.REC.ANLOG 1,000 UNIT/10 ML VIAL SUBCUT SCH (22:19)
[2020-06-06] MEDS: ATORVASTATIN CALCIUM 10 MG TABLET PO SCH (22:22)
[2020-06-07] MEDS: BENZONATATE 100 MG CAPSULE PO SCH ×3 (05:23→22:38)
[2020-06-07] MEDS: ALBUTEROL SULFATE HFA (90 MCG/PUFF) 8 GM MDI IH SCH ×3 (05:24→17:02)
[2020-06-07] MEDS: INSULIN LISPRO 100 UNIT/ML 3 ML VIAL SUBCUT SCH ×4 (08:26→22:31)
[2020-06-07] MEDS: GLIPIZIDE 5 MG TABLET PO SCH ×2 (08:28→16:57)
[2020-06-07] MEDS: METFORMIN HCL 500 MG TABLET PO SCH ×2 (08:28→16:57)
[2020-06-07] MEDS: ZINC SULFATE 220 MG CAPSULE PO SCH (10:34)
[2020-06-07] MEDS: CHOLECALCIFEROL (D3) 1,000 UNIT (25 MCG) TABLET PO SCH (10:38)
[2020-06-07] MEDS: HYDROCHLOROTHIAZIDE 12.5 MG TABLET PO SCH (10:38)
[2020-06-07] MEDS: FERROUS SULFATE 325 MG TABLET PO SCH (10:38)
[2020-06-07] MEDS: METHYLPREDNISOLONE INJ 40 MG/1 ML SDV IV SCH (10:38)
[2020-06-07] MEDS: FOLIC ACID 1 MG TABLET PO SCH (10:38)
[2020-06-07] MEDS: FAMOTIDINE 20 MG TABLET PO SCH ×2 (10:39→22:37)
[2020-06-07] MEDS: LOSARTAN POTASSIUM 25 MG TABLET PO SCH (10:39)
[2020-06-07] MEDS: ASPIRIN 81 MG TABLET, ENT COATED PO SCH (10:39)
[2020-06-07] MEDS: SODIUM CHLORIDE NASAL SPRAY 44 ML NASL SCH ×4 (10:39→23:00)
[2020-06-07] MEDS: METOPROLOL TARTRATE 25 MG TABLET PO SCH ×2 (10:39→22:37)
[2020-06-07] MEDS: ASCORBIC ACID 500 MG TABLET PO SCH ×2 (10:39→17:01)
[2020-06-07] MEDS: CETIRIZINE 10 MG TABLET PO SCH (10:39)
--- NOTE | 2020-06-07 17:43 | RADIOLOGY REPORT (SQ) ---
EXAM DESCRIPTION: CHEST SINGLE VIEW IMAGES COMPLETED DATE/TIME: 06/07/2020 3:56 pm REASON FOR STUDY: elevated WBC COMPARISON: Chest radiograph 05/30/2020. CTA chest, 05/30/2020. EXAM PARAMETERS: NUMBER OF VIEWS: One view. TECHNIQUE: Single frontal radiographic view of the chest acquired. RADIATION DOSE: NA LIMITATIONS: None. FINDINGS: LUNGS AND PLEURA: Improving aeration with persistent peripheral ground-glass attenuation i n both lungs and bibasilar atelectasis, with no new areas of involvement. No pleural effusion or pne umothorax. MEDIASTINUM AND HILAR STRUCTURES: No masses. Contour normal. HEART AND VASCULAR STRUCTURES: Heart normal in size. Normal vasculature. BONES: No acute findings. HARDWARE: None in the chest. OTHER: No other significant finding. IMPRESSION: Multifocal patchy opacities in both lungs have improved from prior. No new consolidatio n or pleural effusion. TECHNICAL DOCUMENTATION: JOB ID: [id number] 2010 [employer]- All Rights Reserved Reading location - IP/workstation name: [email or web address]
--- NOTE | 2020-06-07 19:30 | PDOC PROGRESS REPORT ---
Subjective Date:: 06/07/20 Subjective:: JOSE GAMEZ is a 69 year old male with hx of DM2, Htn, irregular heart beat no t on anticoagulation, who presents to the hospital via EMS for evaluation of hypoxia and weakness. Patient has been having shortness of breath and cough for the past 1 week. 4 days ago, he tested positive for COVID-19. He has been under home isolation. In the past week he has been having increasing fatigue and weakness in all extremities that has led to a couple of falls. Today EMS arrived after a fall. He denied hitting his head. He was found to be hypoxic at 86 to 88% on room air. In the ER he was noted to be 88% on room air and improved to 92% on 2 L. He is otherwise very comfortable. He denies using oxygen at home. He denies any history of COPD or asthma but does have extensive smoking history of about 30 to 40 years. PAtient seen and examined at bedside. Denies SOB, was weaned off O2 completely. WBC noted to be elevated but he remains afebrile. UA and CXR repeated. Reason For Visit: COVID PNA, HYPOXIA Physical Exam Vital Signs: Temp Pulse Resp BP Pulse Ox 98.8 F 70 17 93/60 L 91 L 06/07/20 16:22 06/07/20 16:22 06/07/20 16:22 06/07/20 16:22 06/07/20 16:22 Intake & Output 06/06/20 06/07/20 06/08/20 06:59 06:59 06:59 Intake Total 1080 710 480 Output Total 1375 950 500 Balance -295 -240 -20 Weight 81.4 kg 80.2 kg General appearance: PRESENT: no acute distress, cooperative Head exam: PRESENT: atraumatic, normocephalic Eye exam: PRESENT: EOMI, PERRLA Mouth exam: PRESENT: moist Neck exam: PRESENT: full ROM Respiratory exam: PRESENT: clear to auscultation aurora, symmetrical, unlabored Cardiovascular exam: PRESENT: RRR, +S1, +S2 Pulses: PRESENT: +2 pedal pulses bilateral GI/Abdominal exam: PRESENT: normal bowel sounds, soft. ABSENT: rebound, tenderness Extremities exam: PRESENT: full ROM Musculoskeletal exam: PRESENT: full ROM Neurological exam: PRESENT: alert, awake, oriented to person, oriented to place, oriented to time, oriented to situation Psychiatric exam: PRESENT: normal mood Skin exam: PRESENT: normal color Results Laboratory Results: 06/06/20 04:14 06/05/20 05:20 05/30/20 05/30/20 05/31/20 09:31 09:31 05:52 Creatine Kinase 106 Troponin I < 0.012 NT-Pro-B Natriuret Pep 26 06/01/20 06/02/20 06/03/20 06:11 05:12 04:58 Creatine Kinase 81 51 L 30 L Troponin I NT-Pro-B Natriuret Pep 06/04/20 06/05/20 05:47 05:20 Creatine Kinase 33 L 41 L Troponin I NT-Pro-B Natriuret Pep Impressions: Chest/Abdomen CTA 05/30/20 09:26 IMPRESSION: Patchy bilateral airspace disease most marked in the periphery consistent with Coban 19. Probable underlying interstitial fibrosis. No pulmonary emboli. Mediastinal and right hilar adenopathy this could be reactive or neoplastic. Chest X-Ray 06/07/20 00:00 IMPRESSION: Multifocal patchy opacities in both lungs have improved from prior. No new consolidation or pleural effusion. Assessment and Plan - Diagnosis (1) Acute respiratory failure with hypoxia Is this a current diagnosis for this admission?: Yes Plan: - weaned off O2 today (2) CKD (chronic kidney disease), stage II Is this a current diagnosis for this admission?: Yes Plan: Creatinine remains at baseline 1.3 (3) Lactic acid acidosis Is this a current diagnosis for this admission?: Yes Plan: Resolved (4) Pneumonia due to COVID-19 virus Is this a current diagnosis for this admission?: Yes Plan: Status post ivermectin, remedesvir. Decrease Solu-Medrol to daily dosing. Continue vitamin and zinc supplements SCDs and frequent ambulation for DVT prophylaxis-had gross hematuria a few days back which is resolved since discontinuation of Lovenox (5) Type 2 diabetes mellitus with hyperglycemia Qualifiers: Diabetes mellitus assisted insulin use: without assisted use Qualified Code(s): E11.65 - Type 2 diabetes mellitus with hyperglycemia Is this a current diagnosis for this admission?: Yes Plan: Takes metformin and glipizide at home. A1c of 7.2. Now that I am weaning his Solu-Medrol and his sugars have improved, I will decrease his Lantus from every 12 hours to nightly. Could probably be discontinued soon. Continue glipizide and Metformin. Sliding scale and Accu-Cheks. (6) Weakness Is this a current diagnosis for this admission?: Yes Plan: Likely another effect of patient's COVID-19 infection. Has led to multiple falls. Cleared by PT. Has been ambulating by himself adequately. (7) Leukocytosis Qualifiers: Leukocytosis type: unspecified Qualified Code(s): D72.829 - Elevated white blood cell count, unspecified Is this a current diagnosis for this admission?: Yes Plan: - WBC 18.8 - no fever - repeat CXR and UA - likely still from steroids. - Time Time Spent with patient: 25-34 minutes Medications reviewed and adjusted accordingly: Yes Anticipated Discharge Disposition: Home, Self Care Anticipated Discharge Timeframe: within 24 hours
[2020-06-07 20:28] LABS: APPEARANCE,URINE CLEAR; BILIRUBIN,URINE NEGATIVE (NEGATIVE); COLOR,URINE YELLOW; GLUCOSE, URINE NEGATIVE (NEGATIVE); KETONES,URINE NEGATIVE (NEGATIVE); LEUKOCYTE ESTERASE,URINE NEGATIVE (NEGATIVE); NITRITE,URINE NEGATIVE (NEGATIVE); PROTEIN,URINE NEGATIVE (NEGATIVE); URINE SPECIFIC GRAVITY 1.024; UROBILINOGEN,URINE NEGATIVE mg/dL (<2.0)
[2020-06-07] MEDS: ATORVASTATIN CALCIUM 10 MG TABLET PO SCH (22:37)
[2020-06-07] MEDS: INSULIN GLARGINE,HUM.REC.ANLOG 1,000 UNIT/10 ML VIAL SUBCUT SCH (22:37)
[2020-06-08] MEDS: ALBUTEROL SULFATE HFA (90 MCG/PUFF) 8 GM MDI IH SCH ×2 (00:12→05:31)
[2020-06-08] MEDS: BENZONATATE 100 MG CAPSULE PO SCH (05:30)
[2020-06-08 07:35] LABS: HEMATOCRIT 50.5 % (37.9-51.0); HEMOGLOBIN 16.8 g/dL (13.5-17.0); MEAN CORPUSCULAR HGB CONC 33.2 g/dL (32.0-36.0); MEAN CORPUSCULAR VOLUME 84 fl (80-97); PLATELET COUNT 486 10^3/uL (150-450); RED BLOOD COUNT 5.98 10^6/uL (4.35-5.55); RED CELL DISTRIBUTION WIDTH 15.2 % (11.5-14.0); WHITE BLOOD COUNT 16.4 10^3/uL (4.0-10.5)
[2020-06-08 08:25] LABS: C-REACTIVE PROTEIN 9.1 mg/L (<10.0)
[2020-06-08] MEDS: INSULIN LISPRO 100 UNIT/ML 3 ML VIAL SUBCUT SCH (09:39)
[2020-06-08] MEDS: ASCORBIC ACID 500 MG TABLET PO SCH (09:55)
[2020-06-08] MEDS: GLIPIZIDE 5 MG TABLET PO SCH (09:55)
[2020-06-08] MEDS: FAMOTIDINE 20 MG TABLET PO SCH (09:55)
[2020-06-08] MEDS: HYDROCHLOROTHIAZIDE 12.5 MG TABLET PO SCH (09:55)
[2020-06-08] MEDS: CHOLECALCIFEROL (D3) 1,000 UNIT (25 MCG) TABLET PO SCH (09:55)
[2020-06-08] MEDS: CETIRIZINE 10 MG TABLET PO SCH (09:56)
[2020-06-08] MEDS: METFORMIN HCL 500 MG TABLET PO SCH (09:56)
[2020-06-08] MEDS: FERROUS SULFATE 325 MG TABLET PO SCH (09:56)
[2020-06-08] MEDS: METHYLPREDNISOLONE INJ 40 MG/1 ML SDV IV SCH (09:56)
[2020-06-08] MEDS: FOLIC ACID 1 MG TABLET PO SCH (09:56)
[2020-06-08] MEDS: ASPIRIN 81 MG TABLET, ENT COATED PO SCH (09:56)
[2020-06-08] MEDS: LOSARTAN POTASSIUM 25 MG TABLET PO SCH (09:56)
[2020-06-08] MEDS: METOPROLOL TARTRATE 25 MG TABLET PO SCH (09:56)
[2020-06-08] MEDS: ZINC SULFATE 220 MG CAPSULE PO SCH (09:57)
[2020-06-08] MEDS: SODIUM CHLORIDE NASAL SPRAY 44 ML NASL SCH (09:57)
[2020-06-08 11:03] VITALS: BP 148/72
--- NOTE | 2020-06-14 15:28 | PDOC DISCHARGE SUMMARY ---
Impression - Admit/DC Date/PCP Admission Date/Primary Care Provider: 05/30/20 11:56 JALIL DELA CRUZ Discharge Date: 06/08/20 - Discharge Diagnosis (1) Acute respiratory failure with hypoxia Is this a current diagnosis for this admission?: Yes (2) CKD (chronic kidney disease), stage II Is this a current diagnosis for this admission?: Yes (3) Lactic acid acidosis Is this a current diagnosis for this admission?: Yes (4) Pneumonia due to COVID-19 virus Is this a current diagnosis for this admission?: Yes (5) Type 2 diabetes mellitus with hyperglycemia Is this a current diagnosis for this admission?: Yes (6) Weakness Is this a current diagnosis for this admission?: Yes (7) Leukocytosis Is this a current diagnosis for this admission?: Yes - Assessment Summary: (1) Acute respiratory failure with hypoxia Is this a current diagnosis for this admission?: Yes Plan: - weaned off O2 today (2) CKD (chronic kidney disease), stage II Is this a current diagnosis for this admission?: Yes Plan: Creatinine remains at baseline 1.3 (3) Lactic acid acidosis Is this a current diagnosis for this admission?: Yes Plan: Resolved (4) Pneumonia due to COVID-19 virus Is this a current diagnosis for this admission?: Yes Plan: Status post ivermectin, remedesvir. Decrease Solu-Medrol to daily dosing. Continue vitamin and zinc supplements SCDs and frequent ambulation for DVT prophylaxis-had gross hematuria a few days back which is resolved since discontinuation of Lovenox (5) Type 2 diabetes mellitus with hyperglycemia Qualifiers: Diabetes mellitus mcfp insulin use: without mcfp use Qualified Code(s): E11.65 - Type 2 diabetes mellitus with hyperglycemia Is this a current diagnosis for this admission?: Yes Plan: Takes metformin and glipizide at home. A1c of 7.2. Now that I am weaning his Solu-Medrol and his sugars have improved, I will decrease his Lantus from every 12 hours to nightly. Could probably be disco ntinued soon. Continue glipizide and Metformin. Sliding scale and Accu-Cheks. (6) Weakness Is this a current diagnosis for this admission?: Yes Plan: Likely another effect of patient's COVID-19 infection. Has led to multiple falls. Cleared by PT. Has been ambulating by himself adequately. (7) Leukocytosis Qualifiers: Leukocytosis type: unspecified Qualified Code(s): D72.829 - Elevated white blood cell count, unspecified Is this a current diagnosis for this admission?: Yes Plan: - WBC 18.8 - no fever - repeat CXR and UA - likely still from steroids. - Additional Information Resuscitation Status: Full Code Discharge Diet: As Tolerated Discharge Activity: Activity As Tolerated Referrals: CARLEY QUIROZ PA-C [PHYSICIAN DAG [facility]AYER] - 06/18/20 11:15 am Prescriptions: Dexamethasone [Decadron 4 mg Tablet] 4 mg PO DAILY 4 Days #4 tablet Aspirin [Ecotrin 81 mg EC Tablet] 81 mg PO DAILY 30 Days #30 tabec Ascorbic Acid [Vitamin C 500 mg Tablet] 1,000 mg PO BID 30 Days #60 tablet Zinc Sulfate [Zinc-220 Capsule] 220 mg PO DAILY 30 Days #30 capsule Home Medications: Glipizide 10 mg PO DAILY 10/13/11 Temazepam [Restoril] 30 mg PO QHS 10/13/11 Potassium Chloride [Klor-Con 10 Meq Tablet ER] 10 meq PO DAILY 10/17/12 Atorvastatin Calcium [Lipitor 10 mg Tablet] 10 mg PO DAILY 02/11/16 Cinnamon Bark [Cinnamon Bark 500 mg Capsule] 1,000 mg PO DAILY 02/11/16 Folic Acid 1 mg PO DAILY 07/05/16 Omeprazole 20 mg PO DAILY 07/05/16 Albuterol Sulfate [Proair HFA Inhalation Aerosol 8.5 gm MDI] 2 puff IH Q4HP PRN 05/30/20 Benzonatate [Tessalon Perles 100 mg Capsule] 200 mg PO Q8 05/30/20 Cetirizine HCl [Zyrtec 10 mg Tablet] 10 mg PO DAILY 05/30/20 Ferrous Sulfate [Feosol 325 mg Tablet] 325 mg PO BID 05/30/20 Hydrochlorothiazide [Hydrodiuril 12.5 mg Tablet] 12.5 mg PO QAM 05/30/20 Metformin HCl [Glucophage 500 mg Tablet] 1,000 mg PO BIDACBS 05/30/20 Methotrexate Sodium [Rheumatrex 2.5 mg Tablet] 2.5 mg PO .QWEEKLY 05/30/20 Metoprolol Tartrate [Lopressor 25 mg Tablet] 25 mg PO DAILY 05/30/20 Rice-3/Dha/Epa/Fish Oil [Fish Oil 1,000 mg Softgel] 1,000 mg PO DAILY 05/30/20 Telmisartan 20 mg PO DAILY 05/30/20 Ascorbic Acid [Vitamin C 500 mg Tablet] 1,000 mg PO BID 30 Days #60 tablet 06/08/20 Aspirin [Ecotrin 81 mg EC Tablet] 81 mg PO DAILY 30 Days #30 tabec 06/08/20 Dexamethasone [Decadron 4 mg Tablet] 4 mg PO DAILY 4 Days #4 tablet 06/08/20 Zinc Sulfate [Zinc-220 Capsule] 220 mg PO DAILY 30 Days #30 capsule 06/08/20 History of Present Illiness History of Present Illness: JOSE GAMEZ is a 69 year old male, with hx of DM2, Htn, irregular heart beat not on anticoagulation, who presents to the hospital via EMS for evaluation of hypoxia and weakness. Patient has been having shortness of breath and cough for the past 1 week. 4 days ago, he tested positive for COVID-19. He has been under home isolation. In the past week he has been having increasing fatigue and weakness in all extremities that has led to a couple of falls. Today EMS arrived after a fall. He denied hitting his head. He was found to be hypoxic at 86 to 88% on room air. In the ER he was noted to be 88% on room air and improved to 92% on 2 L. He is otherwise very comfortable. He denies using oxygen at home. He denies any history of COPD or asthma but does have extensive smoking history of about 30 to 40 years. Hospital Course Hospital Course: The patient received Ivermectin, remdesivir and steroids. He continued to improve the succeeding days and was evetually weaned completely off Oxygen. During this hospital stay, cardiology was consulted due to frequent PVCs. Echo was done which showed normal LV systolic function, EF 55 to 60%. He was enetually discharged on the 8th hospital day. Physical Exam Vital Signs: Temp Pulse Resp BP Pulse Ox 97.5 F 67 20 148/72 H 91 L 06/08/20 11:02 06/08/20 11:02 06/08/20 11:02 06/08/20 11:02 06/08/20 11:02 General appearance: PRESENT: no acute distress, cooperative Head exam: PRESENT: atraumatic, normocephalic Eye exam: PRESENT: EOMI, PERRLA Mouth exam: PRESENT: moist Neck exam: PRESENT: full ROM Respiratory exam: PRESENT: clear to auscultation aurora, symmetrical, unlabored Cardiovascular exam: PRESENT: RRR, +S1, +S2 Pulses: PRESENT: +2 pedal pulses bilateral GI/Abdominal exam: PRESENT: normal bowel sounds, soft. ABSENT: rebound, tenderness Extremities exam: PRESENT: full ROM Musculoskeletal exam: PRESENT: full ROM Neurological exam: PRESENT: alert, awake, oriented to person, oriented to place, oriented to time, oriented to situation Psychiatric exam: PRESENT: normal mood Skin exam: PRESENT: normal color Results Laboratory Results: WBC 16.4 10^3/uL (4.0-10.5) H 06/08/20 06:36 RBC 5.98 10^6/uL (4.35-5.55) H 06/08/20 06:36 Hgb 16.8 g/dL (13.5-17.0) 06/08/20 06:36 Hct 50.5 % (37.9-51.0) 06/08/20 06:36 MCV 84 fl (80-97) 06/08/20 06:36 MCH 28.0 pg (27.0-33.4) 06/08/20 06:36 MCHC 33.2 g/dL (32.0-36.0) 06/08/20 06:36 RDW 15.2 % (11.5-14.0) H 06/08/20 06:36 Plt Count 486 10^3/uL (150-450) H 06/08/20 06:36 Lymph % (Auto) 9.0 % (13-45) L 05/31/20 05:52 Elliott % (Auto) 14.5 % (3-13) H 05/31/20 05:52 Eos % (Auto) 0.0 % (0-6) 05/31/20 05:52 Baso % (Auto) 0.3 % (0-2) 05/31/20 05:52 Absolute Neuts (auto) 4.5 10^3/uL (1.7-8.2) 05/31/20 05:52 Absolute Lymphs (auto) 0.5 10^3/uL (0.5-4.7) 05/31/20 05:52 Absolute Monos (auto) 0.9 10^3/uL (0.1-1.4) 05/31/20 05:52 Absolute Eos (auto) 0.0 10^3/uL (0.0-0.6) 05/31/20 05:52 Absolute Basos (auto) 0.0 10^3/uL (0.0-0.2) 05/31/20 05:52 Total Counted 100 05/30/20 09:31 Seg Neutrophils % 76.2 % (42-78) 05/31/20 05:52 Seg Neuts % (Manual) 83 % (42-78) H 05/30/20 09:31 Band Neutrophils % 3 % (3-5) 05/30/20 09:31 Lymphocytes % (Manual) 3 % (13-45) L 05/30/20 09:31 Atypical Lymphs % 2 % (0) 05/30/20 09:31 Monocytes % (Manual) 8 % (3-13) 05/30/20 09:31 Eosinophils % (Manual) 0 % (0-6) 05/30/20 09:31 Basophils % (Manual) 1 % (0-2) 05/30/20 09:31 Abs Neuts (Manual) 7.0 10^3/uL (1.7-8.2) 05/30/20 09:31 Abs Lymphs (Manual) 0.4 10^3/uL (0.5-4.7) L 05/30/20 09:31 Abs Monocytes (Manual) 0.6 10^3/uL (0.1-1.4) 05/30/20 09:31 Absolute Eos (Manual) 0.0 10^3/uL (0.0-0.6) 05/30/20 09:31 Abs Basophils (Manual) 0.1 10^3/uL (0.0-0.2) 05/30/20 09:31 Clumped Platelets PRESENT 05/30/20 09:31 Platelet Comment ADEQUATE 05/30/20 09:31 Anisocytosis SLIGHT 05/30/20 09:31 D-Dimer 1.77 ug/mL (0.00-0.50) H 06/08/20 06:36 Carbonic Acid 0.95 mmol/L (1.05-1.35) L 06/03/20 10:58 HCO3/H2CO3 Ratio 22:1 06/03/20 10:58 ABG pH 7.44 (7.35-7.45) 06/03/20 10:58 ABG pCO2 31.5 mmHg (35-45) L 06/03/20 10:58 ABG pO2 62.7 mmHg (80-100) L 06/03/20 10:58 ABG HCO3 20.9 mmol/L (20-24) 06/03/20 10:58 ABG Total CO2 21.9 mmol/L (23-27) L 06/03/20 10:58 ABG O2 Saturation 93.1 % (94-98) L 06/03/20 10:58 ABG Base Excess -2.0 mmol/L 06/03/20 10:58 VBG pH 7.41 (7.30-7.42) 05/30/20 09:31 VBG pCO2 33.7 mmHg (35-63) L 05/30/20 09:31 VBG HCO3 20.8 mmol/L (20-32) 05/30/20 09:31 VBG Base Excess -2.7 mmol/L 05/30/20 09:31 FiO2 100% 06/03/20 10:58 Sodium 134.2 mmol/L (137-145) L 06/05/20 05:20 Potassium 5.0 mmol/L (3.6-5.0) 06/05/20 05:20 Chloride 103 mmol/L (98-107) 06/05/20 05:20 Carbon Dioxide 19 mmol/L (22-30) L 06/05/20 05:20 Anion Gap 12 (5-19) 06/05/20 05:20 BUN 43 mg/dL (7-20) H 06/05/20 05:20 Creatinine 1.35 mg/dL (0.52-1.25) H 06/05/20 05:20 Est GFR ( Amer) > 60 (>60) 06/05/20 05:20 Est GFR (MDRD) Non-Af 52 (>60) L 06/05/20 05:20 Glucose 187 mg/dL (75-110) H 06/05/20 05:20 POC Glucose 94 mg/dL (70-110) 06/08/20 08:39 Hemoglobin A1c % 7.2 % (4.7-6.0) H 06/04/20 05:47 Lactic Acid 0.9 mmol/L (0.7-2.1) 05/31/20 05:52 Calcium 9.6 mg/dL (8.4-10.2) 06/05/20 05:20 Phosphorus 2.7 mg/dL (2.5-4.5) 05/30/20 09:31 Magnesium 2.3 mg/dL (1.6-2.3) 06/05/20 05:20 Ferritin 791.00 ng/mL (17.9-464.0) H 06/08/20 06:36 Total Bilirubin 0.9 mg/dL (0.2-1.3) 06/05/20 05:20 Direct Bilirubin 0.4 mg/dL (0.0-0.4) 06/05/20 05:20 Neonat Total Bilirubin Not Reportable 06/05/20 05:20 Neonat Direct Bilirubin Not Reportable 06/05/20 05:20 Neonat Indirect Bili Not Reportable 06/05/20 05:20 AST 38 U/L (17-59) 06/05/20 05:20 ALT 66 U/L (<50) H 06/05/20 05:20 Alkaline Phosphatase 51 U/L (38-126) 06/05/20 05:20 Lactate Dehydrogenase 290 U/L (120-246) H 05/31/20 05:52 Creatine Kinase 41 U/L (55-170) L 06/05/20 05:20 Troponin I < 0.012 ng/mL 05/30/20 09:31 C-Reactive Protein 9.1 mg/L (<10.0) 06/08/20 06:36 NT-Pro-B Natriuret Pep 26 pg/mL (<125) 05/30/20 09:31 Total Protein 6.2 g/dL (6.3-8.2) L 06/05/20 05:20 Albumin 3.4 g/dL (3.5-5.0) L 06/05/20 05:20 Urine Color YELLOW 06/07/20 17:30 Urine Appearance CLEAR 06/07/20 17:30 Urine pH 5.0 (5.0-9.0) 06/07/20 17:30 Ur Specific [place] 1.024 06/07/20 17:30 Urine Protein NEGATIVE mg/dL (NEGATIVE) 06/07/20 17:30 Urine Glucose (UA) NEGATIVE mg/dL (NEGATIVE) 06/07/20 17:30 Urine Ketones NEGATIVE mg/dL (NEGATIVE) 06/07/20 17:30 Urine Blood NEGATIVE (NEGATIVE) 06/07/20 17:30 Urine Nitrite NEGATIVE (NEGATIVE) 06/07/20 17:30 Urine Bilirubin NEGATIVE (NEGATIVE) 06/07/20 17:30 Urine Urobilinogen NEGATIVE mg/dL (<2.0) 06/07/20 17:30 Ur Leukocyte Esterase NEGATIVE (NEGATIVE) 06/07/20 17:30 Urine WBC (Auto) 1 /HPF 06/07/20 17:30 Urine RBC (Auto) 2 /HPF 06/07/20 17:30 U Hyaline Cast (Auto) 2 /LPF 06/07/20 17:30 Urine Bacteria (Auto) 1+ /HPF 06/07/20 17:30 Squamous Epi Cells Auto 1 /HPF 06/07/20 17:30 Urine Mucus (Auto) RARE /LPF 06/07/20 17:30 Urine Ascorbic Acid 40 (NEGATIVE) H 06/07/20 17:30 05/30/20 05/30/20 09:31 09:31 Troponin I < 0.012 NT-Pro-B Natriuret Pep 26 Impressions: Chest X-Ray 05/30/20 09:16 IMPRESSION: Slight increase in basilar interstitial airspace disease when compared to prior exam. Chest/Abdomen CTA 05/30/20 09:26 IMPRESSION: Patchy bilateral airspace disease most marked in the periphery consistent with Coban 19. Probable underlying interstitial fibrosis. No pulmonary emboli. Mediastinal and right hilar adenopathy this could be reactive or neoplastic. Chest X-Ray 06/07/20 00:00 IMPRESSION: Multifocal patchy opacities in both lungs have improved from prior. No new consolidation or pleural effusion. Plan Plan of Treatment: - ff.up with PCP Stroke Is this a Stroke Patient?: No Acute Heart Failure Is this a Heart Failure Patient?: No
== END 2020-06-08 11:29 | disposition home or self-care (01) | DRG 177 ==
LOC: ER 09:15 → EH 11:56 → 3S 22:59
PROVIDERS: ADMIT Internal Medicine; ATTEND Internal Medicine
PROC: XW033E5 Introduction of Remdesivir Anti-infective into Peripheral Vein, Percutaneous Approach, New Technology Group 5 (ICD-10-PCS; principal; 2020-05-30)
DX: U07.1 COVID-19 (principal); J12.82 Pneumonia due to coronavirus disease 2019; J96.01 Acute respiratory failure with hypoxia; E87.2 Acidosis; I27.20 Pulmonary hypertension, unspecified; E11.22 Type 2 diabetes mellitus with diabetic chronic kidney disease; E11.51 Type 2 diabetes mellitus with diabetic peripheral angiopathy without gangrene; I12.9 Hypertensive chronic kidney disease with stage 1 through stage 4 chronic kidney disease, or unspecified chronic kidney disease; E11.65 Type 2 diabetes mellitus with hyperglycemia; N18.2 Chronic kidney disease, stage 2 (mild); R53.1 Weakness; I25.10 Atherosclerotic heart disease of native coronary artery without angina pectoris; E78.5 Hyperlipidemia, unspecified; M17.0 Bilateral primary osteoarthritis of knee; I49.3 Ventricular premature depolarization; R31.0 Gross hematuria; Z79.84 Long term (current) use of oral hypoglycemic drugs; Z79.899 Other long term (current) drug therapy; Z79.82 Long term (current) use of aspirin; Z87.891 Personal history of nicotine dependence; Z95.5 Presence of coronary angioplasty implant and graft; Z87.01 Personal history of pneumonia (recurrent); Z95.820 Peripheral vascular angioplasty status with implants and grafts; Z88.1 Allergy status to other antibiotic agents
CPT/HCPCS: 36415; 36600; 71045; 71275; 80048; 80053; 81001; 82550; 82728; 82803; 82962; 83036; 83605; 83615; 83735; 83880; 84100; 84484; 85025; 85027; 85379; 86140; 87040; 93005; 93010; 93306; 94799; 99285; J1644; J1650; J1815; J2920; J3490; J7030; J7050; J8540